=== PATIENT | male | born 1980 | race Caucasian/White ===

== ENCOUNTER → 2019-12-13 14:42 | Outpatient (BNVA) | payer OTHER, SELFPAY | PROVIDERS: Visit Provider Psychiatry & Neurology Psychiatry | DX: F43.12 Post-traumatic stress disorder, chronic (principal); F12.20 Cannabis dependence, uncomplicated; F10.20 Alcohol dependence, uncomplicated | CPT/HCPCS: 99204 ==

== ENCOUNTER 2020-04-10 09:23 | Emergency (ER) | payer MEDICARE, SELFPAY ==
[2020-04-10 10:05] VITALS: BP 135/84; PULSE 84; RESP 20; TEMP 36.8; O2SAT 96; BMI 21.5
--- NOTE | 2020-04-10 10:13 | W.ED.WOUNDLC ---
HPI - Wound/Laceration General: Chief Complaint: Wound/Laceration Stated Complaint: CHIN LAC Time Seen by Provider: 04/10/20 09:39 Source: patient Mode of arrival: ambulatory Limitations: no limitations History of Present Illness: HPI narrative: Patient is a 39-year-old male presents to ED today with complaints of a chin laceration that he sustained after accidentally tripping and falling at around 2am. He denies any other injury sustained during the fall. No LOC. No neck or back pain at this time. No headache. Last tetanus was 2013. Onset (ago): hour(s) Location: face Place: home Patient tetanus UTD: Yes Context: accidental Associated symptoms: Reports no associated symptoms Review of Systems Eyes: Denies: change in vision, blurry vision, photophobia, floaters or seeing flashes Musc: Denies: neck pain or back pain Skin/Breast: Reports: other (chin laceration ) Neuro: Denies: headache(s) PFSH ED PFSH: Social History (Updated 12/13/19 @ 15:02 by Ema Reveles LPN) Smoking and tobacco status: former smoker Quit status (tobacco): has quit using tobacco Year quit tobacco: 2016 Former quit date comment: 1 PPD for 15 years Second hand smoke exposure: No Physical Exam Const: COMMON NORMALS: no acute distress, average body habitus, patient oriented x3, no limitations, alert and well nourished Neck/C-Spine: COMMON NORMALS: full ROM CERVICAL SPINE: Yes cervical ROM normal, No pain with cervical ROM and No Cervical spine tenderness Back/Pelvis: COMMON NORMALS: thoracic and lumbar spine normal to inspection, no thoracic nor lumbar tenderness and thoraco-lumbar ROM normal Neuro: CEFERINO COMA SCALE: document GCS findings Ceferino coma scale eye opening: Spontaneous [place] coma scale verbal response: Orientated [place] coma scale motor response: Obey commands Ceferino coma scale total score: 15 COMMON NORMALS: patient oriented x3, CN's II-XII intact bilaterally, moves all extremities, no focal motor deficits, no sensory deficits noted and gait normal (apart from chronic limp from R LE injury) SENSORIUM/ORIENTATION: Yes alert Skin: OTHER: 1.5cm gapping chin laceration present; no bleeding Procedures Laceration Laceration 1: Site: face (chin) Size (cm): 1.5 Description: linear Depth: simple, single layer Local Anesthetic: lidocaine 1% and with epi Amount of anesthesia used (mL): 2.0 Pre-repair: wound explored and irrigated extensively Skin layer closed with: nylon Size (cm): 4-0 Number of sutures: 5 Technique: simple, interrupted Course Vital Signs: Vital signs: Vital Signs Temperature 98.2 F 04/10/20 10:05 Pulse Rate 84 04/10/20 10:05 Respiratory Rate 20 H 04/10/20 10:05 Blood Pressure 135/84 04/10/20 10:05 Pulse Oximetry 96 04/10/20 10:05 Discharge Plan Discharge Patient Disposition: Home, Self-Care Clinical Impression: Fall on same level from tripping as cause of accidental injury Chin laceration Qualifiers: Encounter type: initial encounter Qualified Code(s): S01.81XA - Laceration without foreign body of other part of head, initial encounter Condition: Stable Prescriptions: New cephalexin [Keflex] 500 mg capsule 500 mg PO Q6H 7 Days Qty: 28 RF: 0 No Action Multiple Vitamins Tablet 1 tab PO DAILY RF: 0 ibuprofen 800 mg Tablet 800 mg PO PRN RF: 0 Discharge Orders: Discharge Order (Routine); Ordered 04/10/20 Ordered By: Mary Deluna Referrals: FERNANDO [Other] Patient Instructions: Suture Care (ED), Laceration (ED) Activity Restrictions/Additional Instructions: SUTURES NEED TO BE CUT OUT IN 7 DAYS. Coding Level of Care Code ED Icing And Glaze Maker for Devan Fwd Exam Expanded Problem Focused
--- NOTE | 2020-04-10 11:14 | PC.NURSE ---
staff educator in room for sutures
[2020-04-10 11:43] VITALS: PULSE 80; RESP 20; O2SAT 97
--- NOTE | 2020-04-17 11:35 | PC.NURSE ---
Removed 5 sutures from pt's chin. Lac intact, no S/S of infection.
== END 2020-04-10 11:46 | disposition home or self-care (01) ==
PROVIDERS: Emergency Provider Physician Assistant
DX: S01.81XA Laceration without foreign body of other part of head, initial encounter (principal); W01.0XXA Fall on same level from slipping, tripping and stumbling without subsequent striking against object, initial encounter; Z87.891 Personal history of nicotine dependence
CPT/HCPCS: 12011; 12345; 99282; J2001

== ENCOUNTER 2020-07-09 13:22 | Outpatient (CLI) | payer MEDICARE, SELFPAY ==
--- NOTE | 2020-07-09 13:32 | XR_ITS ---
WS: [id number] RIGHT KNEE: 3 VIEW(S) TECHNIQUE: AP, oblique(s) and lateral. HISTORY: RIGHT LEG PAIN COMPARISON: None available. Extensive hardware is noted in the proximal tibia and fibula which has not been completely included o n this knee radiograph. Several of the screws are fractured. Mild joint space narrowing medial and lateral compartments. Slight lateral subluxation of the tibia. No joint effusion. No soft tissue abnormality. XR/XR knee RT 3V* [id number] IMPRESSION: 1. No acute knee abnormality. No joint effusion. 2. Patient has extensive hardware in the proximal tibia and fibula. This was i ncompletely included on this knee series. Several of the screws are fractured. Similar findings were seen on 10/09/2019.
== END 2020-07-09 13:23 | disposition home or self-care (01) ==
LOC: RADWPI 13:29
PROVIDERS: Visit Provider Nurse Practitioner Family
DX: M79.604 Pain in right leg (principal)
CPT/HCPCS: 73562

== ENCOUNTER → 2020-08-04 08:21 | Outpatient (BNVA) | payer MEDICARE, SELFPAY | PROVIDERS: Referring Provider Nurse Practitioner Family; Visit Provider Anesthesiology Pain Medicine | DX: G89.29 Other chronic pain (principal); M79.604 Pain in right leg; R29.898 Other symptoms and signs involving the musculoskeletal system; F10.20 Alcohol dependence, uncomplicated; F43.12 Post-traumatic stress disorder, chronic; Z79.899 Other long term (current) drug therapy | CPT/HCPCS: 99203; 99204 ==

== ENCOUNTER 2021-09-25 11:46 | Emergency (ER) | payer MEDICARE, SELFPAY ==
[2021-09-25 12:26] VITALS: BP 134/86; PULSE 117; RESP 18; TEMP 37.1; O2SAT 97; BMI 20.7
--- NOTE | 2021-09-25 12:46 | W.ED.SKABFB ---
HPI - Skin/Abscess/Foreign Bdy General: Chief complaint: Skin/Abscess/Foreign Body Stated complaint: POSS SPIDER BITS ON LLE & RUE Time Seen by Provider: 09/25/21 12:35 Source: patient and family Mode of arrival: wheelchair Limitations: no limitations History of Present Illness: HPI narrative: Patient is a 40-year-old male presents to ED today along with his significant other for concerns of skin lesions. Significant other states she has seen multiple spiders in their trailer and is concerned for possible spider bites. Patient states he has 3 lesions to his left leg and one to his right elbow. He denies history of staph or MRSA. No fever/chills. MD complaint: insect bite/sting and abscess/boil Onset (ago): day(s) Tetanus up to date: yes Location: RUE and LLE Severity: moderate Quality: burning Pain Consistency: constant Relieving factors: none Exacerbating factors: none Associated symptoms: Reports no associated symptoms; Deny chills, fever(s), nausea or vomiting Treatments prior to arrival: none Review of Systems Const: Denies: fever(s), chills, body aches, fatigue or malaise Card: Denies: chest pain Resp: Denies: dyspnea GI: Denies: abdominal pain, nausea or vomiting Skin/Breast: Reports: new lesions Neuro: Denies: numbness in extremities or sensory changes [facility] ED PFSH: Medical History (Updated 09/25/21 @ 12:46 by JOSEFINA Ching) S/p tibial fracture TIBIA / FIBULA FX REPAIR Family History (Updated 08/04/20 @ 08:42 by Macie Lopez LPN) Denies family history of Anesthesia complication Bleeding disorder Social History (Updated 08/04/20 @ 08:44 by Macie Lopez LPN) Smoking and tobacco status: former smoker Quit status (tobacco): has quit using tobacco Year quit tobacco: 2017 Former quit date comment: 1 PPD for 15 years Second hand smoke exposure: No Alcohol intake: current Alcohol intake frequency: few times a month Alcohol type: beer Lives independently: Yes History of recent travel: No Physical Exam Const: COMMON NORMALS: no acute distress, patient oriented x3, no limitations and alert GENERAL APPEARANCE: cooperative Resp: COMMON NORMALS: normal respiratory effort and clear to auscultation bilaterally AUSCULTATION: clear to auscultation bilaterally Cardio: COMMON NORMALS: regular rhythm RATE: tachycardic (mild) RHYTHM: regular rhythm Extremity: OTHER: R LE amputation EXTREMITY IMAGE (FRONT): 1. shallow ulcerative developing abscess; no fluctuance or fluid collection 2. 1.5cm hemorrhagic developing abscess w/o fluctuance; scant drainage present-culture attempted 3. small 1-2cm scabbed area w/o induration or fluctuance Neuro: COMMON NORMALS: patient oriented x3 SENSORIUM/ORIENTATION: Yes alert Skin: NARRATIVE SKIN EXAM: see extremity assessment; several abscess present none of which are amendable to drainage at this time; none with erythema that extends beyond wound edges; no lymphangitic streaking Course Vital Signs: Vital signs: Vital Signs Temperature 98.7 F 09/25/21 12:26 Pulse Rate 117 H 09/25/21 12:26 Respiratory Rate 18 09/25/21 12:26 Blood Pressure 134/86 09/25/21 12:26 Pulse Oximetry 97 09/25/21 12:26 MDM - Skin/Abscess/Foreign Bdy MDM Narrative: Medical decision making narrative: Patient here with multiple non-drainable abscesses most likely secondary to staph. There is one hemorrhagic lesion that does look somewhat suspicious for a possible spider bite. Culture was attempted from the small amount of drainage present. Will place on Bactrim and recommend follow-up with his primary care early next week for reevaluation. Return to ED precautions given. Discharge Plan Discharge Patient Disposition: Home Clinical Impression: Abscess of multiple sites Condition: Stable Prescriptions: New Bactrim DS 800-160 mg tablet 2 tab PO BID 7 Days Qty: 28 RF: 0 No Action citalopram [Celexa] 20 mg tablet 20 mg PO DAILY RF: 0 meloxicam 15 mg tablet 15 mg PO DAILY Qty: 30 RF: 0 gabapentin 300 mg capsule 300 mg PO TID Qty: 90 RF: 0 Multiple Vitamins Tablet 1 tab PO DAILY RF: 0 Discharge Orders: Discharge ED (Routine); Ordered 09/25/21 Ordered By: Mary Deluna Referrals: Lowell Fernandez [Primary Care Provider] - Patient Instructions: Brown Recluse Spider Bite (ED), Abscess (ED), Skin Abscess, Skin Abscess - Antibiotics Coding Level of Care Code ED Wire Brush Operator for Chg Wendy
--- NOTE | 2021-09-26 12:14 | PC.NURSE ---
Patient contacted regarding Group A Strep culture of wound, message left. Patient is to continue on Bactrim and begin Penicillin V potassium mg tab, take one tab PO q8HRS X 7 days. Will attempt to contact patient again for pharmacy verification to all in new Penicillin.
--- NOTE | 2021-09-26 12:26 | PC.NURSE ---
Medications called in [facility] pharmacy in [place], [place]
== END 2021-09-25 13:01 | disposition home or self-care (01) ==
PROVIDERS: Emergency Provider Physician Assistant; PCP Clinical Nurse Specialist Adult Health
DX: L02.416 Cutaneous abscess of left lower limb (principal); Z87.891 Personal history of nicotine dependence
CPT/HCPCS: 87070; 87075; 87077; 87186; 87205; 99283

== ENCOUNTER 2022-01-20 05:00 | Emergency (ER) | payer MEDICARE, SELFPAY ==
[2022-01-20] VITALS (19 sets, daily range): BP systolic 93–144; BP diastolic 66–103; PULSE 101–135; RESP 12–28; TEMP 36.4–36.7; O2SAT 85–100; BMI 19.9
--- NOTE | 2022-01-20 05:04 | CTR_ITS ---
PROCEDURE INFORMATION: Exam: CT Head Without Contrast Exam date and time: 01/20/2022 5:41 AM Age: 41 years old Clinical indication: Patient HX: Seizure activity with reported multiple falls. Patient had active seizure with emesis on CT couch. TECHNIQUE: Imaging protocol: Computed tomography of the head without contrast. Total images: 205 Radiation optimization: All CT scans at this facility use at least one of these dose optimization techniques: automated exposure control; mA and/or kV adjustment per patient size (includes targeted exams where dose is matched to clinical indication); or iterative reconstruction. COMPARISON: No relevant prior studies available. RADIATION DOSE METRICS: Total DLP (mGy-cm): 525.11 FINDINGS: Brain: Normal. No hemorrhage. Unremarkable white matter. No mass effect. Cerebral ventricles: No ventriculomegaly. Paranasal sinuses: Near complete opacification of the right maxillary sinus. Mastoid air cells: Visualized mastoid air cells are well aerated. Bones/joints: Temporomandibular joint degeneration. Soft tissues: Unremarkable. CT/CT head wo con* [id number] IMPRESSION: No acute intracranial abnormality.
--- NOTE | 2022-01-20 05:04 | ECG_ITS ---
[facility] Test Date: 2022-01-20 Pat Name: Pool Dubose Department: Room: Gender: Male [employer] Director: : 1980 Requested By: Guanaco Bee Order Number: [id number] Humberto MD: Stephen Rodriguez M.D. Measurements Intervals [place] Rate: 127 P: 74 SD: 198 QRS: -64 QRSD: 108 T: 82 QT: 411 QTc: 599 Interpretive Statements SINUS TACHYCARDIA INDETERMINATE AXIS LEFT ANTERIOR FASCICULAR BLOCK [QRS AXIS <= -45, QR IN I, RS IN II] MODERATE ST DEPRESSION [0.05+ mV ST DEPRESSION] No previous ECG available for comparison Electronically Signed On 01-20-2022 19:17:57 CDT by Stephen Rodriguez M.D. [email or web address]
--- NOTE | 2022-01-20 05:04 | CTR_ITS ---
PROCEDURE INFORMATION: Exam: CT Cervical Spine Without Contrast Exam date and time: 01/20/2022 5:44 AM Age: 41 years old Clinical indication: Injury or trauma; Blunt trauma; Patient HX: Seizure activity with reported multiple falls. Patient had active seizure with emesis on CT couch. ; Additional info: Fall TECHNIQUE: Imaging protocol: Computed tomography images of the cervical spine without contrast. Total images: 256 Radiation optimization: All CT scans at this facility use at least one of these dose optimization techniques: automated exposure control; mA and/or kV adjustment per patient size (includes targeted exams where dose is matched to clinical indication); or iterative reconstruction. COMPARISON: CT head wo con* [id number] 01/20/2022 5:41 AM RADIATION DOSE METRICS: Total DLP (mGy-cm): 639.35 FINDINGS: Bones/joints: No acute fracture. Normal alignment. Discs/Spinal canal/Neural foramina: C4-7 Degenerative disc disease with disc space narrowing and osteophyte formation. Uncovertebral joint degeneration is present. Lungs: There are multiple subpleural blebs in the lung apices. Soft tissues: Unremarkable. Other findings: Examination is motion limited. CT/CT cervical spin wo con* [id number] IMPRESSION: No acute findings.
--- NOTE | 2022-01-20 05:04 | XRR_ITS ---
PROCEDURE INFORMATION: Exam: XR Chest Exam date and time: 01/20/2022 4:25 AM Age: 41 years old Clinical indication: Other: Seizure TECHNIQUE: Imaging protocol: XR of the chest. Views: 1 view. COMPARISON: No relevant prior studies available. FINDINGS: Lungs: No focal airspace disease. Pleural spaces: Unremarkable. No pleural effusion. No pneumothorax. Heart/Mediastinum: Cardiomediastinal silhouette is within normal limits. Bones/joints: Plate and screw fixation of a remote right clavicle fracture. XR/XR chest 1V portable [id number] IMPRESSION: No acute cardiopulmonary abnormality.
--- NOTE | 2022-01-20 05:07 | W.ED.SEIZURE ---
Documented by User: Guanaco Bee MD 01/20/22 05:37 HPI - Seizure General: Chief Complaint: Seizure Stated Complaint: SEIZURE Time Seen by Provider: 01/20/22 05:04 Source: EMS Mode of arrival: EMS Limitations: altered mental status History of Present Illness: HPI Narrative: 41-year-old male is here by EMS for having multiple seizures tonight. He has a long history of alcoholism does have a history of withdrawal seizures and seizures in the past. He is not on any seizure medication. Patient here is altered not able to get any answers from here. He does have multiple bruises to his head that appear old EMS states that he has had multiple falls over the last few days per his family. He had 1 witnessed seizure per EMS. Review of Systems General: Reports: ROS unobtainable due to mental status [facility] ED PFSH: Medical History S/p tibial fracture TIBIA / FIBULA FX REPAIR Family History Denies family history of Anesthesia complication Bleeding disorder Social History Smoking and tobacco status: former smoker Quit status (tobacco): has quit using tobacco Year quit tobacco: 2017 Former quit date comment: 1 PPD for 15 years Second hand smoke exposure: No Alcohol intake: current Alcohol intake frequency: few times a month Alcohol type: beer Lives independently: Yes History of recent travel: No Physical Exam Const: COMMON NORMALS: negative for patient oriented x3 GENERAL APPEARANCE: disheveled and frail appearing HENMT: COMMON NORMALS: normocephalic; head/scalp not atraumatic (Multiple contusions to forehead) HEAD & SCALP: normocephalic; not atraumatic (Multiple contusions to forehead) Eye: COMMON NORMALS: Equal, round and reactive pupils present and EOMs intact bilaterally PUPIL: Yes Equal, round and reactive pupils present Neck/C-Spine: COMMON NORMALS: full ROM and supple Chest: COMMONS NORMALS: normal inspection of the chest and normal palpation of entire chest wall Resp: COMMON NORMALS: normal respiratory effort, No retractions, No use of accessory muscles and clear to auscultation bilaterally AUSCULTATION: clear to auscultation bilaterally Cardio: COMMON NORMALS: regular rate, regular rhythm and No murmurs present (Cardio) RATE: regular rate RHYTHM: regular rhythm GI: COMMON NORMALS: Normal to inspection, nondistended, normoactive bowel sounds present, Soft to palpation, non-tender and no masses PALPATION: Yes Soft to palpation Extremity: COMMON NORMALS: normal to inspection and full ROM Neuro: COMMON NORMALS: moves all extremities and no focal motor deficits; negative for patient oriented x3 Psych: COMMON NORMALS: negative for mental status grossly normal Skin: COMMON NORMALS: no rashes or lesions noted and no wounds GENERAL SKIN EXAM: no rashes or lesions noted Course Reevaluation(s): Reevaluation #1: Patient started having a seizure over an CAT scan when I arrived patient was given 2 mg of Ativan he is now stop seizing will load with Keppra as well. Time: 05:37 Vital Signs: Vital signs: Vital Signs Temperature 97.7 F 01/20/22 09:04 Pulse Rate 107 H 01/20/22 09:00 Respiratory Rate 21 H 01/20/22 09:00 Blood Pressure 134/96 01/20/22 09:00 Pulse Oximetry 96 01/20/22 09:00 MDM - Seizure Lab Data Result diagrams: 01/20/22 04:45 01/20/22 08:43 Labs: Radiology Impressions Cervical Spine CT 01/20/22 05:04 IMPRESSION: No acute findings. Head CT 01/20/22 05:04 IMPRESSION: No acute intracranial abnormality. Chest X-Ray 01/20/22 06:40 IMPRESSION: Endotracheal tube terminates approximately 6 cm above the jose alejandro. Laboratory Results WBC 6.4 10^3/uL (4.0-10.0) 01/20/22 04:45 RBC 3.73 10^6/uL (4.1-5.3) L 01/20/22 04:45 Hgb 12.9 g/dL (11.7-16.6) 01/20/22 04:45 Hct 34.8 % (42.0-52.0) L 01/20/22 04:45 MCV 93.3 fl (80-94) 01/20/22 04:45 MCH 34.6 pg (28.0-34.0) H 01/20/22 04:45 MCHC 37.1 g/dL (30.0-36.0) H 01/20/22 04:45 RDW 13.2 % (12.1-15.1) 01/20/22 04:45 Plt Count 49 10^3/cmm (130-400) L 01/20/22 04:45 MPV 11.5 fL (7.4-10.4) H 01/20/22 04:45 Neut % (Auto) 83.2 % 01/20/22 04:45 Lymph % (Auto) 5.9 % 01/20/22 04:45 [place] % (Auto) 10.1 % 01/20/22 04:45 Eos % (Auto) 0.0 % 01/20/22 04:45 Baso % (Auto) 0.5 % 01/20/22 04:45 Neut # (Auto) 5.34 10^3/uL (1.8-7.7) 01/20/22 04:45 Lymph # (Auto) 0.4 10^3/uL (0.8-4.8) L 01/20/22 04:45 [place] # (Auto) 0.7 10^3/uL (0.2-0.9) 01/20/22 04:45 Eos # (Auto) 0.0 10^3/uL (0.0-0.8) 01/20/22 04:45 Baso # (Auto) 0.0 10^3/uL (0.0-0.1) 01/20/22 04:45 Nucleated RBC % (auto) 0.3 % 01/20/22 04:45 Nucleated RBCs # 0.0 /100WBC 01/20/22 04:45 PT 13.50 SECONDS (12.1-14.9) 01/20/22 04:45 INR 1.00 (0.8-1.2) 01/20/22 04:45 Specimen Type Arterial 01/20/22 08:00 Sample Site Radial, left 01/20/22 08:00 ABG pH 7.41 (7.35-7.45) 01/20/22 08:00 ABG pCO2 57.6 mmHg (35-45) H 01/20/22 08:00 ABG pO2 339.0 mmHg (80.0-100.0) H 01/20/22 08:00 ABG HCO3 36.2 mmol/L (22-26) H 01/20/22 08:00 ABG O2 Saturation > 100.0 01/20/22 08:00 ABG Base Excess 9.7 mmol/L (-2.0-2.0) H 01/20/22 08:00 Ulices Test Pos 01/20/22 08:00 A-a O2 Gradient 37.3 mmHg (5-10) H 01/20/22 08:00 Hematocrit 35.1 % (42-52) L 01/20/22 08:00 Hgb O2 Saturation 97.8 % (95-100) 01/20/22 08:00 Carboxyhemoglobin 1.3 %THgb (0.4-20.1) 01/20/22 08:00 Methemoglobin 1.2 % (0.4-1.5) 01/20/22 08:00 Total Hemoglobin 11.4 g/dL (14-18) L 01/20/22 08:00 Sodium 128.0 mmol/L (131-143) L 01/20/22 08:00 Potassium 2.3 mmol/L (3.5-5.0) L 01/20/22 08:00 Glucose 142.0 mg/dL (70-115) H 01/20/22 08:00 Ionized Calcium 0.9 mmol/L (1.1-1.4) L 01/20/22 08:00 O2 Delivery Device Vent 01/20/22 08:00 FiO2 100.0 % 01/20/22 08:00 Tidal Volume 0.50 01/20/22 08:00 PEEP 8.0 cmH20 01/20/22 08:00 Rope Walker ID glc 01/20/22 08:00 Sodium Cancelled 01/20/22 07:30 Potassium Cancelled 01/20/22 07:30 Chloride Cancelled 01/20/22 07:30 Carbon Dioxide Cancelled 01/20/22 07:30 Anion Gap Cancelled 01/20/22 07:30 BUN 9 mg/dL (6-20) 01/20/22 08:43 Creatinine Cancelled 01/20/22 07:30 GFR Calculation Cancelled 01/20/22 07:30 Glucose Cancelled 01/20/22 07:30 Calculated Osmolality Cancelled 01/20/22 07:30 Lactic Acid Cancelled 01/20/22 07:45 Calcium Cancelled 01/20/22 07:30 Magnesium 2.0 mg/dL (1.7-2.3) 01/20/22 08:43 Total Bilirubin 3.4 mg/dL (0.15-1.2) H 01/20/22 04:45 AST 209 U/L (0-40) H 01/20/22 04:45 ALT 72 U/L (0-41) H 01/20/22 04:45 Alkaline Phosphatase 186 IU/L (40-130) H 01/20/22 04:45 Ammonia 93 umol/L (16-60) H 01/20/22 04:45 Creatine Kinase 211 U/L (39-308) 01/20/22 04:45 Total Protein 5.6 g/dL (6.6-8.7) L 01/20/22 04:45 Albumin 3.5 g/dL (3.5-5.2) 01/20/22 04:45 Globulin 2.1 g/dL (1.3-4.6) 01/20/22 04:45 Urine Color [place] (Yellow) 01/20/22 06:48 Urine Appearance Clear (CLEAR) 01/20/22 06:48 Urine pH 6.5 (5-7) 01/20/22 06:48 Ur Specific [place] 1.015 (1.005-1.030) 01/20/22 06:48 Urine Protein 1+ (Negative) H 01/20/22 06:48 Urine Glucose (UA) Norm (Normal) 01/20/22 06:48 Urine Ketones 2+ (Negative) H 01/20/22 06:48 Urine Blood 3+ (Negative) H 01/20/22 06:48 Urine Nitrate Negative (Negative) 01/20/22 06:48 Urine Bilirubin 1+ (Negative) H 01/20/22 06:48 Urine Urobilinogen 4 mg/dL (Negative) H 01/20/22 06:48 Ur Leukocyte Esterase Negative (Negative) 01/20/22 06:48 Urine RBC 0-4 /hpf (0-2) H 01/20/22 06:48 Urine WBC None /hpf (0-5) 01/20/22 06:48 Ur Squamous Epith Cells 5-10 /hpf (0-5) H 01/20/22 06:48 Amorphous Sediment Not Reportable 01/20/22 06:48 Urine Bacteria 1+ /hpf (NONE) H 01/20/22 06:48 Urine Mucus Trace /hpf 01/20/22 06:48 Salicylates < 0.3 mg/dL (3-10) L 01/20/22 04:45 Urine Opiates Screen Positive ng/mL (Negative) H 01/20/22 06:48 Acetaminophen < 5.0 ug/mL (10-30) L 01/20/22 04:45 Ur Barbiturates Screen Negative ng/mL (Negative) 01/20/22 06:48 Ur Phencyclidine Scrn Negative ng/mL (Negative) 01/20/22 06:48 Ur Amphetamines Screen Negative ng/mL (Negative) 01/20/22 06:48 U Benzodiazepines Scrn Negative ng/mL (Negative) 01/20/22 06:48 Urine Cocaine Screen Negative ng/mL (Negative) 01/20/22 06:48 U Marijuana (THC) Screen Positive ng/mL (Negative) H 01/20/22 06:48 Ethyl Alcohol < 10 mg/dL (0-10) 01/20/22 04:45 EKG Data EKG 1: Attestation: I personally reviewed and interpreted this EKG as follows: EKG interpretation date: 01/20/22 EKG interpretation time: 05:12 Interpretation: sinus tach hr [address] or t wave abnormalities qrs 108 qtc 486 Critical Care Time Critical Care Time: Critical Care Time: Yes Total Critical Care Time: 42 Attestation: The high probability of a clinically significant, sudden or life threatening deterioration of the patient's cv system(s) required my full and direct attention, intervention and personal management. The critical care time is as shown. This time is in addition to time spent performing any reported procedures but includes the following: [x] Data and vital sign review and interpretation [x] Patient assessment, examination and intervention [x] Documentation [x] Medication orders and management Discharge Plan Discharge Patient Disposition: Xfer Short-Term Hosp Clinical Impression: Alcohol withdrawal seizure with delirium, Cannabis dependence, uncomplicated, Alcohol use disorder, severe, in controlled environment, dependence, Acute hyponatremia, Thrombocytopenia, Hypomagnesemia, Acute hypokalemia, Intractable seizures Condition: Stable Prescriptions: No Action Unable to Assess 0RF Rx Instructions: pt unable to verify medications-pts girlfriend states she doesnt think the pt takes any medications-states he use to take meds but hasnt for a long time Referrals: Lowell Fernandez [Primary Care Provider] - Sign Out Sign Out Data: Patient Sign Out occurred on 01/20/22 at 06:10. Patient's care was discussed, and care was transferred from to King Roberson DO. Coding Level of Care Code ED Bulk Fluids Handler for Chg Fwd Exam Comprehensive Documented by User: King Roberson DO 01/20/22 09:11 HPI - Seizure General: Chief Complaint: Seizure Stated Complaint: SEIZURE Time Seen by Provider: 01/20/22 05:04 PFSH ED PFSH: Medical History S/p tibial fracture TIBIA / FIBULA FX REPAIR Family History Denies family history of Anesthesia complication Bleeding disorder Social History Smoking and tobacco status: former smoker Quit status (tobacco): has quit using tobacco Year quit tobacco: 2016 Former quit date comment: 1 PPD for 15 years Second hand smoke exposure: No Alcohol intake: current Alcohol intake frequency: few times a month Alcohol type: beer Lives independently: Yes History of recent travel: No Procedures Intubation Time out performed: Yes sedative: Etomidate Mg Given: 30 paralytic: Rocuronium Mg Given: 50 Laryngoscope: fiber optic video scope Assist Device Used: fiber optic device ET Tube Size: 8 ET Tube Uncuffed: No Tube Secured Depth (cm): 22 Tube Placement Confirmation: visualized tube passing through cords, equal breath sounds bilaterally, no breath sounds over epigastrium and confirmation by capnometry Patient Tolerated Procedure: well Intubation Complications: none Additional Comments: Initial chest x-ray tip of the ET tube is above the clavicles and sternal notch. ET tube advanced 3 cm repeat film shows ET tube just below the level of the clavicles and NG tube in place in the gastrum. Course Vital Signs: Vital signs: Vital Signs Temperature 97.7 F 01/20/22 09:04 Pulse Rate 107 H 01/20/22 09:00 Respiratory Rate 21 H 01/20/22 09:00 Blood Pressure 134/96 01/20/22 09:00 Pulse Oximetry 96 01/20/22 09:00 MDM - Seizure MDM Narrative Medical decision making narrative: Simple care change of shift as is receiving signout patient began to seize again he had already been given Ativan and loaded with Keppra is given another 2 mg of Ativan he did not have improvement we elected to intubate. Patient was intubated see note below no complications are started on Versed and fentanyl no evidence of seizures Versed titrated up his blood pressure actually improved after he was intubated. Chest x-ray confirmed OG and ET tube placements ET tube was adjusted x1. We do not have neurology available at our facility. Discussed with the hospitalist we both concur he will require neurology consult and likely require continuous EEG. We will go ahead and transfer made arrangements for him to transfer to [facility] in [place]. Have discussed with receiving physician there. He will be transferred by ground ambulance. Medical Records Attestation: I reviewed the patient's medical records. Lab Data Attestation: I reviewed the patient's lab results. Result diagrams: 01/20/22 04:45 01/20/22 08:43 Labs: Radiology Impressions Cervical Spine CT 01/20/22 05:04 IMPRESSION: No acute findings. Head CT 01/20/22 05:04 IMPRESSION: No acute intracranial abnormality. Chest X-Ray 01/20/22 06:40 IMPRESSION: Endotracheal tube terminates approximately 6 cm above the jose alejandro. Laboratory Results WBC 6.4 10^3/uL (4.0-10.0) 01/20/22 04:45 RBC 3.73 10^6/uL (4.1-5.3) L 01/20/22 04:45 Hgb 12.9 g/dL (11.7-16.6) 01/20/22 04:45 Hct 34.8 % (42.0-52.0) L 01/20/22 04:45 MCV 93.3 fl (80-94) 01/20/22 04:45 MCH 34.6 pg (28.0-34.0) H 01/20/22 04:45 MCHC 37.1 g/dL (30.0-36.0) H 01/20/22 04:45 RDW 13.2 % (12.1-15.1) 01/20/22 04:45 Plt Count 49 10^3/cmm (130-400) L 01/20/22 04:45 MPV 11.5 fL (7.4-10.4) H 01/20/22 04:45 Neut % (Auto) 83.2 % 01/20/22 04:45 Lymph % (Auto) 5.9 % 01/20/22 04:45 [place] % (Auto) 10.1 % 01/20/22 04:45 Eos % (Auto) 0.0 % 01/20/22 04:45 Baso % (Auto) 0.5 % 01/20/22 04:45 Neut # (Auto) 5.34 10^3/uL (1.8-7.7) 01/20/22 04:45 Lymph # (Auto) 0.4 10^3/uL (0.8-4.8) L 01/20/22 04:45 [place] # (Auto) 0.7 10^3/uL (0.2-0.9) 01/20/22 04:45 Eos # (Auto) 0.0 10^3/uL (0.0-0.8) 01/20/22 04:45 Baso # (Auto) 0.0 10^3/uL (0.0-0.1) 01/20/22 04:45 Nucleated RBC % (auto) 0.3 % 01/20/22 04:45 Nucleated RBCs # 0.0 /100WBC 01/20/22 04:45 PT 13.50 SECONDS (12.1-14.9) 01/20/22 04:45 INR 1.00 (0.8-1.2) 01/20/22 04:45 Specimen Type Arterial 01/20/22 08:00 Sample Site Radial, left 01/20/22 08:00 ABG pH 7.41 (7.35-7.45) 01/20/22 08:00 ABG pCO2 57.6 mmHg (35-45) H 01/20/22 08:00 ABG pO2 339.0 mmHg (80.0-100.0) H 01/20/22 08:00 ABG HCO3 36.2 mmol/L (22-26) H 01/20/22 08:00 ABG O2 Saturation > 100.0 01/20/22 08:00 ABG Base Excess 9.7 mmol/L (-2.0-2.0) H 01/20/22 08:00 Ulices Test Pos 01/20/22 08:00 A-a O2 Gradient 37.3 mmHg (5-10) H 01/20/22 08:00 Hematocrit 35.1 % (42-52) L 01/20/22 08:00 Hgb O2 Saturation 97.8 % (95-100) 01/20/22 08:00 Carboxyhemoglobin 1.3 %THgb (0.4-20.1) 01/20/22 08:00 Methemoglobin 1.2 % (0.4-1.5) 01/20/22 08:00 Total Hemoglobin 11.4 g/dL (14-18) L 01/20/22 08:00 Sodium 128.0 mmol/L (131-143) L 01/20/22 08:00 Potassium 2.3 mmol/L (3.5-5.0) L 01/20/22 08:00 Glucose 142.0 mg/dL (70-115) H 01/20/22 08:00 Ionized Calcium 0.9 mmol/L (1.1-1.4) L 01/20/22 08:00 O2 Delivery Device Vent 01/20/22 08:00 FiO2 100.0 % 01/20/22 08:00 Tidal Volume 0.50 01/20/22 08:00 PEEP 8.0 cmH20 01/20/22 08:00 Rope Walker ID glc 01/20/22 08:00 Sodium Cancelled 01/20/22 07:30 Potassium Cancelled 01/20/22 07:30 Chloride Cancelled 01/20/22 07:30 Carbon Dioxide Cancelled 01/20/22 07:30 Anion Gap Cancelled 01/20/22 07:30 BUN 9 mg/dL (6-20) 01/20/22 08:43 Creatinine Cancelled 01/20/22 07:30 GFR Calculation Cancelled 01/20/22 07:30 Glucose Cancelled 01/20/22 07:30 Calculated Osmolality Cancelled 01/20/22 07:30 Lactic Acid Cancelled 01/20/22 07:45 Calcium Cancelled 01/20/22 07:30 Magnesium 2.0 mg/dL (1.7-2.3) 01/20/22 08:43 Total Bilirubin 3.4 mg/dL (0.15-1.2) H 01/20/22 04:45 AST 209 U/L (0-40) H 01/20/22 04:45 ALT 72 U/L (0-41) H 01/20/22 04:45 Alkaline Phosphatase 186 IU/L (40-130) H 01/20/22 04:45 Ammonia 93 umol/L (16-60) H 01/20/22 04:45 Creatine Kinase 211 U/L (39-308) 01/20/22 04:45 Total Protein 5.6 g/dL (6.6-8.7) L 01/20/22 04:45 Albumin 3.5 g/dL (3.5-5.2) 01/20/22 04:45 Globulin 2.1 g/dL (1.3-4.6) 01/20/22 04:45 Urine Color [place] (Yellow) 01/20/22 06:48 Urine Appearance Clear (CLEAR) 01/20/22 06:48 Urine pH 6.5 (5-7) 01/20/22 06:48 Ur Specific [place] 1.015 (1.005-1.030) 01/20/22 06:48 Urine Protein 1+ (Negative) H 01/20/22 06:48 Urine Glucose (UA) Norm (Normal) 01/20/22 06:48 Urine Ketones 2+ (Negative) H 01/20/22 06:48 Urine Blood 3+ (Negative) H 01/20/22 06:48 Urine Nitrate Negative (Negative) 01/20/22 06:48 Urine Bilirubin 1+ (Negative) H 01/20/22 06:48 Urine Urobilinogen 4 mg/dL (Negative) H 01/20/22 06:48 Ur Leukocyte Esterase Negative (Negative) 01/20/22 06:48 Urine RBC 0-4 /hpf (0-2) H 01/20/22 06:48 Urine WBC None /hpf (0-5) 01/20/22 06:48 Ur Squamous Epith Cells 5-10 /hpf (0-5) H 01/20/22 06:48 Amorphous Sediment Not Reportable 01/20/22 06:48 Urine Bacteria 1+ /hpf (NONE) H 01/20/22 06:48 Urine Mucus Trace /hpf 01/20/22 06:48 Salicylates < 0.3 mg/dL (3-10) L 01/20/22 04:45 Urine Opiates Screen Positive ng/mL (Negative) H 01/20/22 06:48 Acetaminophen < 5.0 ug/mL (10-30) L 01/20/22 04:45 Ur Barbiturates Screen Negative ng/mL (Negative) 01/20/22 06:48 Ur Phencyclidine Scrn Negative ng/mL (Negative) 01/20/22 06:48 Ur Amphetamines Screen Negative ng/mL (Negative) 01/20/22 06:48 U Benzodiazepines Scrn Negative ng/mL (Negative) 01/20/22 06:48 Urine Cocaine Screen Negative ng/mL (Negative) 01/20/22 06:48 U Marijuana (THC) Screen Positive ng/mL (Negative) H 01/20/22 06:48 Ethyl Alcohol < 10 mg/dL (0-10) 01/20/22 04:45 Critical Care Time Critical Care Time: Critical Care Time: Yes Total Critical Care Time: 60 Attestation: The high probability of a clinically significant, sudden or life threatening deterioration of the patient's neurologic respiratory cardiovascular system(s) required my full and direct attention, intervention and personal management. The critical care time is as shown. This time is in addition to time spent performing any reported procedures but includes the following: [x] Data and vital sign review and interpretation [x] Patient assessment, examination and intervention [x] Documentation [x] Medication orders and management Discharge Plan Discharge Patient Disposition: Xfer Short-Term Hosp Clinical Impression: Alcohol withdrawal seizure with delirium, Cannabis dependence, uncomplicated, Alcohol use disorder, severe, in controlled environment, dependence, Acute hyponatremia, Thrombocytopenia, Hypomagnesemia, Acute hypokalemia, Intractable seizures Condition: Stable Prescriptions: No Action Unable to Assess 0RF Rx Instructions: pt unable to verify medications-pts girlfriend states she doesnt think the pt takes any medications-states he use to take meds but hasnt for a long time Referrals: Lowell Fernandez [Primary Care Provider] - Sign Out Sign Out Data: Patient Sign Out occurred on 01/20/22 at 06:10. Patient's care was discussed, and care was transferred from to King Roberson DO. Coding Level of Care Code ED Bulk Fluids Handler for Chg Fwd Exam Comprehensive
[2022-01-20] MEDS: sodium chloride 0.9% 1,000 ML 999 ML IV ×3 (05:11→08:30)
[2022-01-20 05:14] LABS: Basophils % 0.5 %; Hematocrit 34.8 % (42.0-52.0); Hemoglobin 12.9 g/dL (11.7-16.6); Lymphocytes # 0.4 10^3/uL (0.8-4.8); Lymphocytes % 5.9 %; Mean Corpuscular HGB Conc 37.1 g/dL (30.0-36.0); Mean Corpuscular Hemoglobin 34.6 pg (28.0-34.0); Mean Corpuscular Volume 93.3 fl (80-94); Mean Platelet Volume 11.5 fL (7.4-10.4); Monocytes # 0.7 10^3/uL (0.2-0.9); Monocytes % 10.1 %; Neutrophils # 5.34 10^3/uL (1.8-7.7); Neutrophils % 83.2 %; Nucleated Red Blood Cells % 0.3 %; Platelet Count 49 10^3/cmm (130-400); Red Blood Count 3.73 10^6/uL (4.1-5.3); Red Cell Distribution Width 13.2 % (12.1-15.1); White Blood Count 6.4 10^3/uL (4.0-10.0)
[2022-01-20 05:28] LABS: Alanine Aminotransferase 72 U/L (0-41); Albumin Level 3.5 g/dL (3.5-5.2); Alkaline Phosphatase 186 IU/L (40-130); Anion Gap 38.3 (5-19); Aspartate Amino Transferase 209 U/L (0-40); Blood Urea Nitrogen 10 mg/dL (6-20); Calcium 8.9 mg/dL (8.5-10.5); Carbon Dioxide 22 mmol/L (22-29); Chloride 64 mmol/L (98-107); Globulin 2.1 g/dL (1.3-4.6); Glomerular Filtration Rate 181.5 mL/min (90-130); Glucose 139 mg/dL (65-115); Osmolality Calculated 255 mOsm/kg (285-295); Sodium 122 mmol/L (136-145); Total Bilirubin 3.4 mg/dL (0.15-1.2); Total Protein 5.6 g/dL (6.6-8.7)
[2022-01-20 05:33] LABS: Ammonia 93 umol/L (16-60)
[2022-01-20 05:39] LABS: Acetaminophen < 5.0 ug/mL (10-30); Alcohol Level < 10 mg/dL (0-10); Salicylate < 0.3 mg/dL (3-10)
[2022-01-20 05:40] LABS: Potassium 2.3 mmol/L (3.5-5.1)
[2022-01-20] MEDS: LORazepam 2 mg/mL INJ 1 mL IVP (05:40)
[2022-01-20 05:59] LABS: Magnesium 1.5 mg/dL (1.7-2.3)
[2022-01-20] MEDS: rocuronium 10 mg/mL INJ 5mL 50 MG IVP (06:18)
--- NOTE | 2022-01-20 06:32 | PC.NURSE ---
0620 - Dr. Roberson intubated patient with 8.0 ET tube, 22 cm at the teeth, positive color change, and bilateral lung sounds throughout, no abd gurgling heard.
--- NOTE | 2022-01-20 06:40 | XRR_ITS ---
PROCEDURE INFORMATION: Exam: XR Chest Exam date and time: 01/20/2022 5:28 AM Age: 41 years old Clinical indication: Device placement; Ett placement (vent status); Additional info: Et tube placment TECHNIQUE: Imaging protocol: XR of the chest. Views: 1 view. COMPARISON: CR (CHEST, ) 01/20/2022 4:25 AM FINDINGS: Tubes, catheters and devices: Endotracheal tube terminates approximately 6 cm above the jose alejandro. Enteric tube passes into the stomach. Lungs: Unremarkable. No consolidation. Pleural spaces: Unremarkable. No pleural effusion. No pneumothorax. Heart/Mediastinum: Unremarkable. No cardiomegaly. Bones/joints: Unremarkable. XR/XR chest 1V portable [id number] IMPRESSION: Endotracheal tube terminates approximately 6 cm above the jose alejandro.
[2022-01-20] MEDS: lidocaine 1% 5 ML in potassium chloride premix 100 ML 25 ML IV (06:42)
[2022-01-20] MEDS: magnesium sulfate premix 2 GM/50 ML PIGGYBACK IV (06:42)
[2022-01-20 06:56] LABS: Add Urine Microscopic? YES; Bilirubin Urine 1+ (Negative); Blood Urine 3+ (Negative); Glucose Urine UA Norm (Normal); Ketones Urine 2+ (Negative); Leukocyte Esterase Urine Negative (Negative); Nitrate Urine Negative (Negative); Protein Urine 1+ (Negative); Specific Gravity, Urine 1.015 (1.005-1.030); Urine Appearance Clear (CLEAR); Urine Color Orange (Yellow); Urobilinogen Urine 4 mg/dL (Negative); pH Urine 6.5 (5-7)
[2022-01-20] MEDS: midazolam 1 mg/mL INJ 2 mL 3 MG IVP (07:02)
[2022-01-20 07:04] LABS: Amphetamines Screen Urine Negative (Negative); Barbiturates Screen Urine Negative (Negative); Benzodiazepines Screen Urine Negative (Negative); Cocaine Screen Urine Negative (Negative); Opiate Screen Urine Positive (Negative); PCP Screen Urine Negative (Negative); THC Screen Urine Positive (Negative)
[2022-01-20 07:07] LABS: Creatine Phosphokinase 211 U/L (39-308)
[2022-01-20] MEDS: piperacillin-tazobactam 3.375 GM in sodium chloride 0.9% (plus) 50 ML IV (07:21)
[2022-01-20 07:33] LABS: Bacteria Urine 1+ /hpf; Mucus Urine TRACE /hpf; RBC Urine 0-4 /hpf (0-2)
[2022-01-20 07:34] LABS: Add Urine Culture? No
[2022-01-20 08:07] LABS: ABG PCO2 57.6 mmHg (35-45); ABG PH Result 7.41 (7.35-7.45); Alveolar-Arterial Oxygen Gradi 37.3 mmHg (5-10); Arterial Blood Gas Hematocrit 35.1 % (42-52); Base Excess ABG 9.7 mmol/L (-2.0-2.0); Blood Gas Allen Test Pos; Blood Gas Operator Identificat glc; Blood Gas Sample Site Radial, left; Blood Gas Sample Type Arterial; Carboxyhemoglobin 1.3 %THgb (0.4-20.1); HCO3 ABG 36.2 mmol/L (22-26); HGB O2 Sat 97.8 % (95-100); Ionized Calcium Level - ABG 0.9 mmol/L (1.1-1.4); Methemoglobin 1.2 % (0.4-1.5); Oxygen Device VENT; Oxygen Saturation ABG > 100.0; Potassium Level - ABG 2.3 mmol/L (3.5-5.0); Total Hemoglobin 11.4 g/dL (14-18)
[2022-01-20 09:06] LABS: Blood Urea Nitrogen 9 mg/dL (6-20); Calcium 7.1 mg/dL (8.5-10.5); Carbon Dioxide 31 mmol/L (22-29); Chloride 82 mmol/L (98-107); Glomerular Filtration Rate 522.5 mL/min (90-130); Glucose 143 mg/dL (65-115); Lactic Sepsis W/Reflex 3.6 mmol/L (0.5-2.2); Osmolality Calculated 265 mOsm/kg (285-295); Sodium 127 mmol/L (136-145)
[2022-01-20 09:07] LABS: Anion Gap 16.6 (5-19); Creatinine Clr Calc Pharmacy 450.7401
[2022-01-20 09:08] LABS: Potassium 2.6 mmol/L (3.5-5.1)
[2022-01-20] MEDS: midazolam 1 mg/mL INJ 2 mL 5 MG IV (10:19)
[2022-01-20] MEDS: midazolam 1 mg/mL INJ 2 mL 5 MG IVP (10:20)
[2022-01-20 10:35] LABS: Reflex Lactate Order REFLEX LACTIC ORDERD
== END 2022-01-20 10:26 | disposition short-term general hospital (02) ==
PROVIDERS: Emergency Medicine; Emergency Provider Family Medicine; PCP Clinical Nurse Specialist Adult Health
DX: G40.919 Epilepsy, unspecified, intractable, without status epilepticus (principal); F10.231 Alcohol dependence with withdrawal delirium; F12.20 Cannabis dependence, uncomplicated; E87.1 Hypo-osmolality and hyponatremia; D69.6 Thrombocytopenia, unspecified; E83.42 Hypomagnesemia; E87.6 Hypokalemia; Z87.891 Personal history of nicotine dependence
CPT/HCPCS: 31500; 36415; 36600; 51702; 70450; 71045; 72125; 80048; 80051; 80053; 80306; 80307; 81001; 82140; 82330; 82550; 82805; 83605; 83735; 85025; 85610; 93005; 94002; 94799; 96365; 96366; 96367; 96375; 99291; 99292; J1953; J2060; J2250; J2543; J3010; J3475; J3480; J3490; J7030; J7050; Q2009

== ENCOUNTER 2022-05-18 14:06 | Inpatient (IN) | payer MEDICARE, MEDICAID, SELFPAY ==
[2022-05-18 14:20] VITALS: BP 104/73; PULSE 130; RESP 17; TEMP 36.9; O2SAT 95
--- NOTE | 2022-05-18 14:32 | PC.PHAR ---
pt states he takes no rx medications-ext med history shows folic acid 1mg daily and vitamin b1 100mg daily filled 01/30/22 30d/s pt states not taken for a while
--- NOTE | 2022-05-18 14:33 | ED.C_ITS ---
HPI - Psych General: Chief Complaint: Psychiatric Symptoms Stated Complaint: ETOH, PSYCH EVAL Time Seen by Provider: 05/18/22 14:13 PFSH ED PFSH: Medical History S/p tibial fracture TIBIA / FIBULA FX REPAIR Family History Denies family history of Anesthesia complication Bleeding disorder Social History Smoking and tobacco status: former smoker Quit status (tobacco): has quit using tobacco Year quit tobacco: 2016 Former quit date comment: 1 PPD for 15 years Second hand smoke exposure: No Alcohol intake: current Alcohol intake frequency: few times a month Alcohol type: beer Lives independently: Yes History of recent travel: No Course Vital Signs: Vital signs: Vital Signs Temperature 98.4 F 05/18/22 14:20 Pulse Rate 130 H 05/18/22 14:20 Respiratory Rate 17 05/18/22 14:20 Blood Pressure 104/73 05/18/22 14:20 Pulse Oximetry 95 05/18/22 14:20 Discharge Plan Discharge Condition: Stable Prescriptions: No Action Men's One Daily Tablet 1 tab PO DAILY 0RF Coding Level of Care Code ED Director Chemistry for Devan Nguyen
--- NOTE | 2022-05-18 14:33 | W.ED.GENADLT ---
HPI - General Adult General: Chief complaint: Psychiatric Symptoms Stated complaint: ETOH, PSYCH EVAL Time Seen by Provider: 05/18/22 14:13 History of Present Illness: HPI: 41yo patient w/ hx of alcohol dependence presenting to the emergency room for patient was disinhibited, naked at home. Patient was found by his grandchildren and his daughters at home. EMS was called patient was brought to the emergency room. On arrival, the patient is AAOx3 and cooperative with my evaluation. No focal complaints of chest pain, shortness of breath, palpitations, N/V, focal GI/ complaints. Currently denies SI/HI. No complaints of hallucinations. Onset: chronic Duration: ongoing Location: home Severity: severe Associated symptoms: Deny chest pain, dyspnea, nausea, rash, palpitations or vomiting Review of Systems Const: Denies: fever(s) or chills Eyes: Denies: change in vision ENMT: Denies: mouth pain Card: Denies: chest pain or palpitations Resp: Denies: dyspnea or non-productive cough GI: Denies: abdominal pain, nausea, vomiting or diarrhea : Denies: dysuria Musc: Denies: extremity pain Skin/Breast: Denies: rash or new lesions Neuro: Denies: weakness in extremities Psych: Reports: irritability and other (+psychosis) Vidal/Lymph: Denies: easy bruising PFSH ED PFSH: Medical History S/p tibial fracture TIBIA / FIBULA FX REPAIR Family History Denies family history of Anesthesia complication Bleeding disorder Social History Smoking and tobacco status: former smoker Quit status (tobacco): has quit using tobacco Year quit tobacco: 2017 Former quit date comment: 1 PPD for 15 years Second hand smoke exposure: No Alcohol intake: current Alcohol intake frequency: few times a month Alcohol type: beer Lives independently: Yes History of recent travel: No Physical Exam Const: COMMON NORMALS: alert HENMT: COMMON NORMALS: atraumatic HEAD & SCALP: atraumatic MOUTH: moist mucous membranes not abnormal Eye: COMMON NORMALS: EOMs intact bilaterally and conjunctivae normal CONJUNCTIVA: Yes conjunctivae normal Neck/C-Spine: COMMON NORMALS: full ROM and supple Resp: COMMON NORMALS: normal respiratory effort and clear to auscultation bilaterally AUSCULTATION: clear to auscultation bilaterally Cardio: COMMON NORMALS: regular rate RATE: regular rate GI: COMMON NORMALS: Soft to palpation and non-tender PALPATION: Yes Soft to palpation Extremity: COMMON NORMALS: full ROM Neuro: SENSORIUM/ORIENTATION: Yes alert MOTOR EXAM: No Abnormal motor strength present and Other motor observations present (no focal motor deficits) Psych: COMMON NORMALS: speech normal SPEECH: Yes normal speech MOOD & AFFECT: Yes euthymic mood Course Vital Signs: Vital signs: Vital Signs Temperature 98.4 F 05/18/22 14:20 Pulse Rate 130 H 05/18/22 14:20 Respiratory Rate 17 05/18/22 14:20 Blood Pressure 104/73 05/18/22 14:20 Pulse Oximetry 95 05/18/22 14:20 MDM - General Adult Medical Decision Making [41]yo patient w/ hx of alcohol dependence presenting for psychosis and disinhibition after drinking alcohol. HDS, exam within normal limit. On arrival, patient is coherent and understanding. No longer skin slurring thoughts are linear and organized, and the patient has no AH/VH, or HI. Clinically the patient displays no overt toxidrome; they are well appearing, with low suspicion for toxic ingestion given history and exam. Symptoms unlikely 2/2 anemia, hypothyroidism, infection, or ICH. Workup: CBC, CMP, Lipase, salicylate/tylenol, serum ethanol, UDS Lab findings: wnl, +alcohol level >300 [3:40pm] On reassessment, labs and workup wnl. Patient is hemodynamically stable with no acute medical complaints. Case discussed with psychiatric provider Dr. Calvillo at [facility] psych inpatient with recommendation for admission Disposition: Psych Lab Data : 05/18/22 14:20 05/18/22 14:20 Laboratory Results WBC 10.1 10^3/uL (4.0-10.0) H 05/18/22 14:20 RBC 4.33 10^6/uL (4.1-5.3) 05/18/22 14:20 Hgb 13.1 g/dL (11.7-16.6) 05/18/22 14:20 Hct 37.2 % (42.0-52.0) L 05/18/22 14:20 MCV 85.9 fl (80-94) 05/18/22 14:20 MCH 30.3 pg (28.0-34.0) 05/18/22 14:20 MCHC 35.2 g/dL (30.0-36.0) 05/18/22 14:20 RDW 19.0 % (12.1-15.1) H 05/18/22 14:20 Plt Count 229 10^3/cmm (130-400) 05/18/22 14:20 MPV 9.2 fL (7.4-10.4) 05/18/22 14:20 Neut % (Auto) 75.1 % 05/18/22 14:20 Lymph % (Auto) 13.2 % 05/18/22 14:20 [place] % (Auto) 9.9 % 05/18/22 14:20 Eos % (Auto) 0.1 % 05/18/22 14:20 Baso % (Auto) 1.3 % 05/18/22 14:20 Neut # (Auto) 7.62 10^3/uL (1.8-7.7) 05/18/22 14:20 Lymph # (Auto) 1.3 10^3/uL (0.8-4.8) 05/18/22 14:20 [place] # (Auto) 1.0 10^3/uL (0.2-0.9) H 05/18/22 14:20 Eos # (Auto) 0.0 10^3/uL (0.0-0.8) 05/18/22 14:20 Baso # (Auto) 0.1 10^3/uL (0.0-0.1) 05/18/22 14:20 Nucleated RBC % (auto) 0 % 05/18/22 14:20 Nucleated RBCs # 0.0 /100WBC 05/18/22 14:20 Sodium 141 mmol/L (136-145) 05/18/22 14:20 Potassium 3.0 mmol/L (3.5-5.1) L 05/18/22 14:20 Chloride 97 mmol/L (98-107) L 05/18/22 14:20 Carbon Dioxide 24 mmol/L (22-29) 05/18/22 14:20 Anion Gap 23.0 (5-19) H 05/18/22 14:20 BUN 6 mg/dL (6-20) 05/18/22 14:20 Creatinine 0.4 mg/dL (0.7-1.2) L 05/18/22 14:20 GFR Calculation 234.8 mL/min (90-130) H 05/18/22 14:20 Glucose 137 mg/dL (65-115) H 05/18/22 14:20 Calculated Osmolality 292 mOsm/kg (285-295) 05/18/22 14:20 Calcium 8.4 mg/dL (8.5-10.5) L 05/18/22 14:20 Total Bilirubin 0.3 mg/dL (0.15-1.2) 05/18/22 14:20 AST 100 U/L (0-40) H 05/18/22 14:20 ALT 59 U/L (0-41) H 05/18/22 14:20 Alkaline Phosphatase 99 IU/L (40-130) 05/18/22 14:20 Total Protein 6.5 g/dL (6.6-8.7) L 05/18/22 14:20 Albumin 3.9 g/dL (3.5-5.2) 05/18/22 14:20 Globulin 2.6 g/dL (1.3-4.6) 05/18/22 14:20 Lipase 20 U/L (13-60) 05/18/22 14:20 Salicylates < 0.3 mg/dL (3-10) L 05/18/22 14:20 Acetaminophen < 5.0 ug/mL (10-30) L 05/18/22 14:20 Ethyl Alcohol 313 mg/dL (0-10) H* 05/18/22 14:20 Discharge Plan Discharge Patient Disposition: Admitted As Inpatient Clinical Impression: Psychosis Condition: Stable Coding Level of Care Code ED Linter Operator for Rhinag Fwd Exam Comprehensive
[2022-05-18 14:57] LABS: Basophils # 0.1 10^3/uL (0.0-0.1); Basophils % 1.3 %; Eosinophils % 0.1 %; Hematocrit 37.2 % (42.0-52.0); Hemoglobin 13.1 g/dL (11.7-16.6); Lymphocytes # 1.3 10^3/uL (0.8-4.8); Lymphocytes % 13.2 %; Mean Corpuscular HGB Conc 35.2 g/dL (30.0-36.0); Mean Corpuscular Hemoglobin 30.3 pg (28.0-34.0); Mean Corpuscular Volume 85.9 fl (80-94); Mean Platelet Volume 9.2 fL (7.4-10.4); Monocytes % 9.9 %; Neutrophils # 7.62 10^3/uL (1.8-7.7); Neutrophils % 75.1 %; Nucleated Red Blood Cells % 0 %; Platelet Count 229 10^3/cmm (130-400); Red Blood Count 4.33 10^6/uL (4.1-5.3); White Blood Count 10.1 10^3/uL (4.0-10.0)
[2022-05-18 15:31] LABS: Alanine Aminotransferase 59 U/L (0-41); Albumin Level 3.9 g/dL (3.5-5.2); Alkaline Phosphatase 99 IU/L (40-130); Aspartate Amino Transferase 100 U/L (0-40); Blood Urea Nitrogen 6 mg/dL (6-20); Calcium 8.4 mg/dL (8.5-10.5); Carbon Dioxide 24 mmol/L (22-29); Chloride 97 mmol/L (98-107); Globulin 2.6 g/dL (1.3-4.6); Glomerular Filtration Rate 234.8 mL/min (90-130); Glucose 137 mg/dL (65-115); Lipase 20 U/L (13-60); Osmolality Calculated 292 mOsm/kg (285-295); Salicylate < 0.3 mg/dL (3-10); Sodium 141 mmol/L (136-145); Total Bilirubin 0.3 mg/dL (0.15-1.2); Total Protein 6.5 g/dL (6.6-8.7)
[2022-05-18 15:32] LABS: Acetaminophen < 5.0 ug/mL (10-30)
[2022-05-18 15:33] LABS: Alcohol Level 313 mg/dL (0-10)
[2022-05-18] MEDS: nicotine 21 mg Patch 1 PATCH TRANSDERMA (17:43)
[2022-05-18] MEDS: LORazepam 2 mg Tablet PO ×2 (19:25→22:31)
[2022-05-18] MEDS: ondansetron 4 MG Tablet PO ×2 (19:25→22:34)
[2022-05-18 20:35] LABS: Amphetamines Screen Urine Negative (Negative); Barbiturates Screen Urine Negative (Negative); Benzodiazepines Screen Urine Negative (Negative); Cocaine Screen Urine Negative (Negative); Opiate Screen Urine Negative (Negative); PCP Screen Urine Negative (Negative); THC Screen Urine Positive (Negative)
[2022-05-18 21:00] LABS: Alcohol Level 131 mg/dL (0-10)
[2022-05-18 21:35] VITALS: PULSE 104; RESP 20; O2SAT 97
[2022-05-18 21:43] VITALS: BP 112/75; PULSE 118; RESP 18; TEMP 37; O2SAT 98
--- NOTE | 2022-05-18 22:31 | PC.NURSE ---
pt scored 11 on CIWA scale, Ativan 2mg po given along with zofran 4mg po for nausea. will rescore in about a hour.
--- NOTE | 2022-05-18 23:12 | PHA.FALL ---
A Pharmacy Consult Was Conducted For Pool Dubose Due To: Hamilton Fall Scale Risk Level: High Fall Risk On 05/18/22 21:48 And A Medication Fall Risk Score Greater Than 10. The Recommendations Are As Follows:The use of Haloperidol, Olanzapine, and Lorzepam alone, and especially in combination give a high DATE NIGHT CAREGIVER medication burden significantly increasing the risk of falls. Goal is to reduce the daily dose and/or stop the DATE NIGHT CAREGIVER medications.
[2022-05-19 06:00] VITALS: BP 132/89; PULSE 129; RESP 16; TEMP 37; O2SAT 93
[2022-05-19] MEDS: LORazepam 2 mg Tablet PO ×6 (06:48→20:51)
--- NOTE | 2022-05-19 08:13 | PC.NURSE ---
IN BED RESTING. VISIBLY SHAKING AND HAVING TREMORS, UNABLE TO HOLD HIS DRINK WHEN TRYING TO DRINK. CIWA COMPLETED AND PT SCORES 18. MED NURSE TO ADMINISTER ATIVAN, ZOFRAN AND TYLENOL DUE TO ALCOHOL WITHDRAWL. PT DENIES SI/HI AND AVH AT THIS TIME. 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 PT DESIRES TO STAY IN BED AND DECLINES BREAKFASTS THIS AM DUE TO NAUSEA AND HEADACHE. WILL CONTINUE TO MONITOR AND TREAT WITHDRAWL SYMPTOMS. ALL QUESTIONS ANSWERED AND SUPPORT VOICED.
[2022-05-19] MEDS: thiamine 100 mg Tablet PO (08:32)
[2022-05-19] MEDS: folic acid 1 mg Tablet PO (08:32)
[2022-05-19] MEDS: ondansetron 4 MG Tablet PO ×3 (08:32→21:41)
[2022-05-19] MEDS: multivitamin therapeutic Tablet 1 TAB PO (08:32)
[2022-05-19] MEDS: acetaminophen 325 mg Tablet 650 MG PO ×2 (08:32→16:01)
[2022-05-19] MEDS: nicotine 21 mg Patch 1 PATCH TRANSDERMA (09:14)
--- NOTE | 2022-05-19 09:22 | P.NPUHP_ITS ---
Providers/Chief Complaint Admitting Physician: Ronnie Calvillo MD Chief Complaint: Alcohol use, depression HPI NPU History of Present Illness Pool Dubose is a 41 year old male admitted to the MPU voluntarily after the patient reports that he got drunk. According to affidavits of support, the patient's family had reported that Pool needs help with his alcohol as he had been drinking nonstop and engages in unusual behaviors when he is drinking including head-banging and cutting into his arms and legs. The patient's girlfriend had complained on the affidavit that Pool has been screaming and y elling at everyone and he had come out of his mobile home completely naked in the presence of his children and his grandchildren. The patient reports that he has been drinking approximately half a gallon of alcohol for years. He reports a history of blackouts and shakes. He reports that he has a 10-year history of alcohol use. He reports that he is not depressed and has no thoughts of hurting himself or others. He denied any history of edi. He did report an increase in alcohol use after he had left retirement approximately 4 years ago. He reports the longest period of time without his use of alcohol having been 2 to 3 days. He reports that he last had imbibed alcohol 2 days ago. He endorses no feelings of hopelessness or worthlessness. He denies any auditory or visual hallucinations in the present or the past. He reports that recently in the last 2 months he had received word of secondary consequences of his alcohol use including having been diagnosed with pancreatitis with hospitalization necessary in [facility]. Past Psychiatric History:reports 1x visit at [facility] [place] with Dr. Butts, reports past hx of being on celexa, reports past history of attempting to cut his throat with a knife, no prior inpatient treatment Past Psychiatric History: He denies past admissions, denies suicide attempts, said he did do an episode of self-harm in which he cut his throat with a pocket and cry for help as he calls it.? He says he is been treated on Celexa for 5 years now but he has been on other meds including trazodone and Seroquel times Family History: Mother and father were both alcohol and drug users and his mother committed suicide Past Medical History: 1) amputated leg, 2) hx of recent alcohol pancreatitis, Surgeries: amputation, Allergies: nkda Medications: none Substance Use History: Alcohol and marijuana: Started around age [age] years old said he uses 1/2 gallon vodka on daily basis with history of withdrawals, blackouts and shakes but denies hallucinosis. These are both drugs of choice for him and continue to be issues but less so at the moment given his restricted living environment. Per previous record: he used cocaine heavily for a few years in his early 20s and it sounds like he used other things as well including prescription pills and so on but he denies any of these were consistent use.? He denies cigarette smoking at this time saying that he has not picked it up again since he got out of retirement this last time ? Social History: Born in [facility], he currently lives with his girlfriend. He was from the age of 17 until the age of 19. He has 3 children 27 1916 years old all who do not live with him he reports that he dropped out of high school in the 12th grade and earned a GED. He reports that he had previously worked prior to the accident that led to his leg loss. He reports working in [place]. He currently owns a home and is on disability. Legal Hx: reports spending 2 years, 9 months in [facility] for assault of police detention attendant, and was released in 2018. Meds NPU Home Medications Medication Instructions Recorded Confirmed Last Taken Type multivitamin with minerals (Men's 1 tab PO DAILY 05/18/22 05/18/22 Unknown History One Daily) Allergies Allergy/AdvReac Type Severity Reaction Status Date / Time No Known Allergies Allergy Verified 05/18/22 14:33 PFSH NPU PFSH: Medical History (Updated 05/19/22 @ 11:15 by Ronnie Calvillo MD) Medical cannabis use HAS A CURRENT MEDICAL CARD S/p tibial fracture TIBIA / FIBULA FX REPAIR Family History Denies family history of Anesthesia complication Bleeding disorder Social History Smoking and tobacco status: former smoker Quit status (tobacco): has quit using tobacco Year quit tobacco: 2017 Former quit date comment: 1 PPD for 15 years Second hand smoke exposure: No Alcohol intake: current Alcohol intake frequency: few times a month Alcohol type: beer Lives independently: Yes History of recent travel: No Mental Status Exam MSE Comments: He was lying in bed appeared somewhat tired with a bucket next to his bed containing saliva and other excretions that he had vomited. He appeared much older than his stated age his hygiene was poor his gait was not tested. His mood was described as okay his affect was restricted in range. He did not appear to be responding to internal stimuli. His attention was variable. His insight is poor his judgment is poor. There is no evidence of any delusional thinking. He minimized the reasons for his hospitalization and minimized his alcohol use. His memory registration was intact 3 out of 3 with 1 out of 3 words recalled after 5 minutes. Vitals/I&O/Wt Last Vital Signs Temp 98.6 F 05/19/22 06:00 Pulse 129 H 05/19/22 06:00 Resp 16 05/19/22 06:00 BP 132/89 05/19/22 06:00 Pulse Ox 93 05/19/22 06:00 Weight last 48 hrs Weight 68.039 kg Data NPU : 05/18/22 14:20 05/18/22 14:20 A&P Assessment and plan (1) Alcohol use disorder, severe, in controlled environment, dependence: Status: Acute (2) Depressive disorder: Status: Acute Plan The patient is a 41-year-old white male with significant alcohol dependence and marijuana abuse admitted after imbibing a significant quantity of alcohol and having engaged in inappropriate behavior in his own home leading to concerns from family regarding his ability to care for himself. 1. Patient to remain on CIWA-already having required Prn ativan today 2. Engage in individual/milieu therapy 3. Engage patient to consider rehabilitation placement. Involuntary Hold Information 96 Hour Hold: 96 Hour Involuntary Admission: No Attestations NPU Medical Necessity Statement*: The patient will continue to require psychiatric hospitalization with the patient to reside greater than 2 midnights. The likely length of stay is 2 to 4 days with patient to be monitored for acute alcohol withdrawal symptoms. 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
--- NOTE | 2022-05-19 09:55 | PC.PT ---
OT Rola saw patient today, who uses crutches at baseline. He says that he is not interested in learning how to ambulate with a walker and would like to continue with just transferring to the w/c and using that for mobility while in NPU. OT spoke with nurse who agreed to defer PT evaluation. Waiting for discharge orders.
[2022-05-19 14:00] VITALS: BP 126/81; PULSE 132; RESP 18; O2SAT 92
--- NOTE | 2022-05-19 15:59 | PC.NURSE ---
PT REASSESSED ON CIWA, SCORED 13. TREMORS ARE MODERATED TO SEVERE, PERSPIRING, HEADACHE, AND MODERATE ANXIETY WITH NAUSEA. MED NURSE TO ADMINISTER ATIVAN ORDERED PER CIWA PROTOCOL.
--- NOTE | 2022-05-19 18:54 | PC.NURSE ---
Administered PO 2mg Ativan for detox symptoms. 0841, 1436, 1603, 1835.
--- NOTE | 2022-05-19 18:58 | PC.NURSE ---
Dr. tannreed Pt to wear a long sleeve shirt under his scrub shirt. Pt stated that he was freezing.
[2022-05-19 20:54] VITALS: BP 110/77; PULSE 117; RESP 18; TEMP 37; O2SAT 93
--- NOTE | 2022-05-19 21:43 | PC.NURSE ---
Prn med Patient given Zofran 4 mg po for nausea.Will continue to monitor.
[2022-05-19] MEDS: trazodone 50 mg Tablet PO (22:42)
[2022-05-19] MEDS: OLANZapine 5 mg ODT PO (22:42)
--- NOTE | 2022-05-19 23:31 | NUR.SHIFT ---
UPON EARLIER ASSESSMENT, PT CALM AND COOPERATIVE. A&OX4. SLIGHTLY TREMULOUS. CIWA 12 AND ATIVAN ADMINISTERED. RHONCHI AND CRACKLES IN BILATERAL LUNG BASES. PT REPORTS ANXIETY 03/09. APPX 2300, PT AWOKE WITH NAUSEA AND FOAMY EMESIS. ASSISTED TO RESTROOM. ZYPREXA ZYDIS GIVEN FOR SYMPTOM RELIEF WITH TRAZADONE FOR SLEEP WITH GOOD EFFECT. PT CURRENTLY RESTING WITH EYES CLOSED.
[2022-05-20 06:00] VITALS: BP 111/79; PULSE 112; RESP 17; TEMP 36.8; O2SAT 95
[2022-05-20] MEDS: ondansetron 4 MG Tablet PO (08:48)
[2022-05-20] MEDS: LORazepam 2 mg Tablet PO ×2 (08:48→15:44)
[2022-05-20] MEDS: folic acid 1 mg Tablet PO (08:49)
[2022-05-20] MEDS: multivitamin therapeutic Tablet 1 TAB PO (08:49)
[2022-05-20] MEDS: acetaminophen 325 mg Tablet 650 MG PO ×2 (08:49→14:54)
[2022-05-20] MEDS: thiamine 100 mg Tablet PO (08:49)
--- NOTE | 2022-05-20 10:18 | W.PM.NPUPNS ---
Subjective NPU Subjective: Patient is 41 year old white male with alcohol dependence admitted with depressed mood and continued discord and odd behavior when patient was drunk and naked in the presence of girlfriend and young children. He continues to minimize his alcohol use, and reports that he does not wish to consider inpatient treatment for alcohol abuse but would consider outpatient substance abuse. Patient's girlfriend reports that she feels that patient would benefit from intense treatment. Patient has history of alcohol pancreatitis within this year. He has continued to withdraw from alcohol use requiring Ativan on CIWA protocol. Mental Status Exam MSE Comments: He was sitting on his bed, signficant tremor in hand noted, older than stated age, poor hygiene, Mood: fine Affect: superficial and mood congruent. He appeared much older than his stated age his hygiene was poor his gait was not tested.? ? He did not appear to be responding to internal stimuli.? His attention was variable.? His insight is feeble and his judgment remained poor. There is no evidence of any delusional thinking.? He minimized the reasons for his hospitalization and minimized his alcohol use.? Vitals/I&O/Wt Last Vital Signs Temp 98.8 F 05/20/22 14:00 Pulse 98 05/20/22 14:00 Resp 20 H 05/20/22 14:00 BP 147/95 05/20/22 14:00 Pulse Ox 93 05/20/22 14:00 Weight last 48 hrs Weight 68.039 kg Data NPU : 05/18/22 14:20 05/18/22 14:20 A&P Assessment and plan (1) Depressive disorder: Status: Acute (2) Psychosis: Status: Acute (3) Alcohol use disorder, severe, in controlled environment, dependence: Status: Acute Plan The patient is a 41-year-old white male with significant alcohol dependence and marijuana abuse admitted after imbibing a significant quantity of alcohol and having engaged in inappropriate behavior in his own home leading to concerns from family regarding his ability to care for himself. 1. Patient to remain on CIWA-already having required Prn ativan again today. 2.? Engage in individual/milieu therapy 3.? Engage patient to consider rehabilitation placement, consider family meeting. Involuntary Hold Information 96 Hour Hold: 96 Hour Involuntary Admission: No Attestations NPU Medical Necessity Statement*: The patient will continue to require psychiatric hospitalization.? The likely length of stay is 2 to 4 days with patient to continue to be monitored for acute alcohol withdrawal symptoms.? 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
--- NOTE | 2022-05-20 11:38 | PC.NURSE ---
PRN MEDS THIS AM PT WAS SCORED ON CIWA AND SCORED 16, ATIVAN WAS GIVEN. PT CONTINUES TO STATE HE IS NAUSEATED, HAS HEADACHE, VISIBLE TREMORS AND ANXIETY. ATIVAN WAS GIVEN PER CIWA PROTOCOL. ZOFRAN AND TYLENOL GIVEN ORDERED. WILL CONTINUE TO MONITOR.
--- NOTE | 2022-05-20 11:40 | PC.NURSE ---
CIWA WAS RESCORED AND PT SCORED ZERO. PT IS RESTING IN BED WITH EYES CLOSED COMFORTABLY.
[2022-05-20] MEDS: nicotine 21 mg Patch 1 PATCH TRANSDERMA (12:04)
[2022-05-20 14:00] VITALS: BP 147/95; PULSE 98; RESP 20; TEMP 37.1; O2SAT 93
--- NOTE | 2022-05-20 14:58 | PC.NURSE ---
PRN MEDS C/O HEADACHE TYLENOL 650 MG GIVEN ORDERED. RATES PAIN 6/10
[2022-05-20] MEDS: ibuprofen 800 mg tablet PO (17:54)
[2022-05-20] MEDS: hyDROXYzine 25 mg Capsule 50 MG PO (17:54)
[2022-05-20] MEDS: OLANZapine 5 mg ODT PO ×2 (17:54→22:07)
[2022-05-20 19:57] VITALS: BP 114/78; PULSE 115; RESP 17; O2SAT 96
[2022-05-20] MEDS: trazodone 50 mg Tablet PO (20:39)
[2022-05-20] MEDS: haloperidol 5 mg Tablet PO (21:08)
[2022-05-21] MEDS: acetaminophen 325 mg Tablet 650 MG PO (04:14)
[2022-05-21] MEDS: LORazepam 2 mg Tablet PO (04:17)
[2022-05-21 06:00] VITALS: RESP 18
--- NOTE | 2022-05-21 11:46 | DCPLANNER ---
IMM completed with pt on 05/21/22 @ 11:43am. Pt was given a copy of rights and he stated he understood rights.
[2022-05-21] MEDS: nicotine 2 mg Gum BUCCAL (12:20)
[2022-05-21] MEDS: thiamine 100 mg Tablet PO (12:20)
[2022-05-21] MEDS: folic acid 1 mg Tablet PO (12:20)
[2022-05-21] MEDS: multivitamin therapeutic Tablet 1 TAB PO (12:20)
[2022-05-21 14:44] VITALS: RESP 18
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
== END 2022-05-21 15:07 | disposition home or self-care (01) | DRG 897 ==
LOC: ER 15:28 → NP 23:25
PROVIDERS: Admitting Provider Psychiatry & Neurology Psychiatry; Emergency Provider Emergency Medicine; Visit Provider Psychiatry & Neurology Psychiatry
DX: F10.229 Alcohol dependence with intoxication, unspecified (principal); F10.239 Alcohol dependence with withdrawal, unspecified; Y90.8 Blood alcohol level of 240 mg/100 ml or more; Z81.1 Family history of alcohol abuse and dependence; Z81.8 Family history of other mental and behavioral disorders; Z87.891 Personal history of nicotine dependence; F32.A Depression, unspecified; Z89.619 Acquired absence of unspecified leg above knee
CPT/HCPCS: 80053; 80306; 80307; 83690; 85025; 97150; 97165; 99285; Q0162

== ENCOUNTER → 2022-05-22 18:03 | Outpatient (BNVA) | payer MEDICARE, MEDICAID, SELFPAY | PROVIDERS: Visit Provider Registered Nurse Neonatal Intensive Care | DX: S89.91XA Unspecified injury of right lower leg, initial encounter (principal); W08.XXXA Fall from other furniture, initial encounter; M25.461 Effusion, right knee | CPT/HCPCS: 73562 ==

== ENCOUNTER 2022-05-29 21:36 | Inpatient (IN) | payer MEDICARE, MEDICAID, SELFPAY ==
[2022-05-29 21:50] VITALS: BP 116/69; PULSE 96; RESP 18; TEMP 37.1; O2SAT 99; BMI 18.4
[2022-05-29 23:13] LABS: Basophils # 0.1 10^3/uL (0.0-0.1); Basophils % 2.2 %; Eosinophils # 0.1 10^3/uL (0.0-0.8); Eosinophils % 1.6 %; Hematocrit 36.7 % (42.0-52.0); Lymphocytes # 2.3 10^3/uL (0.8-4.8); Lymphocytes % 36.3 %; Mean Corpuscular HGB Conc 32.7 g/dL (30.0-36.0); Mean Corpuscular Hemoglobin 30.9 pg (28.0-34.0); Mean Corpuscular Volume 94.6 fl (80-94); Mean Platelet Volume 8.6 fL (7.4-10.4); Monocytes # 0.5 10^3/uL (0.2-0.9); Monocytes % 7.8 %; Neutrophils # 3.32 10^3/uL (1.8-7.7); Neutrophils % 51.6 %; Nucleated Red Blood Cells % 0 %; Platelet Count 510 10^3/cmm (130-400); Red Blood Count 3.88 10^6/uL (4.1-5.3); Red Cell Distribution Width 20.5 % (12.1-15.1); White Blood Count 6.4 10^3/uL (4.0-10.0)
[2022-05-29 23:23] LABS: Add Urine Microscopic? NO; Charge for UA Resulting for Rev
[2022-05-29 23:33] LABS: Bilirubin Urine Neg (Negative); Blood Urine Neg (Negative); Glucose Urine UA Norm (Normal); Ketones Urine 1+ (Negative); Leukocyte Esterase Urine Negative (Negative); Nitrate Urine Negative (Negative); Protein Urine Neg (Negative); Urine Appearance Clear (CLEAR); Urine Color Yellow (Yellow); Urobilinogen Urine Neg (Negative); pH Urine 6 (5-7)
[2022-05-29 23:44] LABS: Alanine Aminotransferase 83 U/L (0-41); Albumin Level 3.8 g/dL (3.5-5.2); Alcohol Level 273 mg/dL (0-10); Alkaline Phosphatase 87 IU/L (40-130); Anion Gap 17.3 (5-19); Aspartate Amino Transferase 79 U/L (0-40); Blood Urea Nitrogen 7 mg/dL (6-20); Calcium 8.7 mg/dL (8.5-10.5); Carbon Dioxide 26 mmol/L (22-29); Chloride 107 mmol/L (98-107); Globulin 2.7 g/dL (1.3-4.6); Glomerular Filtration Rate 181.5 mL/min (90-130); Glucose 97 mg/dL (65-115); Osmolality Calculated 302 mOsm/kg (285-295); Potassium 3.3 mmol/L (3.5-5.1); Salicylate 0.7 mg/dL (3-10); Sodium 147 mmol/L (136-145); Total Bilirubin 0.2 mg/dL (0.15-1.2); Total Protein 6.5 g/dL (6.6-8.7)
[2022-05-29 23:44] LABS: Amphetamines Screen Urine Negative (Negative); Barbiturates Screen Urine Negative (Negative); Benzodiazepines Screen Urine Negative (Negative); Cocaine Screen Urine Negative (Negative); Opiate Screen Urine Negative (Negative); PCP Screen Urine Negative (Negative); THC Screen Urine Positive (Negative)
[2022-05-29 23:49] LABS: Acetaminophen < 5.0 ug/mL (10-30)
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
[2022-05-30 01:42] VITALS: BP 114/65; PULSE 100; RESP 18; TEMP 36.9; O2SAT 97
[2022-05-30 01:54] VITALS: BMI 18.4
--- NOTE | 2022-05-30 02:39 | PC.NURSE ---
No tattoos below the waist. Tattoos to arms, chest, and, left upper back
--- NOTE | 2022-05-30 03:07 | PC.NURSE ---
ADMISSION NOTE: Arrived to NPU at 0130 via w/c, staff escort. 96hr hold documents placed in chart. Flat affect. Conversation oriented to place and reason for admission. ?I was drinkin, scratched my neck to piss off my girlfriend.? Pt given a wheelchair due to R BKA. NKA. Very poor historian. Strong odor of ETOH. ETOH was 273 at 2305, UDS (+) for THC. H&H are lowered. Uses w/c well without assist. Denies current medications. State he was discharged from this unit ?just last week.? On arrival denies SI/HI/AVH. Contracts for safety, Oriented to unit.
[2022-05-30] MEDS: multivitamin therapeutic Tablet 1 TAB PO (09:50)
[2022-05-30] MEDS: folic acid 1 mg Tablet PO (09:50)
[2022-05-30] MEDS: thiamine 100 mg Tablet PO (09:50)
[2022-05-30] MEDS: hyDROXYzine 25 mg Capsule 50 MG PO (11:36)
[2022-05-30] MEDS: LORazepam 2 mg Tablet PO ×2 (11:36→22:42)
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
[2022-05-30 14:00] VITALS: BP 109/73; PULSE 87; RESP 17; TEMP 36.6; O2SAT 100
[2022-05-30] MEDS: nicotine 21 mg Patch 1 PATCH TRANSDERMA (19:16)
[2022-05-30 20:42] VITALS: RESP 18
[2022-05-30] MEDS: trazodone 50 mg Tablet PO (21:02)
[2022-05-30] MEDS: OLANZapine 5 mg ODT PO (21:02)
[2022-05-30] MEDS: acetaminophen 325 mg Tablet 650 MG PO (22:42)
[2022-05-31] MEDS: trazodone 50 mg Tablet PO ×3 (00:01→23:04)
[2022-05-31 06:00] VITALS: BP 96/60; PULSE 85; RESP 18; TEMP 36.8; O2SAT 97
[2022-05-31] MEDS: folic acid 1 mg Tablet PO (09:31)
[2022-05-31] MEDS: multivitamin therapeutic Tablet 1 TAB PO (09:32)
[2022-05-31] MEDS: thiamine 100 mg Tablet PO (09:32)
[2022-05-31] MEDS: LORazepam 2 mg Tablet PO ×2 (10:02→23:00)
--- NOTE | 2022-05-31 11:21 | W.PM.NPUPNS ---
Subjective NPU Subjective: Patient is 41 year old white male with alcohol dependence admitted involuntarily after endorsing suicidal ideation. Patient continues to lie in bed stating he is doing fine and needs to go home. Patient on CIWA scale and received ativan last night. He reports no homicidal thoughts or suicidal thoughts. Patient continues to minimize the significant alcohol consumption leading to loss of limb, alcoholic pancreatitis. Patient reports that this hospitalization was a misunderstanding. Mental Status Exam MSE Comments: He was lying in bed with his wheelchair nearby who appeared older than his stated age. He had poor hygiene, his gait was not tested as he had a right leg amputation. Mood: okay Affect: superficial, restricted range ? He did not appear to be responding to internal stimuli.? His attention was variable.? His insight regarding his hospitalization was feeble. and his judgment was poor. He was alert and oriented to person, place and time. ? There is no evidence of any delusional thinking.? He minimized the reasons for his hospitalization and minimized his alcohol use. His impulse control was poor. ? Vitals/I&O/Wt Last Vital Signs Temp 97.6 F 05/31/22 20:33 Pulse 96 05/31/22 20:33 Resp 16 05/31/22 20:33 BP 108/73 05/31/22 20:33 Pulse Ox 96 05/31/22 20:33 O2 Del Method 05/31/22 13:22 Weight last 48 hrs Weight 56.699 kg Data NPU : 05/29/22 23:05 05/29/22 23:05 A&P Assessment and plan (1) Impulse control disorder, unspecified: Status: Acute (2) Alcohol dependence with acute alcoholic intoxication: Status: Acute (3) Suicidal ideation: Status: Acute Plan 1) 15 minute therapeutic observation 2) Alcohol withdrawal protocol. -CIWA 3) gather supportive and collateral information. 4) consider naltrexone Involuntary Hold Information 96 Hour Hold: 96 Hour Involuntary Admission: Yes 96 Hour Hold Ending Date: 06/04/22 96 Hour Hold Ending Time: 01:30 Attestations NPU Medical Necessity Statement*: The patient will likely require continued psychiatric hospitalization to assess safety with likely length of stay at NPU is 1-2 days. 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
[2022-05-31 13:22] VITALS: BP 93/72; PULSE 94; RESP 17; TEMP 36.6; O2SAT 95
[2022-05-31] MEDS: nicotine 21 mg Patch 1 PATCH TRANSDERMA (13:48)
[2022-05-31 20:33] VITALS: BP 108/73; PULSE 96; RESP 16; TEMP 36.4; O2SAT 96
[2022-05-31] MEDS: acetaminophen 325 mg Tablet 650 MG PO (21:15)
[2022-05-31] MEDS: OLANZapine 5 mg ODT PO (21:16)
[2022-06-01 06:00] VITALS: BP 117/78; PULSE 79; RESP 19; TEMP 36.6; O2SAT 99
[2022-06-01] MEDS: nicotine 2 mg Gum BUCCAL (06:48)
[2022-06-01] MEDS: folic acid 1 mg Tablet PO (10:10)
[2022-06-01] MEDS: thiamine 100 mg Tablet PO (10:10)
[2022-06-01] MEDS: LORazepam 2 mg Tablet PO (11:46)
[2022-06-01] MEDS: nicotine 21 mg Patch 1 PATCH TRANSDERMA (11:46)
[2022-06-01 14:00] VITALS: BP 128/87; PULSE 93; RESP 16; TEMP 36.6; O2SAT 98
--- NOTE | 2022-06-01 16:32 | DCPLANNER ---
IMM given to pt and rights explained.
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
[2022-06-01 17:52] VITALS: BP 128/87; PULSE 93; RESP 16; TEMP 36.6; O2SAT 98
== END 2022-06-01 18:10 | disposition home or self-care (01) | DRG 886 ==
LOC: ER 05-30 00:23 → NP 05-30 01:08
PROVIDERS: Admitting Provider Psychiatry & Neurology Psychiatry; Emergency Provider Emergency Medicine; PCP Family Medicine Adult Medicine; Visit Provider Psychiatry & Neurology Psychiatry
DX: F63.9 Impulse disorder, unspecified (principal); R45.851 Suicidal ideations; F10.239 Alcohol dependence with withdrawal, unspecified; F10.229 Alcohol dependence with intoxication, unspecified; S10.91XA Abrasion of unspecified part of neck, initial encounter; X83.8XXA Intentional self-harm by other specified means, initial encounter; Y90.8 Blood alcohol level of 240 mg/100 ml or more; Z89.511 Acquired absence of right leg below knee
CPT/HCPCS: 36415; 80053; 80306; 80307; 81003; 85025; 97150; 97165; 99285

== ENCOUNTER 2022-12-03 20:55 | Emergency (ER) | payer MEDICARE, MEDICAID, SELFPAY ==
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
[2022-12-03 21:32] LABS: Basophils # 0.2 10^3/uL (0.0-0.1); Basophils % 2.1 %; Eosinophils # 0.1 10^3/uL (0.0-0.8); Eosinophils % 0.8 %; Hemoglobin 14.9 g/dL (11.7-16.6); Lymphocytes # 3.2 10^3/uL (0.8-4.8); Lymphocytes % 35.9 %; Mean Corpuscular HGB Conc 32.4 g/dL (30.0-36.0); Mean Corpuscular Hemoglobin 31.3 pg (28.0-34.0); Mean Corpuscular Volume 96.6 fl (80-94); Mean Platelet Volume 9.4 fL (7.4-10.4); Monocytes # 0.7 10^3/uL (0.2-0.9); Monocytes % 7.7 %; Neutrophils # 4.68 10^3/uL (1.8-7.7); Neutrophils % 52.9 %; Nucleated Red Blood Cells % 0 %; Platelet Count 388 10^3/cmm (130-400); Red Blood Count 4.76 10^6/uL (4.1-5.3); Red Cell Distribution Width 15.5 % (12.1-15.1); White Blood Count 8.8 10^3/uL (4.0-10.0)
[2022-12-03 21:47] LABS: Alanine Aminotransferase 48 U/L (0-41); Albumin Level 4.3 g/dL (3.5-5.2); Alkaline Phosphatase 90 U/L (40-130); Anion Gap 17.3 (5-19); Aspartate Amino Transferase 33 U/L (0-40); Blood Urea Nitrogen 6 mg/dL (6-20); Calcium 9.1 mg/dL (8.5-10.5); Carbon Dioxide 29 mmol/L (22-29); Chloride 106 mmol/L (98-107); Glomerular Filtration Rate 146.4 mL/min (90-130); Glucose 90 mg/dL (65-115); Osmolality Calculated 305 mOsm/kg (285-295); Potassium 3.3 mmol/L (3.5-5.1); Sodium 149 mmol/L (136-145); Total Bilirubin 0.2 mg/dL (0.15-1.2); Total Protein 7.3 g/dL (6.6-8.7)
[2022-12-03 21:50] LABS: Acetaminophen < 5.0 ug/mL (10-30); Salicylate < 0.3 mg/dL (3-10)
[2022-12-03 21:51] LABS: Alcohol Level 342 mg/dL (0-10)
== END 2022-12-03 22:00 | disposition home or self-care (01) ==
PROVIDERS: Emergency Provider Emergency Medicine; PCP Family Medicine Adult Medicine
DX: F10.229 Alcohol dependence with intoxication, unspecified (principal); Y90.8 Blood alcohol level of 240 mg/100 ml or more; F17.210 Nicotine dependence, cigarettes, uncomplicated
CPT/HCPCS: 80053; 80307; 85025; 99283

== ENCOUNTER 2022-12-15 10:03 | Inpatient (IN) | payer MEDICARE, MEDICAID, SELFPAY ==
[2022-12-15] VITALS (55 sets, daily range): BP systolic 101–169; BP diastolic 62–111; PULSE 95–145; RESP 15–29; TEMP 37.1–37.8; O2SAT 88–99; BMI 17.9
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
[2022-12-15] MEDS: acetaminophen 500 mg Tablet 1000 MG PO (10:25)
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
[2022-12-15] MEDS: ondansetron 2 mg/ML SDV 2 mL 4 MG IVP (10:42)
[2022-12-15] MEDS: LORazepam 2 mg/mL INJ 1 mL IVP ×3 (10:42→22:21)
[2022-12-15] MEDS: sodium chloride 0.9% 1,000 ML 999 ML IV (10:43)
[2022-12-15 10:45] LABS: Basophils # 0.1 10^3/uL (0.0-0.1); Basophils % 0.7 %; Eosinophils # 0.4 10^3/uL (0.0-0.8); Eosinophils % 3.9 %; Hematocrit 37.9 % (42.0-52.0); Hemoglobin 13.3 g/dL (11.7-16.6); Lymphocytes # 0.9 10^3/uL (0.8-4.8); Mean Corpuscular HGB Conc 35.1 g/dL (30.0-36.0); Mean Corpuscular Hemoglobin 32.4 pg (28.0-34.0); Mean Corpuscular Volume 92.4 fl (80-94); Mean Platelet Volume 9.2 fL (7.4-10.4); Monocytes # 1.3 10^3/uL (0.2-0.9); Monocytes % 12.7 %; Neutrophils # 7.35 10^3/uL (1.8-7.7); Nucleated Red Blood Cells % 0 %; Platelet Count 205 10^3/cmm (130-400); Red Cell Distribution Width 15.1 % (12.1-15.1); White Blood Count 10.1 10^3/uL (4.0-10.0)
[2022-12-15 11:03] LABS: Alanine Aminotransferase 38 U/L (0-41); Albumin Level 3.9 g/dL (3.5-5.2); Alcohol Level 111 mg/dL (0-10); Alkaline Phosphatase 102 U/L (40-130); Anion Gap 23.6 (5-19); Aspartate Amino Transferase 49 U/L (0-40); Blood Urea Nitrogen 7 mg/dL (6-20); Calcium 8.7 mg/dL (8.5-10.5); Carbon Dioxide 26 mmol/L (22-29); Chloride 87 mmol/L (98-107); Globulin 2.9 g/dL (1.3-4.6); Glomerular Filtration Rate 122.5 mL/min (90-130); Glucose 194 mg/dL (65-115); Osmolality Calculated 281 mOsm/kg (285-295); Sodium 134 mmol/L (136-145); Total Bilirubin 0.4 mg/dL (0.15-1.2); Total Protein 6.8 g/dL (6.6-8.7)
[2022-12-15 11:04] LABS: Acetaminophen < 5.0 ug/mL (10-30); Salicylate < 0.3 mg/dL (3-10)
[2022-12-15] MEDS: multivitamin therapeutic Tablet 1 TAB PO (11:04)
[2022-12-15 11:05] LABS: Potassium 2.6 mmol/L (3.5-5.1)
[2022-12-15] MEDS: potassium chloride ER 20 mEq Tablet 40 MEQ PO (11:20)
[2022-12-15] MEDS: potassium chloride premix 100 ML 50 MEQ IV (11:21)
[2022-12-15 11:32] LABS: Influenza A by IFA negative (Negative); Influenza B by IFA negative (Negative)
[2022-12-15 11:33] LABS: SARS Covid-2 Antigen negative (Negative)
[2022-12-15 11:45] LABS: Magnesium 1.4 mg/dL (1.7-2.3)
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
[2022-12-15] MEDS: folic acid 1 mg Tablet PO (12:50)
[2022-12-15] MEDS: thiamine 100 mg Tablet PO (12:50)
[2022-12-15 13:19] LABS: Thyroid Stimulating Hormone 1.39 uIU/mL (0.27-4.20)
[2022-12-15 13:20] LABS: Hepatitis A Antibody IgM Non-Reactive (Nonreactive); Hepatitis B Core IgM Non-Reactive (Nonreactive); Hepatitis B Surface Antigen Non-Reactive (Nonreactive); Hepatitis C Virus Antibody Non-Reactive (Nonreactive)
[2022-12-15 13:47] LABS: Amphetamines Screen Urine Negative (Negative); Barbiturates Screen Urine Negative (Negative); Benzodiazepines Screen Urine Positive (Negative); Cocaine Screen Urine Negative (Negative); Opiate Screen Urine Negative (Negative); PCP Screen Urine Negative (Negative); THC Screen Urine Positive (Negative)
[2022-12-15 14:12] LABS: Glucose Urine UA Norm (Normal); Ketones Urine 1+ (Negative); Protein Urine 1+ (Negative); Urine Appearance Hazy (CLEAR); Urine Color Dark Yellow (Yellow); pH Urine 6 (5-7)
[2022-12-15 14:13] LABS: Add Urine Microscopic? YES; Bilirubin Urine 1+ (Negative); Blood Urine 2+ (Negative); Leukocyte Esterase Urine Negative (Negative); Nitrate Urine Negative (Negative); RBC Urine 0-4 /hpf (0-2); Squamous Epithelial Cell Urine 0-4 /hpf (0-5); Urobilinogen Urine 1 mg/dL (Negative); WBC Urine 0-4 /hpf (0-5)
[2022-12-15 14:14] LABS: Add Urine Culture? No; Bacteria Urine TRACE /hpf; Hyaline Casts Urine RARE /lpf; Mucus Urine 2+ /hpf
[2022-12-15] MEDS: nicotine 21 mg Patch 1 PATCH TRANSDERMA (15:17)
[2022-12-15] MEDS: pantoprazole 40 mg SDV IVP (15:18)
[2022-12-15] MEDS: enoxaparin 40 mg/0.4 mL Syringe SUBCUT (15:18)
[2022-12-15] MEDS: D5-NS 0.45% + KCL 20 mEq 20 MEQ/1,000 ML BAG 150 MEQ IV (15:20)
[2022-12-15] MEDS: magnesium sulfate premix 2 GM/50 ML PIGGYBACK IV (15:56)
[2022-12-15] MEDS: acetaminophen 325 mg Tablet 650 MG PO (23:58)
[2022-12-16] VITALS (18 sets, daily range): BP systolic 96–130; BP diastolic 68–93; PULSE 88–124; RESP 16–35; TEMP 36.6–37; O2SAT 87–98
[2022-12-16 03:31] LABS: Basophils # 0.1 10^3/uL (0.0-0.1); Basophils % 0.4 %; Eosinophils % 0.1 %; Hematocrit 36.3 % (42.0-52.0); Hemoglobin 12.5 g/dL (11.7-16.6); Lymphocytes # 2.1 10^3/uL (0.8-4.8); Lymphocytes % 16.2 %; Mean Corpuscular HGB Conc 34.4 g/dL (30.0-36.0); Mean Corpuscular Hemoglobin 32.6 pg (28.0-34.0); Mean Corpuscular Volume 94.8 fl (80-94); Mean Platelet Volume 9.9 fL (7.4-10.4); Monocytes % 7.7 %; Neutrophils # 9.93 10^3/uL (1.8-7.7); Neutrophils % 75.1 %; Nucleated Red Blood Cells % 0 %; Platelet Count 172 10^3/cmm (130-400); Red Blood Count 3.83 10^6/uL (4.1-5.3); Red Cell Distribution Width 15.3 % (12.1-15.1); White Blood Count 13.2 10^3/uL (4.0-10.0)
[2022-12-16 03:53] LABS: Alanine Aminotransferase 26 U/L (0-41); Albumin Level 3.3 g/dL (3.5-5.2); Alkaline Phosphatase 83 U/L (40-130); Anion Gap 11.9 (5-19); Aspartate Amino Transferase 32 U/L (0-40); Blood Urea Nitrogen 3 mg/dL (6-20); Calcium 8.5 mg/dL (8.5-10.5); Carbon Dioxide 33 mmol/L (22-29); Chloride 95 mmol/L (98-107); Creatinine Clr Calc Pharmacy 151.1973; Globulin 2.7 g/dL (1.3-4.6); Glomerular Filtration Rate 180.6 mL/min (90-130); Glucose 97 mg/dL (65-115); Osmolality Calculated 280 mOsm/kg (285-295); Sodium 137 mmol/L (136-145); Total Bilirubin 0.6 mg/dL (0.15-1.2)
[2022-12-16] MEDS: pantoprazole 40 mg SDV IVP (04:22)
[2022-12-16] MEDS: D5-NS 0.45% + KCL 20 mEq 20 MEQ/1,000 ML BAG 150 MEQ IV ×2 (04:26→08:16)
[2022-12-16 04:41] LABS: Potassium 2.9 mmol/L (3.5-5.1)
[2022-12-16] MEDS: lidocaine 1% 5 ML in potassium chloride premix 100 ML 26.25 ML IV (05:47)
[2022-12-16] MEDS: thiamine 100 mg Tablet PO (08:14)
[2022-12-16] MEDS: potassium chloride ER 20 mEq Tablet 40 MEQ PO ×2 (08:14→14:34)
[2022-12-16] MEDS: multivitamin therapeutic Tablet 1 TAB PO (08:14)
[2022-12-16] MEDS: folic acid 1 mg Tablet PO (08:14)
[2022-12-16] MEDS: nicotine 21 mg Patch 1 PATCH TRANSDERMA (08:14)
--- NOTE | 2022-12-16 08:51 | P.PN_ITS ---
Subjective Subjective: Pool reports he would like something to eat. He still feels very shaky. Does not feel as nauseous. Concerned he is still going through significant withdrawal. Has not required IV Ativan since the emergency department visit. Medications: Reviewed: Yes Vitals/I&O/Wt Last Vital Signs Temp 98.2 F 12/16/22 00:00 Pulse 92 12/16/22 06:00 Resp 18 12/16/22 06:00 BP 130/82 12/16/22 06:00 Pulse Ox 92 12/16/22 06:00 O2 Del Method 12/15/22 13:35 12/15/22 12/16/22 12/16/22 22:59 06:59 14:59 Intake Total 1240 / 2340 575 / 575 Output Total 820 / 820 1040 / 1860 Balance 420 / 1520 -1040 / 480 575 / 575 Weight last 48 hrs Weight 59.285 kg Weight 56.699 kg Weight 56.699 kg Physical Exam Narrative: General exam no distress. He becomes more shaky as he is awake and. Neck supple Cardiovascular borderline tachycardia Lungs clear Abdomen is soft Extremities no cyanosis clubbing or edema Data 12/16/22 03:04 12/16/22 03:04 Micro: Microbiology 12/15/22 13:10 Blood Culture - Preliminary Blood SPECIMEN COLLECTED 12/15/22 13:06 Blood Culture - Preliminary Blood SPECIMEN COLLECTED A&P Assessment and plan (1) Alcohol withdrawal: Patient appears to have significant acute withdrawal. Continue CIWA protocol He is not requiring significant IV Ativan Consult psychiatry, he may be appropriate for continued withdrawal treatment down there so he can attend group session and other interventions Secondary to his alcohol intake, vomiting he could very well have alcoholic gastritis. Continue Protonix but change to p.o. Qualifiers: Complication of substance-induced condition: uncomplicated Qualified Code(s): F10.930 - Alcohol use, unspecified with withdrawal, uncomplicated (2) Hypokalemia: Patient has significant hypokalemia Supplement potassium again today Recheck potassium at noon Repeat laboratory tomorrow with CMP, CBC (3) Hypomagnesemia: Had significant hypomagnesemia which was supplemented and normal today Repeat magnesium level tomorrow (4) Elevated temperature: Patient with elevated temperature COVID, influenza negative. Urinalysis negative. Blood culture obtained and negative to date. No recurrent fevers. Likely secondary to withdrawal Chest x-ray showed no infiltrate (5) Transaminitis: This is likely secondary to his alcohol intake Hepatitis panel negative (6) Cannabis dependence, uncomplicated: This may contribute to intractable vomiting (7) Depression: Has significant depression but denies homicidal or suicidal ideation currently. Psychiatric evaluation TSH checked and normal Plan Tobacco dependency. Nicotine patch. Potential transfer to neuropsychiatric services this afternoon, after correction of potassium Attestations 2 Medical Necessity Statement*: Needs continued hospitalization for further treatment of alcohol withdrawal Diagnoses Alcohol withdrawal F10.930 Complication of substance-induced condition: uncomplicated Hypokalemia E87.6 Hypomagnesemia E83.42 Elevated temperature R50.9 Transaminitis R74.01 Cannabis dependence, uncomplicated F12.20 Depression F32.A
[2022-12-16] MEDS: pantoprazole DR 40 mg Tablet PO ×2 (09:16→18:19)
[2022-12-16] MEDS: enoxaparin 40 mg/0.4 mL Syringe SUBCUT (14:34)
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
[2022-12-16] MEDS: guaiFENesin 100 mg/5 mL UDC 10 mL 200 MG PO ×2 (16:46→21:17)
[2022-12-16] MEDS: neomycin-poly-bacitracin oint 28 gm 1 APPLIC TOPICAL (18:19)
--- NOTE | 2022-12-16 19:06 | PC.NURSE ---
Security has Pt's Marijuana in their safe. Security will need to be notified upon discharge of this pt to bring back his property to the unit.
[2022-12-16] MEDS: hyDROXYzine 25 mg Capsule 50 MG PO (21:14)
[2022-12-16] MEDS: ibuprofen 600 mg Tablet PO (21:16)
[2022-12-16] MEDS: trazodone 50 mg Tablet PO (21:16)
--- NOTE | 2022-12-16 21:50 | PC.NURSE ---
Patient given Robitussin 200mg PO for cough. Vistaril 50mg PO for anxiety, Trazadone 50mg PO for sleep and Motrin 600mg PO for back pain. All with good results.
[2022-12-17 08:39] LABS: Basophils # 0.1 10^3/uL (0.0-0.1); Basophils % 0.6 %; Eosinophils # 0.1 10^3/uL (0.0-0.8); Lymphocytes # 2.3 10^3/uL (0.8-4.8); Lymphocytes % 26.5 %; Mean Corpuscular HGB Conc 33.3 g/dL (30.0-36.0); Mean Corpuscular Hemoglobin 32.5 pg (28.0-34.0); Mean Corpuscular Volume 97.5 fl (80-94); Mean Platelet Volume 12.2 fL (7.4-10.4); Monocytes # 0.7 10^3/uL (0.2-0.9); Monocytes % 7.5 %; Neutrophils # 5.68 10^3/uL (1.8-7.7); Neutrophils % 64.2 %; Nucleated Red Blood Cells % 0 %; Platelet Count 250 10^3/cmm (130-400); Red Cell Distribution Width 15.2 % (12.1-15.1); White Blood Count 8.8 10^3/uL (4.0-10.0)
[2022-12-17 09:02] LABS: Albumin Level 3.3 g/dL (3.5-5.2); Alkaline Phosphatase 91 U/L (40-130); Blood Urea Nitrogen 6 mg/dL (6-20); Carbon Dioxide 26 mmol/L (22-29); Chloride 106 mmol/L (98-107); Glomerular Filtration Rate 180.6 mL/min (90-130); Glucose 85 mg/dL (65-115); Magnesium 1.9 mg/dL (1.7-2.3); Osmolality Calculated 289 mOsm/kg (285-295); Sodium 141 mmol/L (136-145); Total Bilirubin 0.6 mg/dL (0.15-1.2); Total Protein 6.3 g/dL (6.6-8.7)
[2022-12-17 09:04] LABS: Alanine Aminotransferase 22 U/L (0-41); Anion Gap 14.1 (5-19); Aspartate Amino Transferase 31 U/L (0-40); Potassium 5.1 mmol/L (3.5-5.1)
[2022-12-17] MEDS: folic acid 1 mg Tablet PO (10:18)
[2022-12-17] MEDS: multivitamin therapeutic Tablet 1 TAB PO (10:18)
[2022-12-17] MEDS: neomycin-poly-bacitracin oint 28 gm 1 APPLIC TOPICAL ×2 (10:18→18:09)
[2022-12-17] MEDS: thiamine 100 mg Tablet PO (10:19)
[2022-12-17] MEDS: acetaminophen 325 mg Tablet 650 MG PO ×3 (10:28→21:15)
[2022-12-17] MEDS: guaiFENesin 100 mg/5 mL UDC 10 mL 200 MG PO ×2 (13:13→21:18)
[2022-12-17] MEDS: nicotine 21 mg Patch 1 PATCH TRANSDERMA (13:28)
[2022-12-17 14:00] VITALS: BP 109/73; PULSE 82; RESP 18; TEMP 36.9; O2SAT 97
--- NOTE | 2022-12-17 15:51 | P.NPUPN_ITS ---
Subjective NPU Subjective: Patient is 42 year old white male with alcohol dependence admitted after having been in significant alcohol withdrawal and being placed in ICU. Patient continued to show evidence of mild alcohol withdrawal and had continued to remain in his room attempting to get rest. He had required as needed Ativan. He had reported no desire to receive treatment for alcohol dependence and stated that he did not believe that he would be prevented from returning home as he stated that his girlfriend would take him back. He had reported no interest in receiving outpatient or inpatient substance abuse treatment. He minimized having depressed mood and denied any suicidal thoughts. Mental Status Exam MSE Comments: He was lying in bed with his wheelchair nearby who appeared older than his stated age. His speech appeared to be slurred at times. He had a mild tremor noted billaterally. He had poor hygiene, his gait was not tested as he had a right leg amputation. Mood: horrible Affect: Restricted in range and mood congruent. ? Perception: he did not appear to be responding to internal stimuli.?There was no evidence of delusional thinking. His attention was fair. His insight is feeble and his judgment was poor. His impulse control is impaired. He was alert and oriented to person, place and time. ? He minimized the reasons for his hospitalization and minimized his alcohol use. He denies suicidal or homicidal ideation. Vitals/I&O/Wt Last Vital Signs Temp 98.6 F 12/16/22 20:33 Pulse 89 12/16/22 20:33 Resp 16 12/16/22 20:33 BP 108/71 12/16/22 20:33 Pulse Ox 95 12/16/22 20:33 O2 Del Method 12/16/22 20:33 O2 Flow Rate 2 12/17/22 08:00 Weight last 48 hrs Weight 59.285 kg Data NPU 12/17/22 08:19 12/17/22 08:19 Micro: Microbiology 12/15/22 13:10 Blood Culture - Preliminary Blood NEGATIVE TO DATE 12/15/22 13:06 Blood Culture - Preliminary Blood NEGATIVE TO DATE Microbiology 12/15/22 13:10 Blood Blood Culture - Preliminary NEGATIVE TO DATE 12/15/22 13:06 Blood Blood Culture - Preliminary NEGATIVE TO DATE A&P Assessment and plan (1) Impulse control disorder, unspecified: (2) Alcohol dependence with acute alcoholic intoxication: (3) Suicidal ideation: Plan 42-year-old white male with significant genetic loading for alcohol abuse who p resents again with alcohol dependence currently minimizing any mood symptoms but undergoing significant alcohol withdrawal symptoms currently. 1) Therapeutic observation 15 minute checks. 2) CIWA protocol engaged 3) initiate individual milieu and group therapy 4) Patient does not wish for any help at this time. Referral for alcohol abuse/dependence treatment remains unlikely to be attended by patient. Involuntary Hold Information 96 Hour Hold: 96 Hour Involuntary Admission: No 96 Hour Hold Ending Date: 06/04/22 96 Hour Hold Ending Time: 01:30 Attestations NPU Medical Necessity Statement*: The patient will continue to require psychiatric hospitalization with the patient to reside greater than 2 midnights. The likely length of stay is 2 to 4 days with patient to be monitored for acute alcohol withdrawal symptoms. Coding Level of Care Code Acute Code for [facility] Diagnoses Impulse control disorder, unspecified F63.9 Alcohol dependence with acute alcoholic intoxication F10.229 Suicidal ideation R45.851
[2022-12-17] MEDS: pantoprazole DR 40 mg Tablet PO (18:04)
--- NOTE | 2022-12-17 18:15 | PC.NURSE ---
Administered antibiotic ointment to scratch on patient's back. The rest of his abrasions have scabbed over now. Patient is still bruised in multiple spots on his legs, back, and arms. He states he is very uncomfortable and sore, especially when he tries to change positions in bed and in his wheelchair. Gave patient an extra pillow for comfort. Calm and cooperative. Patient has been very isolative today.
[2022-12-17] MEDS: LORazepam 2 mg Tablet PO (21:14)
[2022-12-17] MEDS: trazodone 50 mg Tablet PO (21:16)
[2022-12-17] MEDS: hyDROXYzine 25 mg Capsule 50 MG PO (21:17)
[2022-12-17 21:29] VITALS: BP 109/73; PULSE 92; RESP 17; TEMP 36.7; O2SAT 96
[2022-12-17] MEDS: OLANZapine 5 mg ODT PO (23:08)
[2022-12-18] MEDS: haloperidol 5 mg Tablet PO (01:17)
[2022-12-18 06:00] VITALS: BP 101/72; PULSE 99; RESP 16; TEMP 36.4; O2SAT 94
[2022-12-18] MEDS: guaiFENesin 100 mg/5 mL UDC 10 mL 200 MG PO ×2 (08:23→18:04)
[2022-12-18] MEDS: pantoprazole DR 40 mg Tablet PO ×2 (08:24→18:04)
[2022-12-18] MEDS: folic acid 1 mg Tablet PO (08:24)
[2022-12-18] MEDS: multivitamin therapeutic Tablet 1 TAB PO (08:24)
[2022-12-18] MEDS: thiamine 100 mg Tablet PO (08:24)
[2022-12-18] MEDS: acetaminophen 325 mg Tablet 650 MG PO ×2 (08:24→18:04)
[2022-12-18] MEDS: nicotine 21 mg Patch 1 PATCH TRANSDERMA (08:26)
[2022-12-18] MEDS: OLANZapine 5 mg ODT PO (08:31)
--- NOTE | 2022-12-18 10:40 | PC.NURSE ---
Patient administered zyprexa 10mg odt at 0831 due to his increasing anxiety due to his lack of sleep and worry about his back pain. He stated he tossed and turned all night and just wants to sleep so he isn't feeling so anxious.
[2022-12-18] MEDS: ibuprofen 600 mg Tablet PO ×2 (13:17→20:58)
[2022-12-18 14:00] VITALS: BP 92/61; PULSE 71; RESP 18; TEMP 36.7; O2SAT 99
--- NOTE | 2022-12-18 14:08 | W.PM.NPUPNS ---
Subjective NPU Subjective: Patient is 42 year old white male with alcohol dependence admitted after having been in significant alcohol withdrawal while minimizing mood symptoms. The patient described his mood is all right. He had been lying in bed with a mask over his eyes to try to get some rest. He had reported no thoughts of hurting himself. He had expressed no desire to receive treatment for his alcohol dependence either on an inpatient or outpatient basis. He currently appeared to be in minimal distress in regards to alcohol withdrawal and did not require any as needed Ativan to avoid alcohol withdrawal symptoms. He had endorsed a previous history of pancreatitis and other alcohol-related complications but continued to drink despite these adverse consequences. Mental Status Exam MSE Comments: He was lying in bed with his wheelchair nearby who appeared older than his stated age. His speech appeared to be slurred at times. He had no tremor noted today. He had poor hygiene, his gait was not tested as he had a right leg amputation. Mood was described as fine. Affect: Restricted in range and mood congruent. ? Perception: he did not appear to be responding to internal stimuli.?There was no evidence of delusional thinking. His attention was fair. His insight is feeble and his judgment was poor. His impulse control is impaired. He was alert and oriented to person, place and time. ? He minimized the reasons for his hospitalization and minimized his alcohol use. He denies suicidal or homicidal ideation. Vitals/I&O/Wt Last Vital Signs Temp 97.6 F 12/18/22 06:00 Pulse 99 12/18/22 06:00 Resp 16 12/18/22 06:00 BP 101/72 12/18/22 06:00 Pulse Ox 94 12/18/22 06:00 O2 Del Method 12/18/22 06:00 O2 Flow Rate 0 12/18/22 08:00 Data NPU 12/17/22 08:19 12/17/22 08:19 A&P Assessment and plan (1) Impulse control disorder, unspecified: (2) Alcohol dependence with acute alcoholic intoxication: (3) Suicidal ideation: Plan 42-year-old white male with significant genetic loading for alcohol abuse who presents again with alcohol dependence currently minimizing any mood symptoms but undergoing significant alcohol withdrawal symptoms currently. 1) Therapeutic observation 15 minute checks. 2) [place] protocol engaged 3) initiate individual milieu and group therapy 4) Patient does not wish for any help at this time. Referral for alcohol abuse/dependence treatment. He remains homeless at this time. Involuntary Hold Information 96 Hour Hold: 96 Hour Involuntary Admission: No 96 Hour Hold Ending Date: 06/04/22 96 Hour Hold Ending Time: 01:30 Attestations NPU Medical Necessity Statement*: The patient will continue to require psychiatric hospitalization with the patient to reside greater than 2 midnights. The likely length of stay is 2 to 4 days with patient to be monitored for acute alcohol withdrawal symptoms. Coding Level of Care Code Acute Code for [facility] Fwd Diagnoses Impulse control disorder, unspecified F63.9 Alcohol dependence with acute alcoholic intoxication F10.229 Suicidal ideation R45.851
[2022-12-18] MEDS: trazodone 50 mg Tablet PO (20:58)
[2022-12-18 21:20] VITALS: BP 100/66; PULSE 102; RESP 16; TEMP 36.8; O2SAT 94
[2022-12-18] MEDS: LORazepam 2 mg Tablet PO (22:19)
[2022-12-19] MEDS: OLANZapine 5 mg ODT PO (00:28)
[2022-12-19] MEDS: hyDROXYzine 25 mg Capsule 50 MG PO ×2 (00:28→23:24)
[2022-12-19] MEDS: LORazepam 2 mg Tablet PO (02:21)
[2022-12-19 06:00] VITALS: BP 97/64; PULSE 118; RESP 17; TEMP 36.4; O2SAT 99
[2022-12-19] MEDS: nicotine 21 mg Patch 1 PATCH TRANSDERMA (07:59)
[2022-12-19] MEDS: pantoprazole DR 40 mg Tablet PO ×2 (08:01→18:18)
[2022-12-19] MEDS: multivitamin therapeutic Tablet 1 TAB PO (08:01)
[2022-12-19] MEDS: thiamine 100 mg Tablet PO (08:01)
[2022-12-19] MEDS: acetaminophen 325 mg Tablet 650 MG PO ×2 (08:02→21:29)
[2022-12-19] MEDS: folic acid 1 mg Tablet PO (08:02)
[2022-12-19] MEDS: guaiFENesin 100 mg/5 mL UDC 10 mL 200 MG PO ×2 (08:34→16:25)
[2022-12-19] MEDS: ibuprofen 600 mg Tablet PO ×2 (10:42→18:21)
[2022-12-19] MEDS: TRAMadol 50 mg Tablet PO (12:12)
[2022-12-19 14:00] VITALS: BP 93/60; PULSE 103; RESP 18; TEMP 36.7; O2SAT 97
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
[2022-12-19] MEDS: diphenhydrAMINE 50 mg Capsule PO (18:18)
[2022-12-19 21:08] VITALS: BP 117/82; PULSE 104; RESP 16; TEMP 36.5; O2SAT 100
[2022-12-19] MEDS: cyclobenzaprine 10 mg Tablet 5 MG PO (21:26)
[2022-12-19] MEDS: trazodone 50 mg Tablet PO (22:14)
--- NOTE | 2022-12-19 23:25 | PC.NURSE ---
pt given prn vistaril for complaints of anxiety.
[2022-12-20] MEDS: OLANZapine 5 mg ODT PO (01:47)
--- NOTE | 2022-12-20 01:50 | PC.NURSE ---
pt given zyprexa prn for complaints of agitation.
--- NOTE | 2022-12-20 03:25 | PC.NURSE ---
prn zyprexa not effective. pt continues to state he is agitated requesting another prn. haldol po given as ordered.
[2022-12-20] MEDS: haloperidol 5 mg Tablet PO (03:27)
[2022-12-20 06:00] VITALS: BP 95/61; PULSE 118; TEMP 36.7; O2SAT 98
[2022-12-20] MEDS: nicotine 21 mg Patch 1 PATCH TRANSDERMA (08:02)
[2022-12-20] MEDS: folic acid 1 mg Tablet PO (08:02)
[2022-12-20] MEDS: cyclobenzaprine 10 mg Tablet 5 MG PO ×3 (08:03→21:22)
[2022-12-20] MEDS: thiamine 100 mg Tablet PO (08:03)
[2022-12-20] MEDS: multivitamin therapeutic Tablet 1 TAB PO (08:03)
[2022-12-20] MEDS: pantoprazole DR 40 mg Tablet PO ×2 (08:03→17:46)
[2022-12-20] MEDS: ibuprofen 600 mg Tablet PO ×2 (08:25→17:55)
[2022-12-20] MEDS: hyDROXYzine 25 mg Capsule 50 MG PO (08:25)
[2022-12-20] MEDS: LORazepam 2 mg Tablet PO (09:36)
[2022-12-20] MEDS: acetaminophen 325 mg Tablet 650 MG PO ×2 (13:14→21:24)
[2022-12-20 14:00] VITALS: BP 99/56; PULSE 90; RESP 18; TEMP 36.6; O2SAT 98
--- NOTE | 2022-12-20 18:23 | W.PM.NPUPNS ---
Subjective NPU Subjective: Patient is 42 year old white male with alcohol dependence admitted after having been in significant alcohol withdrawal while minimizing mood symptoms. Patient had reported that he wished to consider inpatient rehabilitation for substance use. He had been given a restraining order and was not allowed to return to his her home at this time. He continued to isolate himself on the milieu and was minimally engaged in treatment here with the patient struggling to attend groups and limited interaction with his peers. He had reported some pain issues but reported some improvement with tramadol. Mental Status Exam MSE Comments: He was lying in bed with his wheelchair nearby who appeared older than his stated age. His speech was normal regards to rate rhythm and prosody. He had no tremor noted today. He had poor hygiene, his gait was not tested as he had a right leg amputation. Mood was described as fine. Affect: His affect was restricted in range and mood incongruent. ? Perception: he did not appear to be responding to internal stimuli.?There was no evidence of delusional thinking. His attention was fair. His insight is feeble and his judgment was poor. His impulse control is impaired. He was alert and oriented to person, place and time. ? He minimized the reasons for his hospitalization and minimized his alcohol use. He denies suicidal or homicidal ideation. Vitals/I&O/Wt Last Vital Signs Temp 97.9 F 12/20/22 14:00 Pulse 90 12/20/22 14:00 Resp 18 12/20/22 14:00 BP 99/56 12/20/22 14:00 Pulse Ox 98 12/20/22 14:00 O2 Del Method 12/20/22 14:00 O2 Flow Rate 0 12/20/22 08:00 Weight last 48 hrs Weight 56.699 kg Data NPU 12/17/22 08:19 12/17/22 08:19 Micro: Microbiology 12/15/22 13:10 Blood Culture - Final Blood NO GROWTH AFTER 5 DAYS 12/15/22 13:06 Blood Culture - Final Blood NO GROWTH AFTER 5 DAYS Microbiology 12/15/22 13:10 Blood Blood Culture - Final NO GROWTH AFTER 5 DAYS 12/15/22 13:06 Blood Blood Culture - Final NO GROWTH AFTER 5 DAYS A&P Assessment and plan (1) Impulse control disorder, unspecified: (2) Alcohol dependence with acute alcoholic intoxication: (3) Suicidal ideation: Plan 42-year-old white male with significant genetic loading for alcohol abuse who presents again with alcohol dependence currently minimizing any mood symptoms but undergoing significant alcohol withdrawal symptoms currently. 1) Therapeutic observation 15 minute checks. 2) CIWA protocol engaged 3) initiate individual milieu and group therapy 4) Patient does not wish for any help at this time. Referral for alcohol abuse/dependence treatment. He remains homeless at this time. He is an excellent candidate for inpatient substance abuse treatment. 5) tramadol acutely for pain, cyclobenzaprine for back spasms. Involuntary Hold Information 96 Hour Hold: 96 Hour Involuntary Admission: No 96 Hour Hold Ending Date: 06/04/22 96 Hour Hold Ending Time: 01:30 Attestations NPU Medical Necessity Statement*: The patient will continue to require psychiatric hospitalization with the patient's likely length of stay is 2 to 4 days. Coding Level of Care Code Acute Code for [facility] Fwd Diagnoses Impulse control disorder, unspecified F63.9 Alcohol dependence with acute alcoholic intoxication F10.229 Suicidal ideation R45.851
[2022-12-20 20:07] VITALS: BP 103/70; PULSE 88; RESP 16; TEMP 36.3; O2SAT 95
--- NOTE | 2022-12-20 21:25 | PC.NURSE ---
PT COMPLAINED OF PAIN IN HIS BACK. TYLENOL GIVEN ORDERED.
[2022-12-20] MEDS: trazodone 50 mg Tablet PO (21:26)
--- NOTE | 2022-12-20 21:30 | PC.NURSE ---
PT STATED I NEED SOMETHING FOR SLEEP. TRAZODONE WAS GIVEN ORDERED.
--- NOTE | 2022-12-21 02:45 | PC.NURSE ---
Patient c/o anxiety rating it a 10/10. Patient noted to be visibly shaking and tearful. Patient states he is worried about his future and wants a chance to go to [place] to turn his life around. PRN vistaril given as ordered. Encouraged patient to try and relax and if unable to rest maybe to watch TV til he was less anxious.
[2022-12-21] MEDS: hyDROXYzine 25 mg Capsule 50 MG PO ×2 (02:49→09:13)
--- NOTE | 2022-12-21 02:51 | PC.NURSE ---
pt presents to nurses station anxious and states I need help with anxiety and sleep. PRN vistaril was given as ordered.
--- NOTE | 2022-12-21 03:30 | PC.NURSE ---
Patient continues to be anxious and states his is starting to feel agitated. Spent several minutes with patient discussing positive coping skills and attempted to divert attention to different subjects. Patient stated he still felt as though he needed a prn for agitation. PRN haldol po given as ordered.
[2022-12-21] MEDS: haloperidol 5 mg Tablet PO (03:31)
--- NOTE | 2022-12-21 05:27 | PC.NURSE ---
Patient reports he is feeling much better after haldol that was given. Patient appears calm.
[2022-12-21 05:38] VITALS: BP 107/76; RESP 20; TEMP 36.4; O2SAT 97
[2022-12-21] MEDS: ibuprofen 600 mg Tablet PO (07:57)
[2022-12-21] MEDS: nicotine 21 mg Patch 1 PATCH TRANSDERMA (07:57)
[2022-12-21] MEDS: folic acid 1 mg Tablet PO (07:58)
[2022-12-21] MEDS: cyclobenzaprine 10 mg Tablet 5 MG PO ×3 (07:58→20:03)
[2022-12-21] MEDS: pantoprazole DR 40 mg Tablet PO ×2 (07:58→17:49)
[2022-12-21] MEDS: thiamine 100 mg Tablet PO (07:58)
[2022-12-21] MEDS: multivitamin therapeutic Tablet 1 TAB PO (07:58)
[2022-12-21] MEDS: acetaminophen 325 mg Tablet 650 MG PO ×2 (09:13→17:49)
[2022-12-21] MEDS: TRAMadol 50 mg Tablet PO ×2 (13:27→20:03)
[2022-12-21 14:00] VITALS: BP 103/69; PULSE 99; RESP 18; TEMP 36.6; O2SAT 99
--- NOTE | 2022-12-21 16:28 | W.PM.NPUPNS ---
Subjective NPU Subjective: Patient is 42 year old white male with alcohol dependence admitted after having been in significant alcohol withdrawal while minimizing mood symptoms. The patient minimized depressed mood although he stated that he did wish to consider outpatient or inpatient substance abuse treatment particularly with his focus on alcohol. He had been more pleasant and cooperative on the milieu. He had endorsed a general sense of hopelessness on interview. He reported significant pain issues and reviews of his back had shown no clear areas of fracture although there was evidence of osteopenia. He had reported some struggles with concentration. He had acknowledged a significant history of serious medical complications associated with his alcohol use include pancreatitis. Mental Status Exam MSE Comments: He was lying in bed with his wheelchair nearby who appeared older than his stated age. His speech was normal regards to rate rhythm and prosody. He had no tremor and no abnormal tics noted noted. He had poor hygiene, his gait was not tested as he had a right leg amputation. Mood was described as okay. Affect: His affect was restricted in range and mood incongruent. ? Perception: he did not appear to be responding to internal stimuli.?There was no evidence of delusional thinking. His attention was fair. His insight is feeble and his judgment was poor. His impulse control is impaired. He was alert and oriented to person, place and time. ? He minimized the reasons for his hospitalization and but endorsed significant alcohol use. He denies suicidal or homicidal ideation. Vitals/I&O/Wt Last Vital Signs Temp 98 F 12/21/22 14:00 Pulse 99 12/21/22 14:00 Resp 18 12/21/22 14:00 BP 103/69 12/21/22 14:00 Pulse Ox 99 12/21/22 14:00 O2 Del Method 12/21/22 14:00 O2 Flow Rate 0 12/21/22 07:57 12/21/22 12/21/22 12/21/22 06:59 14:59 22:59 Intake Total 900 / 900 Balance 900 / 900 Data NPU 12/17/22 08:19 12/17/22 08:19 Micro: Microbiology 12/15/22 13:10 Blood Culture - Final Blood NO GROWTH AFTER 5 DAYS 12/15/22 13:06 Blood Culture - Final Blood NO GROWTH AFTER 5 DAYS Microbiology 12/15/22 13:10 Blood Blood Culture - Final NO GROWTH AFTER 5 DAYS 12/15/22 13:06 Blood Blood Culture - Final NO GROWTH AFTER 5 DAYS A&P Assessment and plan (1) Impulse control disorder, unspecified: (2) Alcohol dependence with acute alcoholic intoxication: (3) Suicidal ideation: Plan 42-year-old white male with significant genetic loading for alcohol abuse who presents again with alcohol dependence currently minimizing any mood symptoms but undergoing significant alcohol withdrawal symptoms currently. 1) Therapeutic observation 15 minute checks. 2) CIWA protocol engaged 3) initiate individual milieu and group therapy 4) Patient does not wish for any help at this time. Referral for alcohol abuse/dependence treatment. He remains homeless at this time. He is an excellent candidate for inpatient substance abuse treatment. 5) tramadol acutely for pain, cyclobenzaprine for back spasms. Involuntary Hold Information 96 Hour Hold: 96 Hour Involuntary Admission: No 96 Hour Hold Ending Date: 06/04/22 96 Hour Hold Ending Time: 01:30 Attestations NPU Medical Necessity Statement*: The patient will continue to require psychiatric hospitalization with the patient's likely length of stay is 2 to 4 days. Coding Level of Care Code Acute Code for [facility] Diagnoses Impulse control disorder, unspecified F63.9 Alcohol dependence with acute alcoholic intoxication F10.229 Suicidal ideation R45.851
[2022-12-21] MEDS: trazodone 50 mg Tablet PO (20:03)
[2022-12-21 21:06] VITALS: BP 104/70; PULSE 92; RESP 16; TEMP 36.6; O2SAT 98
[2022-12-22] MEDS: TRAMadol 50 mg Tablet PO ×2 (04:23→10:19)
[2022-12-22 06:00] VITALS: BP 104/73; PULSE 115; RESP 18; TEMP 36.4; O2SAT 99
[2022-12-22] MEDS: folic acid 1 mg Tablet PO (07:36)
[2022-12-22] MEDS: cyclobenzaprine 10 mg Tablet 5 MG PO (07:36)
[2022-12-22] MEDS: pantoprazole DR 40 mg Tablet PO (07:36)
[2022-12-22] MEDS: thiamine 100 mg Tablet PO (07:36)
[2022-12-22] MEDS: nicotine 21 mg Patch 1 PATCH TRANSDERMA (07:37)
[2022-12-22] MEDS: multivitamin therapeutic Tablet 1 TAB PO (07:37)
[2022-12-22] MEDS: ibuprofen 600 mg Tablet PO (09:01)
--- NOTE | 2022-12-22 11:09 | DCPLANNER ---
IMM was given to pt and rights explained and copy placed in file.
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
[2022-12-22 12:15] VITALS: BP 104/73; PULSE 115; RESP 18; TEMP 36.4; O2SAT 99
== END 2022-12-22 14:28 | disposition home or self-care (01) | DRG 897 ==
LOC: ER 12:04 → ICU 14:21 → NP 12-16 14:53 → ICU 12-17 07:08
PROVIDERS: Physician Assistant; Admitting Provider Internal Medicine; Emergency Provider Family Medicine; PCP Family Medicine Adult Medicine; Visit Provider Psychiatry & Neurology Psychiatry
DX: F10.229 Alcohol dependence with intoxication, unspecified (principal); F10.239 Alcohol dependence with withdrawal, unspecified; Y90.5 Blood alcohol level of 100-119 mg/100 ml; Z89.511 Acquired absence of right leg below knee; F32.A Depression, unspecified; Z63.0 Problems in relationship with spouse or partner; F12.20 Cannabis dependence, uncomplicated; F17.210 Nicotine dependence, cigarettes, uncomplicated; E87.6 Hypokalemia; E83.42 Hypomagnesemia; F63.9 Impulse disorder, unspecified
CPT/HCPCS: 36415; 71045; 72072; 80053; 80074; 80306; 80307; 81001; 83735; 84132; 84443; 85025; 87040; 87426; 87804; 96372; 96374; 96375; 96376; 97150; 97165; 99238; 99285; C9113; J1650; J2060; J2405; J3411; J3475; J3480; J7030; Q0163

== ENCOUNTER 2023-09-28 17:50 | Inpatient (IN) | payer MEDICARE, MEDICAID, SELFPAY ==
[2023-09-28] VITALS (17 sets, daily range): BP systolic 102–180; BP diastolic 68–108; PULSE 95–180; RESP 14–26; TEMP 36.6; O2SAT 87–99; BMI 17.7
--- NOTE | 2023-09-28 17:55 | CTR_ITS ---
PROCEDURE INFORMATION: Exam: CT Head Without Contrast Exam date and time: 09/28/2023 8:00 PM Age: 42 years old Clinical indication: Injury or trauma; Fall; Blunt trauma (contusions or hematomas); Additional info: AMS TECHNIQUE: Imaging protocol: Computed tomography of the head without contrast. Radiation optimization: All CT scans at this facility use at least one of these dose optimization techniques: automated exposure control; mA and/or kV adjustment per patient size (includes targeted exams where dose is matched to clinical indication); or iterative reconstruction. REPORTING DATA: Count of CT and Cardiac NM exams in prior 12 months: This patient has received 0 known CTs and 0 known cardiac nuclear medicine studies in the 12 months prior to the current study. COMPARISON: CT head wo con* [id number] 01/20/2022 5:41 AM RADIATION DOSE METRICS: Total DLP (mGy-cm): 1275 FINDINGS: Brain: No acute infarct. No hemorrhage. Unremarkable white matter for age. No mass effect. Cerebral ventricles: No ventriculomegaly. Paranasal sinuses: No significant inflammation. No fluid levels. Mastoid air cells: Visualized mastoid air cells are well aerated. Bones/joints: Unremarkable. No acute fracture. Soft tissues: Subcutaneous emphysema is seen in the right upper neck and cafeteria assistant space. CT/CT head wo con* [id number] IMPRESSION: No acute intracranial abnormality.
--- NOTE | 2023-09-28 17:55 | XRR_ITS ---
PROCEDURE INFORMATION: Exam: XR Chest Exam date and time: 09/28/2023 6:39 PM Age: 42 years old Clinical indication: Shortness of breath; Patient HX: Labored breathing; AMS; PT found unresponsive; Seizures; Hallucinations TECHNIQUE: Imaging protocol: Radiologic exam of the chest. Views: 1 view. COMPARISON: CR XR chest 1V portable [id number] 12/15/2022 11:49 AM FINDINGS: Limitations: Study is limited by positioning. The left costophrenic angle is excluded. Lungs: Unremarkable. No consolidation. Pleural spaces: Unremarkable. No pleural effusion. No pneumothorax. Heart/Mediastinum: Unremarkable. No cardiomegaly. Bones/joints: Right clavicular ORIF changes are stable. Soft tissues: There is subcutaneous emphysema present in the [id number]-left lower neck. There is a punctate right neck radiodensity present measuring 2 mm possibly a small foreign body. XR/XR chest 1V portable [id number] IMPRESSION: Subcutaneous emphysema seen in the lower neck with possible small foreign body on the right. Recommend clinical correlation.
--- NOTE | 2023-09-28 17:56 | ECG_ITS ---
[facility] Test Date: 2023-09-28 Pat Name: Pool Dubose Department: Room: Gender: Male Corporate Director Of Pharmacy: : [id number] Requested By: King Wong Order Number: [id number] Humberto MD: Parish Madden M.D. Measurements Intervals [place] Rate: 174 P: 0 MN: 0 QRS: 263 QRSD: 110 T: 87 QT: 284 QTc: 484 Interpretive Statements Significant baseline artifact Rhythm appeared to be SUPRAVENTRICULAR TACHYCARDIA Compared to ECG 01/20/2022 05:12:41 Sinus rhythm no longer present Electronically Signed On 09-29-2023 16:39:18 [facility] DIRECTOR by Parish Madden M.D. [id number]
[2023-09-28 18:08] LABS: ABG PCO2 51.1 mmHg (35-45); ABG PH Result 7.36 (7.35-7.45); Alveolar-Arterial Oxygen Gradi 0.7 mmHg (5-10); Arterial Blood Gas Hematocrit 47.4 % (42-52); Base Excess ABG 2.4 mmol/L (-2.0-2.0); Blood Gas Allen Test Pos; Blood Gas Operator Identificat WALCI; Blood Gas Sample Site Radial, right; Blood Gas Sample Type Arterial; Carboxyhemoglobin 2.7 %THgb (0.4-20.1); HGB O2 Sat 92.4 % (95-100); Ionized Calcium Level - ABG 1.1 mmol/L (1.1-1.4); Methemoglobin 0.5 % (0.4-1.5); Oxygen Device ROOM AIR; Oxygen Saturation ABG 95.5; PO2 ABG 81.8 mmHg (80.0-100.0); PO2 FiO2 Ratio Arterial Blood 0; Potassium Level - ABG 2.9 mmol/L (3.5-5.0); Total Hemoglobin 15.5 g/dL (14-18)
[2023-09-28] MEDS: sodium chloride 0.9% 1,000 ML 999 ML IV ×2 (18:08→18:40)
[2023-09-28] MEDS: labetalol 5 mg/mL SDV 20mL 10 MG IVP (18:08)
[2023-09-28] MEDS: ondansetron 2 mg/ML SDV 2 mL 4 MG IVP (18:09)
[2023-09-28] MEDS: LORazepam 2 mg/mL INJ 1 mL IVP ×2 (18:09→21:16)
--- NOTE | 2023-09-28 18:15 | CTR_ITS ---
PROCEDURE INFORMATION: Exam: CT Cervical Spine Without Contrast Exam date and time: 09/28/2023 8:00 PM Age: 42 years old Clinical indication: Injury or trauma; Fall; Blunt trauma TECHNIQUE: Imaging protocol: Computed tomography of the cervical spine without contrast. Radiation optimization: All CT scans at this facility use at least one of these dose optimization techniques: automated exposure control; mA and/or kV adjustment per patient size (includes targeted exams where dose is matched to clinical indication); or iterative reconstruction. REPORTING DATA: Count of CT and Cardiac NM exams in prior 12 months: This patient has received 0 known CTs and 0 known cardiac nuclear medicine studies in the 12 months prior to the current study. COMPARISON: CT cervical spin wo con* [id number] 01/20/2022 5:44 AM RADIATION DOSE METRICS: Total DLP (mGy-cm): 154 FINDINGS: Tubes, catheters and devices: Endotracheal tube is present. Bones/joints: Near anatomic alignment. No acute cervical spinal fracture. There is minimal anterior/superior endplate height loss of the T1 vertebrae which appears chronic. Multilevel degenerative changes are present. Lungs: Biapical bullous changes. Soft tissues: Neck subcutaneous soft tissue emphysema again visualized. CT/CT cervical spin wo con* [id number] IMPRESSION: 1. No acute cervical spinal fracture. 2. Minimal anterior/superior endplate height loss of the T1 vertebrae is favored to be chronic. Correlate with point tenderness.
--- NOTE | 2023-09-28 18:28 | ED_ITS ---
HPI - Seizure 2 General: Chief Complaint: Seizure Stated Complaint: found unresponsive Time Seen by Provider: 09/28/23 17:55 Source: EMS Mode of arrival: EMS Limitations: altered mental status History of Present Illness: HPI Narrative: 42-year-old male has had a history of se pily alcoholism in the past has had history of withdrawals EMS was called patient was seizing and unresponsive with them. Patient here is tachycardic and hypertensive he is now awake but he is not following any commands at all. 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 Medical cannabis use HAS A CURRENT MEDICAL CARD S/p tibial fracture TIBIA / FIBULA FX REPAIR Surgical History S/P BKA (below knee amputation) Right BKA Family History Denies family history of Anesthesia complication Bleeding disorder Social History Smoking and tobacco/nicotine status: current every day tobacco/nicotine user cigarettes Packs smoked per day: 1 [ Other cigarette details: >20 years] Second hand smoke exposure: No Alcohol intake: current Alcohol intake frequency: other Alcohol type: hard liquor Substance/Drug Use: current Substance/Drug use frequency: few times a week Lives independently: Yes Household members: family Marital status: Single Physical Exam 2 Const: COMMON NORMALS: negative for patient oriented x3 GENERAL APPEARANCE: disheveled and ill appearing HENMT: COMMON NORMALS: normocephalic HEAD & SCALP: normocephalic OTHER: multiple bruises noted to head Eye: COMMON NORMALS: Equal, round and reactive pupils present and EOMs intact bilaterally PUPIL: Yes Equal, round and reactive pupils present Neck/C-Spine: COMMON NORMALS: supple Chest: COMMONS NORMALS: normal inspection of the chest and normal palpation of entire chest wall Resp: COMMON NORMALS: normal respiratory effort, No retractions, No use of accessory muscles and clear to auscultation bilaterally AUSCULTATION: clear to auscultation bilaterally Cardio: COMMON NORMALS: regular rhythm and No murmurs present (Cardio) R ATE: tachycardic RHYTHM: regular rhythm GI: COMMON NORMALS: Normal to inspection, nondistended, normoactive bowel sounds present, Soft to palpation, non-tender and no masses PALPATION: Yes Soft to palpation Extremity: COMMON NORMALS: normal to inspection Neuro: COMMON NORMALS: moves all extremities; negative for patient oriented x3 Psych: COMMON NORMALS: negative for mental status grossly normal Skin: COMMON NORMALS: no rashes or lesions noted and no wounds GENERAL SKIN EXAM: no rashes or lesions noted Procedures Intubation Time out performed: Yes sedative: Etomidate Mg Given: 20 paralytic: Vecuronium Mg Given: 10 Laryngoscope: Paddy ET Tube Size: 8 ET Tube Uncuffed: No Tube Secured Depth (cm): 25 Tube Secured Location: teeth Tube Placement Confirmation: visualized tube passing through cords, equal breath sounds bilaterally, no breath sounds over epigastrium and confirmation by capnometry Patient Tolerated Procedure: well Intubation Complications: none Course 2 Vital Signs: Vital signs: Vital Signs Temperature 97.9 F 09/28/23 17:53 Pulse Rate 102 H 09/28/23 23:26 Respiratory Rate 14 09/28/23 23:26 Blood Pressure 102/68 09/28/23 23:26 Pulse Oximetry 93 09/28/23 23:26 Oxygen Delivery Me thod Mechanical Ventil ation 09/28/23 23:26 Oxygen Flow Rate 2 09/28/23 18:46 Fraction of Inspir ed Oxygen 40 09/28/23 23:26 MDM - Seizure MDM Narrative Medical decision making narrative: Patient presents here with altered mental status along with seizure likely had a withdrawal seizure patient's been altered here in combative did have to intubate him. Did CT scan him he does have a pneumomediastinum CT head was normal has been given IV fluids here along with Ativan he is on a propofol drip currently patient's admitted to ICU. Lab Data 09/28/23 18:00 09/28/23 18:00 Labs: Radiology Impressions Head CT 09/28/23 17:55 IMPRESSION: No acute intracranial abnormality. Cervical Spine CT 09/28/23 18:15 IMPRESSION: 1. No acute cervical spinal fracture. 2. Minimal anterior/superior endplate height loss of the T1 vertebrae is favored to be chronic. Correlate with point tenderness. Chest CT 09/28/23 19:49 IMPRESSION: 1. Diffuse pneumomediastinum. The endotracheal tube tip is noted to abut the anterior wall of the trachea, recommend clinical correlation and repositioning as indicated. 2. Small right anterior/anteromedial pneumothorax. ADDENDUM: 09/28/230 THIS REPORT CONTAINS FINDINGS THAT MAY BE CRITICAL TO PATIENT CARE. The findings were reviewed in the report by Dr. Travis Bee at 9:07 PM AUT[employer] B[employer]KE MECH[employer]IC on 09/28/2023. No additional questions were had. The findings were acknowledged and understood. Neck CT 09/28/23 19:49 IMPRESSION: Partially seen 2 mm medial right apical pneumothorax correlating with the abnormality on the comparison x-ray chest. There is also pneumomediastinum present on CT. Subcutaneous emphysema in the neck greatest at the base is again present. Possible 3 mm foreign body in the right neck soft tissues. ADDENDUM: 09/28/232116 THIS REPORT CONTAINS FINDINGS THAT MAY BE CRITICAL TO PATIENT CARE. As of 9:16 PM AUTO BRAKE MECH[employer]IC on 09/28/2023, TRAVIS Verdin has received the exam report, is aware of the critical finding(s), and indicated no conference call is necessary to discuss the exam findings. Chest X-Ray 09/28/23 20:55 IMPRESSION: Endotracheal tube 7 cm above the jose alejandro at the superior margin of the clavicles, similar to previous. No other changes. Laboratory Results WBC 14.72 10^3/uL (3.29-11.43) H 09/28/23 18:00 RBC 4.79 10^6/uL (3.85-5.65) 09/28/23 18:00 Hgb 15.50 g/dL (11.27-16.99) 09/28/23 18:00 Hct 47.1 % (37-53) 09/28/23 18:00 MCV 98.3 fl (82-101) 09/28/23 18:00 MCH 32.4 pg (27-33) 09/28/23 18:00 MCHC 32.9 g/dL (30-55) 09/28/23 18:00 RDW 14.9 % (12.1-15.1) 09/28/23 18:00 Plt Count 185 10^3/cmm (157-399) 09/28/23 18:00 MPV 10.8 fL (7.4-10.4) H 09/28/23 18:00 Neut % (Auto) 68.1 % 09/28/23 18:00 Lymph % (Auto) 15.0 % 09/28/23 18:00 [place] % (Auto) 16.0 % 09/28/23 18:00 Eos % (Auto) 0.0 % 09/28/23 18:00 Baso % (Auto) 0.4 % 09/28/23 18:00 Neut # (Auto) 10.02 10^3/uL (1.8-7.7) H 09/28/23 18:00 Lymph # (Auto) 2.2 10^3/uL (0.8-4.8) 09/28/23 18:00 [place] # (Auto) 2.4 10^3/uL (0.2-0.9) H 09/28/23 18:00 Eos # (Auto) 0.0 10^3/uL (0.0-0.8) 09/28/23 18:00 Baso # (Auto) 0.1 10^3/uL (0.0-0.1) 09/28/23 18:00 Nucleated RBC % (auto) 0 % 09/28/23 18:00 Nucleated RBCs # 0.0 /100WBC 09/28/23 18:00 Specimen Type Arterial 09/28/23 22:50 Sample Site Radial, left 09/28/23 22:50 ABG pH 7.53 (7.35-7.45) H 09/28/23 22:50 ABG pCO2 41.7 mmHg (35-45) 09/28/23 22:50 ABG pO2 63.2 mmHg (80.0-100.0) L 09/28/23 22:50 ABG PO2/FiO2 Ratio 0 09/28/23 22:50 ABG HCO3 34.6 mmol/L (22-26) H 09/28/23 22:50 ABG O2 Saturation 94.2 09/28/23 22:50 ABG Base Excess 10.7 mmol/L (-2.0-2.0) H 09/28/23 22:50 [place] Test Pos 09/28/23 22:50 A-a O2 Gradient 22.1 mmHg (5-10) H 09/28/23 22:50 Hematocrit 40.2 % (42-52) L 09/28/23 22:50 Hgb O2 Saturation 91.7 % (95-100) L 09/28/23 22:50 Carboxyhemoglobin 1.9 %THgb (0.4-20.1) 09/28/23 22:50 Methemoglobin 0.7 % (0.4-1.5) 09/28/23 22:50 Total Hemoglobin 13.1 g/dL (14-18) L 09/28/23 22:50 Sodium 133.0 mmol/L (131-143) 09/28/23 22:50 Potassium 2.4 mmol/L (3.5-5.0) L 09/28/23 22:50 Glucose 85.0 mg/dL (70-115) 09/28/23 22:50 Ionized Calcium 1.1 mmol/L (1.1-1.4) 09/28/23 22:50 O2 Delivery Device Vent 09/28/23 22:50 FiO2 40.0 % 09/28/23 22:50 PEEP 5.0 cmH20 09/28/23 22:50 Preschool Assistant ID [email or web address] 09/28/23 22:50 Sodium 133 mmol/L (136-145) L 09/28/23 18:00 Potassium 2.9 mmol/L (3.5-5.1) L 09/28/23 18:00 Chloride 66 mmol/L (98-107) L 09/28/23 18:00 Carbon Dioxide 19 mmol/L (22-29) L 09/28/23 18:00 Anion Gap 50.9 (5-19) H 09/28/23 18:00 BUN 20 mg/dL (6-20) 09/28/23 18:00 Creatinine 1.6 mg/dL (0.7-1.2) H 09/28/23 18:00 GFR Calculation 47.2 mL/min (90-130) L 09/28/23 18:00 Glucose 136 mg/dL (65-115) H 09/28/23 18:00 Calculated Osmolality 281 mOsm/kg (285-295) L 09/28/23 18:00 Lactic Acid 15.4 mmol/L (0.5-2.2) H* 09/28/23 18:00 Lactic Acid (Sepsis) 2.2 mmol/L (0.5-2.2) 09/28/23 21:00 Calcium 11.6 mg/dL (8.5-10.5) H 09/28/23 18:00 Magnesium 3.0 mg/dL (1.7-2.3) H 09/28/23 18:00 Total Bilirubin 1.6 mg/dL (0.15-1.2) H 09/28/23 18:00 AST 110 U/L (0-40) H 09/28/23 18:00 ALT 71 U/L (0-41) H 09/28/23 18:00 Alkaline Phosphatase 119 U/L (40-130) 09/28/23 18:00 Creatine Kinase 765 U/L (39-308) H* 09/28/23 18:00 Troponin T Baseline 21 ng/L (0-15) H 09/28/23 18:00 Troponin T 120 Minute 27.46 ng/L (0-15) H 09/28/23 20:21 Delta Troponin T 6.46 ABS# (0-10) 09/28/23 20:21 NT-Pro-B Natriuret Pep 551 pg/mL (0-125) H 09/28/23 20:21 Total Protein 8.5 g/dL (6.6-8.7) 09/28/23 18:00 Albumin 5.4 g/dL (3.5-5.2) H 09/28/23 18:00 Globulin 3.1 g/dL (1.3-4.6) 09/28/23 18:00 Lipase 20 U/L (13-60) 09/28/23 18:00 Procalcitonin 0.48 ng/mL (0-0.5) 09/28/23 20:21 Urine Color Yellow (Yellow) 09/28/23 21:35 Urine Appearance Hazy (CLEAR) A 09/28/23 21:35 Urine pH 8 (5-7) H 09/28/23 21:35 Ur Specific [place] 1.010 (1.005-1.030) 09/28/23 21:35 Urine Protein 2+ (Negative) H 09/28/23 21:35 Urine Glucose (UA) Norm (Normal) 09/28/23 21:35 Urine Ketones 2+ (Negative) H 09/28/23 21:35 Urine Blood 3+ (Negative) H 09/28/23 21:35 Urine Nitrate Negative (Negative) 09/28/23 21:35 Urine Bilirubin Neg (Negative) 09/28/23 21:35 Prot Sulfosalicylic Acd Positive (Negative) 09/28/23 21:35 Urine Urobilinogen Neg mg/dL (Negative) 09/28/23 21:35 Ur Leukocyte Esterase Negative (Negative) 09/28/23 21:35 Urine RBC 5-10 /hpf (0-2) H 09/28/23 21:35 Urine WBC None /hpf (0-5) 09/28/23 21:35 Ur Squamous Epith Cells None /hpf (0-5) 09/28/23 21:35 Ur Transition Epith Cell 0-4 /hpf 09/28/23 21:35 Amorphous Sediment Not Reportable 09/28/23 21:35 Urine Bacteria 1+ /hpf (NONE) H 09/28/23 21:35 Hyaline Casts 0-4 /lpf H 09/28/23 21:35 Urine Mucus 2+ /hpf 09/28/23 21:35 Urine Opiates Screen Negative ng/mL (Negative) 09/28/23 21:35 Ur Barbiturates Screen Negative ng/mL (Negative) 09/28/23 21:35 Ur Phencyclidine Scrn Negative ng/mL (Negative) 09/28/23 21:35 Ur Amphetamines Screen Negative ng/mL (Negative) 09/28/23 21:35 U Benzodiazepines Scrn Positive ng/mL (Negative) H 09/28/23 21:35 Urine Cocaine Screen Negative ng/mL (Negative) 09/28/23 21:35 U Marijuana (THC) Screen Positive ng/mL (Negative) H 09/28/23 21:35 Ethyl Alcohol < 10 mg/dL (0-10) 09/28/23 18:00 Serum Ketones Negative (Negative) 09/28/23 18:00 All radiology interpretation(s) finalized by discharge Critical Care Time 2 Critical Care Time: Critical Care Time: Yes Total Critical Care Time: 40 Attestation: The high probability of a clinically significant, sudden or life threatening deterioration of the patient's neuro system(s) required my full and direct attention, intervention and personal management. The critical care time is as shown. This time is in addition to time spent performing any reported procedures but includes the following: [x] Data and vital sign review and interpretation [x] Patient assessment, examination and intervention [x] Documentation [x] Medication orders and management Discharge Plan Discharge Patient Disposition: Admitted As Inpatient Admit Provider: Ruy Mcneal Clinical Impression: Altered mental status, Seizure Condition: Stable Coding Level of Care Code ED Acupuncturist for Devan Nguyen
[2023-09-28 18:46] LABS: Basophils # 0.1 10^3/uL (0.0-0.1); Basophils % 0.4 %; Hematocrit 47.1 % (37-53); Lymphocytes # 2.2 10^3/uL (0.8-4.8); Mean Corpuscular HGB Conc 32.9 g/dL (30-55); Mean Corpuscular Hemoglobin 32.4 pg (27-33); Mean Corpuscular Volume 98.3 fl (82-101); Mean Platelet Volume 10.8 fL (7.4-10.4); Monocytes # 2.4 10^3/uL (0.2-0.9); Neutrophils # 10.02 10^3/uL (1.8-7.7); Neutrophils % 68.1 %; Nucleated Red Blood Cells % 0 %; Platelet Count 185 10^3/cmm (157-399); Red Blood Count 4.79 10^6/uL (3.85-5.65); Red Cell Distribution Width 14.9 % (12.1-15.1); White Blood Count 14.72 10^3/uL (3.29-11.43)
[2023-09-28 19:08] LABS: Alanine Aminotransferase 71 U/L (0-41); Albumin Level 5.4 g/dL (3.5-5.2); Alkaline Phosphatase 119 U/L (40-130); Aspartate Amino Transferase 110 U/L (0-40); Blood Urea Nitrogen 20 mg/dL (6-20); Calcium 11.6 mg/dL (8.5-10.5); Carbon Dioxide 19 mmol/L (22-29); Chloride 66 mmol/L (98-107); Creatinine Clr Calc Pharmacy 45.3592; Globulin 3.1 g/dL (1.3-4.6); Glomerular Filtration Rate 47.2 mL/min (90-130); Glucose 136 mg/dL (65-115); Lipase 20 U/L (13-60); Osmolality Calculated 281 mOsm/kg (285-295); Sodium 133 mmol/L (136-145); Total Bilirubin 1.6 mg/dL (0.15-1.2); Total Protein 8.5 g/dL (6.6-8.7)
[2023-09-28 19:09] LABS: Anion Gap 50.9 (5-19)
[2023-09-28 19:10] LABS: Alcohol Level < 10 mg/dL (0-10); Creatine Phosphokinase 765 U/L (39-308); Potassium 2.9 mmol/L (3.5-5.1)
[2023-09-28 19:11] LABS: Lactic Sepsis W/Reflex 15.4 mmol/L (0.5-2.2)
[2023-09-28 19:25] LABS: Ketone (Acetest) Serum Negative (Negative)
--- NOTE | 2023-09-28 19:40 | XRR_ITS ---
PROCEDURE INFORMATION: Exam: XR Chest Exam date and time: 09/28/2023 7:46 PM Age: 42 years old Clinical indication: Device placement; Ett placement (vent status) TECHNIQUE: Imaging protocol: Radiologic exam of the chest. Views: 1 view. COMPARISON: CR (CHEST, ) 09/28/2023 6:39 PM FINDINGS: Limitations: The study is limited by positioning with a lung apices excluded. Tubes, catheters and devices: There is an endotracheal tube present with its tip located at the superior clavicular margin 7.3 cm above the jose alejandro. Lungs: Unremarkable. No consolidation. Pleural spaces: Left apical pleural scarring is unchanged. No definite left-sided pneumothorax. Possible 1 cm right pneumothorax. Heart/Mediastinum: Unremarkable. No cardiomegaly. Bones/joints: Stable XR/XR chest 1V portable [id number] IMPRESSION: 1. Possible 1 cm right-sided apical pneumothorax. 2. There is an endotracheal tube present with its tip located at the superior clavicular margin 7.3 cm above the jose alejandro.
[2023-09-28] MEDS: etomidate 2 mg/mL INJ SDV 10 mL 20 MG IVP (19:44)
[2023-09-28] MEDS: vecuronium 10 mg SDV IVP (19:44)
[2023-09-28] MEDS: propofol 1,000 MG/100 ML INJ 1.63 MG IV (19:45)
--- NOTE | 2023-09-28 19:49 | CTR_ITS ---
PROCEDURE INFORMATION: Exam: CT Chest Without Contrast; Diagnostic Exam date and time: 09/28/2023 8:07 PM Age: 42 years old Clinical indication: Injury or trauma; Fall; Blunt trauma (contusions or hematomas) TECHNIQUE: Imaging protocol: Diagnostic computed tomography of the chest without contrast. Radiation optimization: All CT scans at this facility use at least one of these dose optimization techniques: automated exposure control; mA and/or kV adjustment per patient size (includes targeted exams where dose is matched to clinical indication); or iterative reconstruction. REPORTING DATA: Count of CT and Cardiac NM exams in prior 12 months: This patient has received 0 known CTs and 0 known cardiac nuclear medicine studies in the 12 months prior to the current study. COMPARISON: CR (CHEST, ) 09/28/2023 7:46 PM RADIATION DOSE METRICS: Total DLP (mGy-cm): 353 FINDINGS: Lungs: There are multiple bulla noted predominantly in the apices indicating emphysematous disease. Pleural spaces: There is a small right anterior anteromedial pneumothorax. No pleural effusion. Heart: No cardiomegaly. No pericardial effusion. Coronary arteries: There is no coronary artery calcification. Lymph nodes: enlarged lymph nodes. Vasculature: Unremarkable. No aortic aneurysm. Liver: There is fatty infiltration of the liver. Bones/joints: Patient is status post plate and screw fixation for a right clavicular fracture. The hardware is intact. There are mild compression fractures of the T7, T8 and T9 vertebral bodies, recommend clinical correlation as acute fractures can not be ruled out in the setting of trauma. Soft tissues: There is diffuse pneumomediastinum which outlines the aortic branches, bronchial menard, and mediastinal structures. There is an endotracheal tube in position, the tube tip is abutting the anterior wall of the trachea. Recommend clinical correlation. CT/CT chest wo con [id number] IMPRESSION: 1. Diffuse pneumomediastinum. The endotracheal tube tip is noted to abut the anterior wall of the trachea, recommend clinical correlation and repositioning as indicated. 2. Small right anterior/anteromedial pneumothorax.
--- NOTE | 2023-09-28 19:49 | CTR_ITS ---
PROCEDURE INFORMATION: Exam: CT Neck Without Contrast Exam date and time: 09/28/2023 8:00 PM Age: 42 years old Clinical indication: Injury or trauma; Fall; Blunt trauma (contusions or hematomas) TECHNIQUE: Imaging protocol: Computed tomography of the neck without contrast. Radiation optimization: All CT scans at this facility use at least one of these dose optimization techniques: automated exposure control; mA and/or kV adjustment per patient size (includes targeted exams where dose is matched to clinical indication); or iterative reconstruction. REPORTING DATA: Count of CT and Cardiac NM exams in prior 12 months: This patient has received 0 known CTs and 0 known cardiac nuclear medicine studies in the 12 months prior to the current study. COMPARISON: CT cervical spin wo con* [id number] 09/28/2023 8:00 PM RADIATION DOSE METRICS: Total DLP (mGy-cm): 161 FINDINGS: Tubes, catheters and devices: There is an endotracheal tube present with tip at the superior clavicular margin. Pharynx: Unremarkable. No significant tonsillar enlargement. Larynx: Unremarkable. Epiglottis is normal. Prevertebral and retropharyngeal spaces: Unremarkable. Salivary glands: Normal. Glands are normal in size. Thyroid: Normal. No enlarged or calcified nodules. Lymph nodes: Unremarkable. No lymphadenopathy. Trachea: Visualized trachea is unremarkable. Lungs: There are apical bullous changes with scarring bilaterally. Partially seen right apical pneumothorax measuring 2 mm. There are tree-in-bud nodules seen throughout the visualized lung apices. Mediastinal space: There is pneumomediastinum present. Bones/joints: Unremarkable. No acute fracture. Soft tissues: There is subcutaneous emphysema in the neck greatest on the right side and greatest inferiorly there is a 3 mm radiodensity in the right neck soft tissues at the C5 level possibly a small foreign body. Right clavicular ORIF changes. CT/CT neck wo con [id number] IMPRESSION: Partially seen 2 mm medial right apical pneumothorax correlating with the abnormality on the comparison x-ray chest. There is also pneumomediastinum present on CT. Subcutaneous emphysema in the neck greatest at the base is again present. Possible 3 mm foreign body in the right neck soft tissues.
[2023-09-28 19:54] LABS: Troponin(5th) Baseline 21 ng/L (0-15)
[2023-09-28 20:27] LABS: Reflex Lactate Order REFLEX LACTIC ORDERD
--- NOTE | 2023-09-28 20:34 | XRR_ITS ---
PROCEDURE INFORMATION: Exam: XR Chest Exam date and time: 09/28/2023 8:47 PM Age: 42 years old Clinical indication: Device placement; Patient HX: Ng tube confirmation TECHNIQUE: Imaging protocol: Radiologic exam of the chest. Views: 1 view. COMPARISON: CT chest con [id number] 09/28/2023 8:07 PM FINDINGS: Tubes, catheters and devices: There is a feeding tube present with its tip in the left upper quadrant in the region of the stomach. Lungs: Unremarkable. No consolidation. Pleural spaces: Unremarkable. No pleural effusion. No pneumothorax. Heart/Mediastinum: Unremarkable. No cardiomegaly. Bones/joints: Unremarkable. XR/XR chest 1V portable [id number] IMPRESSION: There is a feeding tube present with its tip in the left upper quadrant in the region of the stomach.
[2023-09-28 20:55] LABS: Troponin 5 2HR 27.46 ng/L (0-15); Troponin 5 2HR Delta 6.46 ABS# (0-10)
--- NOTE | 2023-09-28 20:55 | XRR_ITS ---
PROCEDURE INFORMATION: Exam: XR Chest Exam date and time: 09/28/2023 8:57 PM Age: 42 years old Clinical indication: Device placement; Ett placement (vent status); Patient HX: Ett repositioning TECHNIQUE: Imaging protocol: Radiologic exam of the chest. Views: 1 view. COMPARISON: CR (CHEST, ) 09/28/2023 8:47 PM FINDINGS: Tubes, catheters and devices: Feeding tube tip below the image seen in stomach on comparison study is unchanged. The endotracheal tube is positioned 7 cm above the jose alejandro of the superior margin of the clavicles which is similar to previous. Lungs: No consolidation. Pleural spaces: Minimal right apical pneumothorax is unchanged. Heart/Mediastinum: Pneumomediastinum is unchanged. Bones/joints: Unremarkable. XR/XR chest 1V portable [id number] IMPRESSION: Endotracheal tube 7 cm above the jose alejandro at the superior margin of the clavicles, similar to previous. No other changes.
--- NOTE | 2023-09-28 21:02 | P.HP_ITS ---
Providers/Chief Complaint 2 Primary Care Provider: Dmitriy Goodwin MD Chief Complaint: found unresponsive History of Present Illness Pool Dubose is a 42 year old male with history of alcohol dependency, pancreatitis, depression, right BKA status post withdrawal seizures requiring intubation in the past, no history of alcohol related cirrhosis, presented today with severe withdrawal symptoms, breakthrough seizures. As per the EMS report patient had recurrent breakthrough seizures in route to the hospital, he was intubated in the ER because he was combative and not cooperative at all. Chest imaging revealed apical tiny pneumothorax, patient received labetalol for tachycardia svt in the ER. Patient is intubated:- information taken from the collaterals, I have called Kelly Segundoison who gave me the number of Mr. Loja [phone], I called Freedom: Freedom is stating that : Pool has been drinking half a gallon of vodka every day but for last 3 to 4 days he was sick he could not drink much and he was withdrawing, today when Freedom came back from work he heard a noise in the bedroom, when he checked Pool was seizing, he called 911, Pool had tonic-clonic episode for about 10 to 12 minutes, When I questioned him regarding family contact information, Freedom said: His father who lives in [place] has disowned him and he does not have his contact info Review of Systems 2 General: Reports: ROS unobtainable due to endotracheal tube Medications/Allergies Home Medications Medication Instructions Recorded Confirmed Last Taken Type celecoxib 200 mg capsule 200 mg PO BID arthritis #60 caps 01/12/23 02/09/23 Unknown Rx sertraline 100 mg tablet 100 mg PO .q am #30 tabs 01/25/23 02/09/23 Unknown Rx doxepin 50 mg capsule 50 mg PO .hs insomnia #30 caps 02/09/23 02/09/23 Unknown Rx hydroxyzine pamoate 25 mg capsule 25 mg PO TID PRN anxiety #30 caps 02/09/23 02/09/23 Unknown Rx Allergies Allergy/AdvReac Type Severity Reaction Status Date / Time No Known Allergies Allergy Verified 09/28/23 17:59 PFSH Acute 2 PFSH: Medical History Hypokalemia Major depressive disorder, recurrent episode Severe alcohol dependence in early remission Osteoarthritis involving multiple joints on both sides of body Insomnia disorder Psychiatric care 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 Medical cannabis use HAS A CURRENT MEDICAL CARD S/p tibial fracture TIBIA / FIBULA FX REPAIR Surgical History S/P BKA (below knee amputation) Right BKA Family History Denies family history of Anesthesia complication Bleeding disorder Social History Smoking and tobacco/nicotine status: current every day tobacco/nicotine user cigarettes Packs smoked per day: 1 [ Other cigarette details: >20 years] Second hand smoke exposure: No Alcohol intake: current Alcohol intake frequency: other Alcohol type: hard liquor Substance/Drug Use: current Substance/Drug use frequency: few times a week Lives independently: Yes Household members: family Marital status: Single Vitals/I&O/Wt Last Vital Signs Temp 97.9 F 09/28/23 17:53 Pulse 121 H 09/28/23 18:46 Resp 14 09/28/23 20:17 BP 129/97 09/28/23 18:46 Pulse Ox 87 L 09/28/23 18:46 O2 Del Method Nasal Cannula 09/28/23 18:46 O2 Flow Rate 2 09/28/23 18:46 FiO2 40 09/28/23 20:17 Weight last 48 hrs Weight 54.431 kg Physical Exam 2 Narrative: Patient is intubated and sedated Currently on propofol Hemodynamic stable Tachycardia Subcutaneous emphysema not present during my examination Multiple skin tattoos Afebrile Leg amputation Abdomen nondistended Neuro exam is limited Bilateral breath sounds Data 09/28/23 18:00 09/28/23 18:00 A&P Assessment and plan (1) Insomnia disorder: (2) Seizure: (3) Respiratory failure: (4) Hypokalemia: (5) Metabolic acidosis: (6) Cannabis dependence, uncomplicated: (7) Post-traumatic stress disorder, chronic: (8) Pneumothorax: (9) Hypercalcemia: Plan Withdrawal seizures Patient has been intubated and sedated Respiratory failure requiring mechanical ventilation for withdrawal seizures Significant leukocytosis, will add Zosyn concern related to aspiration pneumonia He is afebrile High lactic acid is related to prolonged seizure tonic-clonic episode Repeat ABG in the morning Serial chest x-ray to monitor pneumothorax worsening My goal will be to wean him off as soon as possible and during intubation use PEEP at the lowest value of 5, repeat x-ray has not shown worsening of pneumothorax He does not need chest tube he is hemodynamically stable He seems to have history of clavicle fracture Hypokalemia: We will give 80 mg KCl Had an episode of SVT required labetalol Check magnesium Patient has history of depression Was evaluated by psychiatrist in the past as well He does have medical marijuana card Hypercalcemia: Likely related to dehydration Recheck in the morning Alcohol-related hepatosteatosis Monitor liver enzymes for now No previous history of alcohol-related liver cirrhosis JOAN related to dehydration Anticipate improvement with IV fluid hydration Mild hyponatremia related to use of alcohol and dehydration Lives with a friend Freedom [phone]: Wants to be notified in case of any events FATHER NAME: Carlton Dubose as per the friend father has disowned him Full code DVT prophylaxis on board Attestations 2 Medical Necessity Statement*: More than 2 midnights anticipated Coding Level of Care Code Critical Care >/= 30 minutes Critical care time (in minutes): 45 The high probability of a clinically significant, sudden or life threatening deterioration, as referenced in this documentation, required my full and direct attention, intervention and personal management. The critical care time shown is in addition to time spent performing any reported separately billable procedures and includes the following: [x] Data and vital sign review and interpretation [x ] Patient assessment, examination and intervention [x] Medication orders and management [x] Patient/Family updates as able [x] Care Coordination and Documentation. Diagnoses Insomnia disorder G47.00 Seizure R56.9 Respiratory failure J96.90 Hypokalemia E87.6 Metabolic acidosis E87.20 Cannabis dependence, uncomplicated F12.20 Post-traumatic stress disorder, chronic F43.12 Pneumothorax J93.9 Hypercalcemia E83.52
[2023-09-28 21:20] LABS: Lactic Acid level (Lactate) 2.2 mmol/L (0.5-2.2)
[2023-09-28] MEDS: fentaNYL 1,000 MCG/100 ML BAG 2.5 MCG IV (21:31)
[2023-09-28] MEDS: sodium chloride 0.9% 1,000 ML 75 ML IV (21:31)
[2023-09-28 21:36] LABS: NT Pro B Type Natriuretic Pept 551 pg/mL (0-125); Procalcitonin 0.48 ng/mL (0-0.5)
[2023-09-28 22:19] LABS: Add Urine Microscopic? YES; Amphetamines Screen Urine Negative (Negative); Barbiturates Screen Urine Negative (Negative); Benzodiazepines Screen Urine Positive (Negative); Bilirubin Urine Neg (Negative); Blood Urine 3+ (Negative); Cocaine Screen Urine Negative (Negative); Glucose Urine UA Norm (Normal); Ketones Urine 2+ (Negative); Leukocyte Esterase Urine Negative (Negative); Nitrate Urine Negative (Negative); Opiate Screen Urine Negative (Negative); PCP Screen Urine Negative (Negative); Protein Urine 2+ (Negative); Sulfosalicylic Acid Urine Positive (Negative); THC Screen Urine Positive (Negative); Urine Appearance Hazy (CLEAR); Urine Color Yellow (Yellow); Urobilinogen Urine Neg (Negative); pH Urine 8 (5-7)
[2023-09-28 22:20] LABS: Add Urine Culture? No; Bacteria Urine 1+ /hpf; Hyaline Casts Urine 0-4 /lpf; Mucus Urine 2+ /hpf; Transitional Epi Cells Urine 0-4 /hpf
[2023-09-28] MEDS: propofol 10 mg/mL SDV 20 mL 40 MG IVP (22:47)
[2023-09-28 22:57] LABS: ABG PCO2 41.7 mmHg (35-45); ABG PH Result 7.53 (7.35-7.45); Alveolar-Arterial Oxygen Gradi 22.1 mmHg (5-10); Arterial Blood Gas Hematocrit 40.2 % (42-52); Base Excess ABG 10.7 mmol/L (-2.0-2.0); Blood Gas Allen Test Pos; Blood Gas Sample Site Radial, left; Blood Gas Sample Type Arterial; Carboxyhemoglobin 1.9 %THgb (0.4-20.1); HCO3 ABG 34.6 mmol/L (22-26); HGB O2 Sat 91.7 % (95-100); Ionized Calcium Level - ABG 1.1 mmol/L (1.1-1.4); Methemoglobin 0.7 % (0.4-1.5); Oxygen Device VENT; Oxygen Saturation ABG 94.2; PO2 ABG 63.2 mmHg (80.0-100.0); PO2 FiO2 Ratio Arterial Blood 0; Potassium Level - ABG 2.4 mmol/L (3.5-5.0); Total Hemoglobin 13.1 g/dL (14-18)
--- NOTE | 2023-09-28 23:43 | PC.NURSE ---
Report called to GRAY Bush in ICU. All questions and concerns addressed at time of report.
[2023-09-29] VITALS (109 sets, daily range): BP systolic 82–121; BP diastolic 49–86; PULSE 77–131; RESP 11–19; TEMP 36.6–37.3; O2SAT 88–100
--- NOTE | 2023-09-29 | PC.NURSE ---
Arrival to ICU: Pt arrived to ICU 11 @0362 09/28/23. Pt is intubated, eyes open and moving frequently but will not follow any commands. Bilateral wrist restraints in place. Propofol @55mcg/kg/hr. Fentanyl @100mcg/hr. Skin assessment completed- no open wounds noted.
[2023-09-29 00:37] LABS: Troponin 5 6HR 31.14 ng/L (0-15); Troponin 5 6HR Delta 10.14 ng/L (0-12)
[2023-09-29] MEDS: enoxaparin 40 mg/0.4 mL Syringe SUBCUT ×2 (00:55→23:45)
[2023-09-29 00:56] LABS: Vitamin B12 730 pg/mL (232-1245)
[2023-09-29] MEDS: piperacillin-tazobactam 3.375 GM in sodium chloride 0.9% (plus) 50 ML IV ×4 (01:02→23:43)
[2023-09-29] MEDS: lidocaine 1% 5 ML in potassium chloride premix 100 ML 26.25 ML IV (01:15)
[2023-09-29] MEDS: propofol 1,000 MG/100 ML INJ 14.7 MG IV (02:21)
[2023-09-29 04:56] LABS: ABG PCO2 46.5 mmHg (35-45); ABG PH Result 7.46 (7.35-7.45); Arterial Blood Gas Hematocrit 38.1 % (42-52); Base Excess ABG 8.3 mmol/L (-2.0-2.0); Blood Gas Allen Test Pos; Blood Gas Operator Identificat CAK; Blood Gas Sample Site Brachial, left; Blood Gas Sample Type Arterial; Blood Gas Tidal Volume 0.45; HCO3 ABG 33.2 mmol/L (22-26); Oxygen Device VENT; PO2 FiO2 Ratio Arterial Blood 0
[2023-09-29 04:57] LABS: Platelet Count 119 10^3/cmm (157-399)
[2023-09-29 04:58] LABS: Basophils % 0.2 %; Eosinophils % 0.1 %; Hematocrit 36.5 % (37-53); Lymphocytes # 1.7 10^3/uL (0.8-4.8); Lymphocytes % 18.3 %; Mean Corpuscular HGB Conc 33.2 g/dL (30-55); Mean Corpuscular Hemoglobin 32.8 pg (27-33); Mean Corpuscular Volume 98.9 fl (82-101); Mean Platelet Volume 11.1 fL (7.4-10.4); Monocytes # 0.7 10^3/uL (0.2-0.9); Monocytes % 7.7 %; Neutrophils # 6.94 10^3/uL (1.8-7.7); Neutrophils % 73.3 %; Nucleated Red Blood Cells % 0 %; Platelet Count 152 10^3/cmm (157-399); Red Blood Count 3.69 10^6/uL (3.85-5.65); Red Cell Distribution Width 15.2 % (12.1-15.1); White Blood Count 9.47 10^3/uL (3.29-11.43)
[2023-09-29] MEDS: lidocaine 1% 5 ML in potassium chloride premix 100 ML 25 ML IV (05:07)
[2023-09-29 05:14] LABS: INR 0.93 (0.8-1.2); Partial Thromboplastin Time 30.9 SECONDS (23.9-36.7)
[2023-09-29 05:16] LABS: Fibrinogen 337 mg/dL (174-498)
[2023-09-29 05:19] LABS: Lactate (Lactic Acid level) 1.3 mmol/L (0.5-2.2)
[2023-09-29 05:20] LABS: Alanine Aminotransferase 43 U/L (0-41); Albumin Level 3.5 g/dL (3.5-5.2); Alkaline Phosphatase 75 U/L (40-130); Aspartate Amino Transferase 67 U/L (0-40); Blood Urea Nitrogen 16 mg/dL (6-20); C Reactive Protein 37.6 mg/L (0.0-4.9); Calcium 8.3 mg/dL (8.5-10.5); Carbon Dioxide 31 mmol/L (22-29); Chloride 88 mmol/L (98-107); Globulin 2.5 g/dL (1.3-4.6); Glomerular Filtration Rate 91.7 mL/min (90-130); Glucose 60 mg/dL (65-115); Magnesium 2.2 mg/dL (1.7-2.3); Osmolality Calculated 275 mOsm/kg (285-295); Sodium 133 mmol/L (136-145); Total Bilirubin 0.9 mg/dL (0.15-1.2)
[2023-09-29 05:27] LABS: Creatine Phosphokinase 890 U/L (39-308)
--- NOTE | 2023-09-29 06:00 | XR_ITS ---
WS: [id number] Portable AP supine chest, 09/29/2023 Clinical Data: pneumothorax Comparison: Portable chest, 09/28/2023 Findings: The endotracheal tube and nasogastric tube are in good position. The heart is normal. No de finite pneumothorax is seen. There is minimal air in the subcutaneous tissue superior to the right cl avicle but it has diminished. There are monitor leads on the chest wall. There is internal fixation o f a right midclavicular fracture. Impression: 1. Satisfactory position of endotracheal tube and nasogastric tube. 2. Negative for pneumothorax. 3. Diminished subcutaneous air in right supraclavicular region.
[2023-09-29] MEDS: folic acid 1 mg Tablet PO (09:11)
--- NOTE | 2023-09-29 09:53 | PC.PHAR ---
PT UNABLE TO VERIFY HOME MEDICATIONS- CALLED PTS CONTACT LONDON(FRIEND) LONDON CONFIRMED THAT PT IS NON COMPLIANT WITH HOME MEDICATIONS AND HAS BEEN FOR A WHILE- MEDICATIONS REMOVED FROM HOME MEDICATION LIST AND CHANGED TO NO KNOWN
[2023-09-29] MEDS: sodium chloride 0.9% 1,000 ML 75 ML IV ×2 (10:19→23:41)
[2023-09-29] MEDS: midazolam hcl 100 MG/100 ML BAG IV (10:20)
[2023-09-29] MEDS: fentaNYL 1,000 MCG/100 ML BAG 6 MCG IV (10:21)
--- NOTE | 2023-09-29 17:09 | P.PN_ITS ---
Subjective 2 Subjective: Overnight labs and H&P reviewed. Remains intubated and sedated. Agitated this morning on attempting to wean down sedation. Medications: Reviewed: Yes Vitals/I&O/Wt Last Vital Signs Temp 97.8 F 09/29/23 08:00 Pulse 87 09/29/23 16:30 Resp 13 09/29/23 16:30 BP 93/61 09/29/23 16:30 Pulse Ox 95 09/29/23 16:30 O2 Del Method Mechanical Ventilation 09/29/23 16:30 O2 Flow Rate 2 09/28/23 18:46 FiO2 40 09/29/23 16:30 09/29/23 09/29/23 09/29/23 06:59 14:59 22:59 Intake Total 2963.013 / 3036.362 469.364 / 469.364 Output Total 400 / 400 Balance 2563.013 / 2636.362 469.364 / 469.364 Weight last 48 hrs Weight 54.885 kg Weight 54.885 kg Weight 54.431 kg Physical Exam 2 Narrative: General: Intubated, sedated, unable to assess HEENT: PERRLA, pupils bilaterally equal and reactive, pallors not present Chest: Normal vesicular breath sounds, no added sounds, equal good air entry bilaterally CVS: S1-S2 regular, no murmurs, no tachycardia, no gallops, no rubs Abdomen: Soft, nontender, no organomegaly, bowel sounds present Neuro: Unable to assess Urinary Catheter Management: Sharma: Cath Placed During This Visit: yes Reason for Continuing Indwelling Catheter: Accurate Measurement of Urinary Output in Critically Ill Patients Urinary Catheter Date of Insertion: 09/29/23 Urinary Catheter Time of Insertion: 00:00 Data 09/29/23 04:42 09/29/23 04:42 A&P Assessment and plan (1) Insomnia disorder: (2) Seizure: (3) Respiratory failure: (4) Hypokalemia: (5) Metabolic acidosis: (6) Cannabis dependence, uncomplicated: (7) Post-traumatic stress disorder, chronic: (8) Pneumothorax: (9) Hypercalcemia: Plan Withdrawal seizures Patient has been intubated and sedated Attempts to wean down sedation resulted in extreme agitation. Plan to continue sedation today, add Versed infusion. Can continue respiratory support with ventilation. Continue Zosyn concern related to aspiration pneumonia He is afebrile High lactic acid is related to prolonged seizure tonic-clonic episode, now resolved Serial chest x-ray to monitor pneumothorax worsening Hypokalemia: Improved Hypercalcemia: Likely related to dehydration Recheck in the morning Alcohol-related hepatosteatosis Monitor liver enzymes for now No previous history of alcohol-related liver cirrhosis JOAN related to dehydration Anticipate improvement with IV fluid hydration Mild hyponatremia related to use of alcohol and dehydration Lives with a friend Freedom [phone]: Wants to be notified in case of any events FATHER NAME: Carlton Dubose as per the friend father has disowned him Full code DVT prophylaxis on board Attestations 2 Medical Necessity Statement*: continued sedation today due to agitation, recheck CXR for PTX improvement, continued respiratory support Coding Level of Care Code Acute Code for g Fwd Diagnoses Insomnia disorder G47.00 Seizure R56.9 Respiratory failure J96.90 Hypokalemia E87.6 Metabolic acidosis E87.20 Cannabis dependence, uncomplicated F12.20 Post-traumatic stress disorder, chronic F43.12 Pneumothorax J93.9 Hypercalcemia E83.52
--- NOTE | 2023-09-29 19:02 | PC.NURSE ---
Shift summary: Pt remains intubated and sedated. Sedation changed today. Propofol stopped Versed started. Versed gtt is now at 5mg/hr and Fentanyl at 150mcg/hr. He remains at 405 FIO2. He has a black eye on the left and his eyeball is bloodshot. He has multiple little scabs over his body, mostly his arms and hands. NO seizure activity noted today. He did have tremors this am prior to the Versed infusing. He has Zosyn for antibiotic. His urine output was 475ml
[2023-09-29] MEDS: fentaNYL 1,000 MCG/100 ML BAG 14 MCG IV (19:37)
--- NOTE | 2023-09-29 20:37 | PC.NURSE ---
Yamile Score #1: Entered room @approximately 2015 to find pt awake, bend forward, reaching for ET tube with restrained hand. Pt appears agitated, evidence by frantically moving all extremities and throwing head around on the bed. Pts eyes are open and will look directly at this nurse. Pt squeezed fingers on command but would not follow any other commands. Sedation increased, see MAR for titration. Frequently checking restrains. ET tube remains in place , 26 @ the lip. Esthela, RT aware. Dr. Mcneal made aware, no new orders at this time.
--- NOTE | 2023-09-29 20:57 | PC.NURSE ---
Dr. Mcneal at bedside: Dr. Mcneal at bedside to see pt. New order to contact RT and tiral to extubate. Sedation turned off per Dr. Mcneal.
--- NOTE | 2023-09-29 21:00 | PC.NURSE ---
Addendum entered by Pretty Vigil RN 09/30/23 00:50: Witnessed waste of Fentalyl 81mLs and Versed 50mLs Original Note: Fent/Versed Wasted: 81 ml of Fentanyl and 50mls of Versed removed from pt room and wasted w/ Pretty Vigil RN
[2023-09-29] MEDS: PHENobarbital 130 mg/mL SDV 1 mL 120 MG IVP (21:44)
--- NOTE | 2023-09-29 22:57 | PC.NURSE ---
Extubated: Pt extubated by RT Esthela @8435 to RA. Pt tolerated well. Pt requesting a Dr. Pardo. Helping pt use moist mouth swabs. Pt answered all orientation questions correctly.
[2023-09-30] VITALS (11 sets, daily range): BP systolic 96–110; BP diastolic 58–87; PULSE 82–108; RESP 14–22; TEMP 37.2; O2SAT 90–100
--- NOTE | 2023-09-30 00:24 | PC.RESP ---
extubated to room air @2222 without incident
[2023-09-30] MEDS: PHENobarbital 130 mg/mL SDV 1 mL 120 MG IVP ×3 (01:32→08:10)
[2023-09-30] MEDS: piperacillin-tazobactam 3.375 GM in sodium chloride 0.9% (plus) 50 ML IV (08:10)
[2023-09-30] MEDS: folic acid 1 mg Tablet PO ×2 (08:11→08:13)
[2023-09-30] MEDS: acetaminophen 500 mg Tablet PO (08:38)
[2023-09-30] MEDS: lanolin oint 7 gm 1 APPLIC TOPICAL (08:58)
--- NOTE | 2023-09-30 09:02 | PC.NURSE ---
Upon morning assessment, patient states that he wants to leave. During bedside report the night shift supervisor nurse told this nurse that he wanted to leave AMA but they convinced him to stay the night. THis nurse explained the risks of leaving being withdrawal symptoms as he will no longer be getting phenobarbital, risk of seizures, and respiratory complications related to a pneumothorax he has. Patient is alert to person, place, time, and situation. Nurse has explained that even though he is leaving AMA he can always come back. Nurse called Dr yo and requested that she could come down and speak to him in more detail about risks of leaving AMA. Patient has agreed to stay a little bit longer to wait on Dr yo, but said he may leave before she gets here. Patient did not have any belongings upon arrival. Nurse was able to get a shirt and pants from crisis stabilization center. No shoes were available so multiple socks were provided. Patient doesn't have a phone so the nurse offered to call friend or family and have them pick him up and/or provide warmer clothes since it is cold outside, but the patient refused offer.
--- NOTE | 2023-09-30 10:22 | P.DS_ITS ---
Discharge Providers Date of Admission: 09/28/23 23:12 Date of Discharge: September 30, 2023 Attending Provider at Admission: Ruy Mcneal MD Attending Provider at Discharge: Bre Fields MD Primary Care Provider: Dmitriy Goodwin MD Diagnoses at Discharge Discharge Diagnosis (1) Insomnia disorder: Status: Acute (2) Seizure: Status: Acute (3) Respiratory failure: Status: Acute (4) Hypokalemia: Status: Acute (5) Metabolic acidosis: Status: Acute (6) Cannabis dependence, uncomplicated: Status: Acute (7) Post-traumatic stress disorder, chronic: Status: Acute (8) Pneumothorax: Status: Acute (9) Hypercalcemia: Status: Acute Reason for Visit Reason for Visit: found unresponsive Hospital Course Hospital Course Pool Dubose is a 42 year old male with history of alcohol dependency, pancreatitis, depression, right BKA status post withdrawal seizures requiring intubation in the past, presented with severe withdrawal symptoms and alcoholwithdrawal seziures. He was intubated upon admission for airway protection. Chest imaging had revealed a tiny apical pneumothorax and diffuse mediastinum. He remained intubated show 09/29/2023 and self extubated overnight. He wishes to leave AMA this morning. Repeat chest x-ray this morning shows that the pneumothorax has resolved. Diminished subcutaneous air in right supraclavicular region. He wishes to leave AMA this morning Physical Exam Urinary Catheter Management: Sharma: Cath Placed During This Visit: yes, but has since been removed by the nurse Reason for Continuing Indwelling Catheter: Decision to DC Catheter Urinary Catheter Date of Insertion: 09/29/23 Urinary Catheter Time of Insertion: 00:00 Date Urinary Catheter Removed: 09/30/23 Time Urinary Catheter Discontinued: 04:27 Discharge Data Studies Completed and Pending Completed Studies During Hospitalization Category Date Time Status CT cervical spin wo con* 43590 Stat Cat Scan 09/28/23 18:[address] chest wo con 74632 Stat Cat Scan 09/28/23 19:[address] head wo con* 74165 Stat Cat Scan 09/28/23 17:[address] neck wo con 32180 Stat Cat Scan 09/28/23 19:49 Completed CXRP [XR chest 1V portable [id number]] Stat Exams 09/28/23 19:40 Completed CXRP [XR chest 1V portable [id number]] Stat Exams 09/28/23 20:34 Completed XR chest 1V portable 70105 QAM Exams 09/29/23 06:00 Completed XR chest 1V portable [id number] Stat Exams 09/28/23 17:55 Completed XR chest 1V portable [id number] Stat Exams 09/28/23 20:55 Completed Pending at discharge Category Date Time Status Sputum Culture and Gram Stain Stat Lab 09/28/23 23:54 Results Radiology Impressions Head CT 09/28/23 17:55 IMPRESSION: No acute intracranial abnormality. Cervical Spine CT 09/28/23 18:15 IMPRESSION: 1. No acute cervical spinal fracture. 2. Minimal anterior/superior endplate height loss of the T1 vertebrae is favored to be chronic. Correlate with point tenderness. Chest CT 09/28/23 19:49 IMPRESSION: 1. Diffuse pneumomediastinum. The endotracheal tube tip is noted to abut the anterior wall of the trachea, recommend clinical correlation and repositioning as indicated. 2. Small right anterior/anteromedial pneumothorax. ADDENDUM: 09/28/232109 THIS REPORT CONTAINS FINDINGS THAT MAY BE CRITICAL TO PATIENT CARE. The findings were reviewed in the report by Dr. Travis Bee at 9:07 PM WASTE MANAGEMENT RECYCLING TECHNICIAN on 09/28/2023. No additional questions were had. The findings were acknowledged and understood. Neck CT 09/28/23 19:49 IMPRESSION: Partially seen 2 mm medial right apical pneumothorax correlating with the abnormality on the comparison x-ray chest. There is also pneumomediastinum present on CT. Subcutaneous emphysema in the neck greatest at the base is again present. Possible 3 mm foreign body in the right neck soft tissues. ADDENDUM: 09/28/232116 THIS REPORT CONTAINS FINDINGS THAT MAY BE CRITICAL TO PATIENT CARE. As of 9:16 PM WASTE MANAGEMENT RECYCLING TECHNICIAN on 09/28/2023, TRAVIS Verdin has received the exam report, is aware of the critical finding(s), and indicated no conference call is necessary to discuss the exam findings. Laboratory Results WBC 9.47 10^3/uL (3.29-11.43) 09/29/23 04:42 Corrected WBC Cancelled 09/29/23 03:15 RBC 3.69 10^6/uL (3.85-5.65) L 09/29/23 04:42 Hgb 12.10 g/dL (11.27-16.99) 09/29/23 04:42 Hct 36.5 % (37-53) L 09/29/23 04:42 MCV 98.9 fl (82-101) 09/29/23 04:42 MCH 32.8 pg (27-33) 09/29/23 04:42 MCHC 33.2 g/dL (30-55) 09/29/23 04:42 RDW 15.2 % (12.1-15.1) H 09/29/23 04:42 Plt Count 119 10^3/cmm (157-399) L 09/29/23 04:42 Plt Count 152 10^3/cmm (157-399) L 09/29/23 04:42 MPV 11.1 fL (7.4-10.4) H 09/29/23 04:42 Gran % Cancelled 09/29/23 03:15 Neut % (Auto) 73.3 % 09/29/23 04:42 Lymph % (Auto) 18.3 % 09/29/23 04:42 [place] % (Auto) 7.7 % 09/29/23 04:42 Eos % (Auto) 0.1 % 09/29/23 04:42 Baso % (Auto) 0.2 % 09/29/23 04:42 Neut # (Auto) 6.94 10^3/uL (1.8-7.7) 09/29/23 04:42 Lymph # (Auto) 1.7 10^3/uL (0.8-4.8) 09/29/23 04:42 [place] # (Auto) 0.7 10^3/uL (0.2-0.9) 09/29/23 04:42 Eos # (Auto) 0.0 10^3/uL (0.0-0.8) 09/29/23 04:42 Baso # (Auto) 0.0 10^3/uL (0.0-0.1) 09/29/23 04:42 Absolute Gran (auto) Cancelled 09/29/23 03:15 Nucleated RBC % (auto) 0 % 09/29/23 04:42 Nucleated RBCs # 0.0 /100WBC 09/29/23 04:42 PT 12.80 SECONDS (12.1-14.9) 09/29/23 04:42 INR 0.93 (0.8-1.2) 09/29/23 04:42 APTT 30.9 SECONDS (23.9-36.7) 09/29/23 04:42 Fibrinogen 337 mg/dL (174-498) 09/29/23 04:42 Specimen Type Arterial 09/29/23 04:45 Sample Site Brachial, left 09/29/23 04:45 ABG pH 7.46 (7.35-7.45) H 09/29/23 04:45 ABG pCO2 46.5 mmHg (35-45) H 09/29/23 04:45 ABG pO2 76.0 mmHg (80.0-100.0) L 09/29/23 04:45 ABG PO2/FiO2 Ratio 0 09/29/23 04:45 ABG HCO3 33.2 mmol/L (22-26) H 09/29/23 04:45 ABG O2 Saturation 94.2 09/28/23 22:50 ABG Base Excess 8.3 mmol/L (-2.0-2.0) H 09/29/23 04:45 Ulices Test Pos 09/29/23 04:45 A-a O2 Gradient 22.1 mmHg (5-10) H 09/28/23 22:50 Hematocrit 38.1 % (42-52) L 09/29/23 04:45 Hgb O2 Saturation 91.7 % (95-100) L 09/28/23 22:50 Carboxyhemoglobin 1.9 %THgb (0.4-20.1) 09/28/23 22:50 Methemoglobin 0.7 % (0.4-1.5) 09/28/23 22:50 Total Hemoglobin 13.1 g/dL (14-18) L 09/28/23 22:50 Sodium 133.0 mmol/L (131-143) 09/28/23 22:50 Potassium 2.4 mmol/L (3.5-5.0) L 09/28/23 22:50 Glucose 85.0 mg/dL (70-115) 09/28/23 22:50 Ionized Calcium 1.1 mmol/L (1.1-1.4) 09/28/23 22:50 O2 Delivery Device Vent 09/29/23 04:45 FiO2 35.0 % 09/29/23 04:45 Tidal Volume 0.45 09/29/23 04:45 PEEP 5.0 cmH20 09/29/23 04:45 Foreign Student Adviser ID Cak 09/29/23 04:45 Sodium 133 mmol/L (136-145) L 09/29/23 04:42 Potassium 4.0 mmol/L (3.5-5.1) 09/29/23 04:42 Chloride 88 mmol/L (98-107) L 09/29/23 04:42 Carbon Dioxide 31 mmol/L (22-29) H 09/29/23 04:42 Anion Gap 18.0 (5-19) 09/29/23 04:42 BUN 16 mg/dL (6-20) 09/29/23 04:42 Creatinine 0.9 mg/dL (0.7-1.2) 09/29/23 04:42 GFR Calculation 91.7 mL/min (90-130) 09/29/23 04:42 Glucose 60 mg/dL (65-115) L 09/29/23 04:42 Calculated Osmolality 275 mOsm/kg (285-295) L 09/29/23 04:42 Lactic Acid Cancelled 09/29/23 03:15 Lactic Acid (Sepsis) 2.2 mmol/L (0.5-2.2) 09/28/23 21:00 Lactate 1.3 mmol/L (0.5-2.2) 09/29/23 04:42 Calcium 8.3 mg/dL (8.5-10.5) L 09/29/23 04:42 Magnesium 2.2 mg/dL (1.7-2.3) 09/29/23 04:42 Total Bilirubin 0.9 mg/dL (0.15-1.2) 09/29/23 04:42 AST 67 U/L (0-40) H 09/29/23 04:42 ALT 43 U/L (0-41) H 09/29/23 04:42 Alkaline Phosphatase 75 U/L (40-130) 09/29/23 04:42 Creatine Kinase 890 U/L (39-308) H* 09/29/23 04:42 Troponin T Baseline 21 ng/L (0-15) H 09/28/23 18:00 Troponin T 120 Minute 27.46 ng/L (0-15) H 09/28/23 20:21 Delta Troponin T 6.46 ABS# (0-10) 09/28/23 20:21 Troponin T Hi Sens 6Hr 31.14 ng/L (0-15) H 09/29/23 00:10 Troponin T Hi Sens 6Hr Delta 10.14 ng/L (0-12) 09/29/23 00:10 C-Reactive Protein 37.6 mg/L (0.0-4.9) H 09/29/23 04:42 NT-Pro-B Natriuret Pep 551 pg/mL (0-125) H 09/28/23 20:21 Total Protein 6.0 g/dL (6.6-8.7) L D 09/29/23 04:42 Albumin 3.5 g/dL (3.5-5.2) 09/29/23 04:42 Globulin 2.5 g/dL (1.3-4.6) 09/29/23 04:42 Lipase 20 U/L (13-60) 09/28/23 18:00 Vitamin B12 730 pg/mL (232-1245) 09/29/23 00:10 Procalcitonin 0.48 ng/mL (0-0.5) 09/28/23 20:21 Urine Color Yellow (Yellow) 09/28/23 21:35 Urine Appearance Hazy (CLEAR) A 09/28/23 21:35 Urine pH 8 (5-7) H 09/28/23 21:35 Ur Specific [place] 1.010 (1.005-1.030) 09/28/23 21:35 Urine Protein 2+ (Negative) H 09/28/23 21:35 Urine Glucose (UA) Norm (Normal) 09/28/23 21:35 Urine Ketones 2+ (Negative) H 09/28/23 21:35 Urine Blood 3+ (Negative) H 09/28/23 21:35 Urine Nitrate Negative (Negative) 09/28/23 21:35 Urine Bilirubin Neg (Negative) 09/28/23 21:35 Prot Sulfosalicylic Acd Positive (Negative) 09/28/23 21:35 Urine Urobilinogen Neg mg/dL (Negative) 09/28/23 21:35 Ur Leukocyte Esterase Negative (Negative) 09/28/23 21:35 Urine RBC 5-10 /hpf (0-2) H 09/28/23 21:35 Urine WBC None /hpf (0-5) 09/28/23 21:35 Ur Squamous Epith Cells None /hpf (0-5) 09/28/23 21:35 Ur Transition Epith Cell 0-4 /hpf 09/28/23 21:35 Amorphous Sediment Not Reportable 09/28/23 21:35 Urine Bacteria 1+ /hpf (NONE) H 09/28/23 21:35 Hyaline Casts 0-4 /lpf H 09/28/23 21:35 Urine Mucus 2+ /hpf 09/28/23 21:35 Urine Opiates Screen Negative ng/mL (Negative) 09/28/23 21:35 Ur Barbiturates Screen Negative ng/mL (Negative) 09/28/23 21:35 Ur Phencyclidine Scrn Negative ng/mL (Negative) 09/28/23 21:35 Ur Amphetamines Screen Negative ng/mL (Negative) 09/28/23 21:35 U Benzodiazepines Scrn Positive ng/mL (Negative) H 09/28/23 21:35 Urine Cocaine Screen Negative ng/mL (Negative) 09/28/23 21:35 U Marijuana (THC) Screen Positive ng/mL (Negative) H 09/28/23 21:35 Ethyl Alcohol < 10 mg/dL (0-10) 09/28/23 18:00 Serum Ketones Negative (Negative) 09/28/23 18:00 Vitals Last Vital Signs Temp 98.9 F 09/30/23 04:00 Pulse 97 09/30/23 06:00 Resp 15 09/30/23 06:00 BP 110/86 09/30/23 06:00 Pulse Ox 96 09/30/23 06:00 O2 Del Method Room Air 09/30/23 06:00 O2 Flow Rate 2 09/28/23 18:46 FiO2 30 09/29/23 21:00 Discharge Plan Discharge Patient Disposition: Left Against Medical Advice Condition: Stable Prescriptions: No Action No Known Home Medications Referrals: Dmitriy Goodwin MD [Primary Care Provider] - Patient Instructions: Opioid Safety Discharge Attestations Time Spent in Discharge Care*: less than 30 min Quality Metrics Clinical Quality Measures [ No reported AMI, CVA or VTE this stay] Coding Level of Care Code Acute Code for Chg Fwd Diagnoses Insomnia disorder G47.00 Seizure R56.9 Respiratory failure J96.90 Hypokalemia E87.6 Metabolic acidosis E87.20 Cannabis dependence, uncomplicated F12.20 Post-traumatic stress disorder, chronic F43.12 Pneumothorax J93.9 Hypercalcemia E83.52
--- NOTE | 2023-09-30 11:53 | PC.NURSE ---
Patient Left AMA. All IVs removed. Education provided on symptoms to monitor and to report. Friend named loren who picked him up is also aware of symptoms to monitor.
== END 2023-09-30 11:50 | disposition left against medical advice (07) | DRG 894 ==
LOC: ER 19:17 → ICU 23:12
PROVIDERS: Family Medicine; Admitting Provider Internal Medicine; Emergency Provider Emergency Medicine; PCP Family Medicine Adult Medicine; Visit Provider Student in an Organized Health Care Education/Training Program
DX: F10.239 Alcohol dependence with withdrawal, unspecified (principal); J96.90 Respiratory failure, unspecified, unspecified whether with hypoxia or hypercapnia; J69.0 Pneumonitis due to inhalation of food and vomit; G40.89 Other seizures; F33.9 Major depressive disorder, recurrent, unspecified; I47.10 Supraventricular tachycardia, unspecified; E87.1 Hypo-osmolality and hyponatremia; N17.9 Acute kidney failure, unspecified; E87.20 Acidosis, unspecified; J93.9 Pneumothorax, unspecified; Z89.511 Acquired absence of right leg below knee; G47.00 Insomnia, unspecified; F12.20 Cannabis dependence, uncomplicated; F43.12 Post-traumatic stress disorder, chronic; E86.0 Dehydration; K76.89 Other specified diseases of liver; K76.0 Fatty (change of) liver, not elsewhere classified; E87.6 Hypokalemia; E83.52 Hypercalcemia
CPT/HCPCS: 36415; 36600; 51702; 70450; 70490; 71045; 71250; 72125; 80051; 80053; 80306; 80307; 81001; 82009; 82330; 82550; 82607; 82803; 82805; 83605; 83690; 83735; 83880; 84145; 84484; 85025; 85049; 85384; 85610; 85730; 86140; 87070; 87205; 93005; 94002; 94003; 94799; 96365; 96372; 96375; 96376; 99291; J1650; J2060; J2250; J2405; J2543; J2560; J2704; J3010; J3411; J3480; J3490; J7030